=== PATIENT | female | born 1985 | race Caucasian/White ===

== ENCOUNTER 2018-03-20 13:07 | Emergency (ER) | payer OTHER, SELFPAY ==
[2018-03-20 13:12] VITALS: BP 123/74; PULSE 96; RESP 24; TEMP 36.3; O2SAT 100; BMI 43.0
--- NOTE | 2018-03-20 13:41 | DI.RAD.S_ITS ---
PROCEDURE: XR CHEST 2V INDICATIONS: productive cough TECHNIQUE: 2 views of the chest were acquired. COMPARISON: None. FINDINGS: Surgical changes and devices: Central line from right sided approach, Port-A-Cath, extends to the atrial caval junction.. Lungs and pleura: No pleural effusions or pneumothorax. Lungs are clear. Mediastinum: Mediastinal contours are normal. Heart size is normal. Bones and chest wall: No suspicious bony abnormalities. Soft tissues appear unremarkable. IMPRESSION: No pneumonia found. Port-A-Cath tip at the atrial caval junction. No active disease found. Dictated by: Lavelle Griggs M.D. on 03/20/2018 at 14:17 Approved by: Lavelle Griggs M.D. on 03/20/2018 at 14:19
[2018-03-20 14:16] LABS: Bacteria Urine Moderate (10-30); RBC Urine 0-1/HPF (0-5/HPF); Squamous Epithelial Cell Urine 0-1 /HPF; WBC Urine 0-1/HPF (0-5/HPF)
[2018-03-20 14:18] LABS: Culture Indicated Urine Cult Not Indicated
[2018-03-20] MEDS: KETOROLAC 60 MG/2 ML VIAL IM (14:33)
[2018-03-20] MEDS: predniSONE 20 MG TABLET 40 MG PO (14:35)
[2018-03-20 14:39] VITALS: PULSE 84; RESP 18; O2SAT 95
[2018-03-20] MEDS: ALBUTEROL 2.5 MG/3 ML NEB (ADULT) INH (14:39)
[2018-03-20] MEDS: CYCLOBENZAPRINE 10 MG TABLET PO (15:33)
[2018-03-20 15:34] VITALS: BP 103/64; PULSE 82; RESP 18; TEMP 36.9; O2SAT 99
--- NOTE | 2018-03-20 18:36 | ED.SOB ---
HPI - SOB/Dyspnea <Cindy Arcos [employer]-BC - Last Filed: 03/20/18 18:46> General Chief Complaint: Shortness of Breath/Dyspnea Stated Complaint: STATES CAN'T BREATH Time Seen by Provider: 03/20/18 13:34 Source: patient and family Mode of arrival: ambulatory Limitations: no limitations History of Present Illness Patient presents with chief complaint of shortness of breath and wheezing. She states she has a history of asthma. She states she is out of her albuterol nebulizers. She is complaining of cough, slight fever. She states that her left rib hurts and her lungs were burning. She denies any vomiting or diarrhea or chest pain. Patient is any palpitations. She states that her ribs hurt only when being pressed or taking a deep breath. She denies any abdominal pain. She denies any urinary symptoms. She denies chance of . Related Data Home Medications Medication Instructions Recorded Confirmed hydroxychloroquine [Plaquenil] 200 mg PO BIDCC #0 02/28/17 03/20/18 omeprazole 20 mg PO BID #0 02/28/17 03/20/18 Benlysta 1 dose IM Q4W 03/20/18 03/20/18 Orenda 1 dose PO DAILY 03/20/18 03/20/18 Vitamin B-2 200 mg PO BID 03/20/18 03/20/18 epinephrine [EpiPen 2-Chris] 1 dose IM PRN PRN 03/20/18 03/20/18 melatonin 5 mg PO BEDTIME PRN 03/20/18 03/20/18 Previous Rx's Medication Instructions Recorded albuterol sulfate 2.5 mg INHALATION Q4-6H PRN #75 ml 03/20/18 prednisone 40 mg PO DAILY #8 tab 03/20/18 Allergies Allergy/AdvReac Type Severity Reaction Status Date / Time amoxicillin [AMOXICILLIN] Allergy Unknown Verified 03/20/18 14:32 betamethasone [BETAMETHASONE] Allergy Unknown Verified 03/20/18 14:32 clarithromycin [From BIAXIN] Allergy Unknown Verified 03/20/18 14:32 coconut [COCONUT] Allergy Unknown Verified 03/20/18 14:32 Iodinated Contrast- Oral and Allergy Unknown Verified 03/20/18 14:32 IV Dye [IODINATED CONTRAST- ORAL AND IV DYE] peanut [PEANUT] Allergy Unknown Verified 03/20/18 14:32 Penicillins [PENICILLINS] Allergy Unknown Verified 03/20/18 14:32 pineapple [PINEAPPLE] Allergy Unknown Verified 03/20/18 14:32 shellfish derived Allergy Unknown Verified 03/20/18 14:32 [SHELLFISH DERIVED] Review of Systems <Cindy ArcosMAJORP-BC - Last Filed: 03/20/18 18:46> Review of Systems GENERAL: Denies chills, fatigue, malaise, fever, sweats. HEENT: Denies sinus pain, ear pain, sore throat, difficulty swallowing, dizziness. RESPIRATORY: See HPI CARDIOVASCULAR: Denies chest pain, palpitations, orthopnea, edema, GASTROINTESTINAL: Denies nausea, vomiting, abdominal pain, diarrhea, constipation, melena. : Denies dysuria, frequency, incontinence, hematuria, urinary retention. MUSCULOSKELETAL: denies weakness, joint pain, or bony pain SKIN: Denies rash, skin lesions, or other NEUROLOGIC: Denies weakness, headache, numbness, change in speech, confusion, seizures, incoordination. PSYCHIATRIC: No concerning psychosocial issues. 12 point review of systems is negative except for those stated above Exam <Cindyalberto Seo[facility] - Last Filed: 03/20/18 18:46> Narrative Exam Narrative: GENERAL: obese patient laying back on stretcher HEAD: Atraumatic. Normocephalic. No temporal or scalp tenderness. EYES: Pupils equal round and reactive. Extraocular motions intact. No scleral icterus. No injection or drainage. ENT: Nose without bleeding, purulent drainage or septal hematoma. Throat without erythema, tonsillar hypertrophy or exudate. Uvula midline. Airway patent. NECK: Trachea midline. No JVD or lymphadenopathy. Supple, nontender, no meningeal signs. CARDIOVASCULAR: Regular rate and rhythm without murmurs, gallops, or rubs. RESPIRATORY: expiratory wheezes to auscultation bilaterally. No rales or rhonchi. no accessory muscle use noted. 2-3 word dyspnea noted. Dry cough noted on exam. Pain on lateral wall chest compression. No pain on anterior posterior chest wall compression. Pain on palpation right chest wall. GASTROINTESTINAL: Abdomen soft, non-tender, nondistended. No hepato-splenomegaly, or palpable masses. No guarding. EXTREMITIES: No clubbing, cyanosis, or edema. No joint tenderness, effusion, or edema noted. BACK: Nontender without deformity or crepitance. No flank tenderness. NEURO: AOx3. SKIN: No rash or erythema. Initial Vital Signs Initial Vital Signs: Vital Signs Temperature 97.3 F L 03/20/18 13:12 Pulse Rate 96 H 03/20/18 13:12 Respiratory Rate 24 03/20/18 13:12 Blood Pressure 123/74 03/20/18 13:12 Pulse Oximetry 100 03/20/18 13:12 <Mehdi Esquivel DO - Last Filed: 03/20/18 19:50> Initial Vital Signs Initial Vital Signs: Vital Signs Temperature 97.3 F L 03/20/18 13:12 Pulse Rate 96 H 03/20/18 13:12 Respiratory Rate 24 03/20/18 13:12 Blood Pressure 123/74 03/20/18 13:12 Pulse Oximetry 100 03/20/18 13:12 Course <NINA Oliver - Last Filed: 03/20/18 18:46> Orders Ordered: ED Orders 03/20/18 13:41 XR chest 2V Stat RT Consult Eval and Treat Now 03/20/18 14:00 Urine Microscopic Stat Discontinued Medications Albuterol (Ventolin) 2.5 mg INH NOW ONE Stop: 03/20/18 14:34 Last Admin: 03/20/18 14:39 Dose: 2.5 mg Cyclobenzaprine HCl (Flexeril) 10 mg PO NOW ONE Stop: 03/20/18 15:04 Last Admin: 03/20/18 15:33 Dose: 10 mg Ketorolac Tromethamine (Toradol) 60 mg IM NOW ONE Stop: 03/20/18 13:43 Last Admin: 03/20/18 14:33 Dose: 60 mg Prednisone (Deltasone) 40 mg PO NOW ONE Stop: 03/20/18 13:48 Last Admin: 03/20/18 14:35 Dose: 40 mg Vital Signs - 8 hr 03/20/18 13:12 03/20/18 14:39 03/20/18 15:34 Temperature 97.3 F L 98.5 F Pulse Rate 96 H 84 82 Respiratory Rate 24 18 18 Blood Pressure 123/74 103/64 Pulse Oximetry 100 95 99 <Mehdi Esquivel DO - Last Filed: 03/20/18 19:50> Orders Ordered: ED Orders 03/20/18 13:41 XR chest 2V Stat RT Consult Eval and Treat Now 03/20/18 14:00 Urine Microscopic Stat Discontinued Medications Albuterol (Ventolin) 2.5 mg INH NOW ONE Stop: 03/20/18 14:34 Last Admin: 03/20/18 14:39 Dose: 2.5 mg Cyclobenzaprine HCl (Flexeril) 10 mg PO NOW ONE Stop: 03/20/18 15:04 Last Admin: 03/20/18 15:33 Dose: 10 mg Ketorolac Tromethamine (Toradol) 60 mg IM NOW ONE Stop: 03/20/18 13:43 Last Admin: 03/20/18 14:33 Dose: 60 mg Prednisone (Deltasone) 40 mg PO NOW ONE Stop: 03/20/18 13:48 Last Admin: 03/20/18 14:35 Dose: 40 mg Vital Signs - 8 hr 03/20/18 13:12 03/20/18 14:39 03/20/18 15:34 Temperature 97.3 F L 98.5 F Pulse Rate 96 H 84 82 Respiratory Rate 24 18 18 Blood Pressure 123/74 103/64 Pulse Oximetry 100 95 99 MDM - SOB/Dyspnea <NINA Oliver - Last Filed: 03/20/18 18:46> Lab Data Lab Results 03/20/18 Range/Units 14:00 Urine RBC 0-1/hpf (0-5/HPF) Urine WBC 0-1/hpf (0-5/HPF) Ur Squamous Epith Cells 0-1 /hpf Urine Bacteria Moderate (10-30) H (None) Ur Culture Indicated? Cult not indicated Micro UA Comment call if culture need Point of Care Testing Test Results Negative Urine Dip Bedside Urine Glucose Negative Bedside Urine Bilirubin - Negative Bedside Urine Ketone - Negative Urine Specific [place] 1.01 Bedside Urine Occult Blood + Bedside Urine pH 7.0 Bedside Urine Protein - Negative Bedside Urine Urobilinogen - Negative Bedside Urine Nitrite - Negative Bedside Urine Leukocytes - Negative Esterase Imaging Data Chest x-ray: Radiologist's impression: [address] [address] XRay Report Signed Patient: Ania Dejesus RMR#: [id number] : 1985Acct:[id number] Age/Sex: 32 / FDate of Service: 03/20/18 Loc: ED Accession Number: [id number] Procedure: XR chest 2V Ordering Provider: Cindy Arcos PROCEDURE: XR CHEST 2V INDICATIONS: productive cough TECHNIQUE: 2 views of the chest were acquired. COMPARISON: None. FINDINGS: Surgical changes and devices: Central line from right sided approach, Port-A-Cath, extends to the atrial caval junction.. Lungs and pleura: No pleural effusions or pneumothorax. Lungs are clear. Mediastinum: Mediastinal contours are normal. Heart size is normal. Bones and chest wall: No suspicious bony abnormalities. Soft tissues appear unremarkable. IMPRESSION: No pneumonia found. Port-A-Cath tip at the atrial caval junction. No active disease found. Dictated by: Lavelle Griggs M.D. on 03/20/2018 at 14:17 Approved by: Lavelle Griggs M.D. on 03/20/2018 at 14:19 [facility] Narrative Medical decision making narrative: Patient presents with chief complaint of shortness of breath. She had is an asthma patient who has not her medications. She remained hemodynamically stable in the emergency department. Her x-ray showed no acute etiology. Her breathing was much improved after nebulizer treatment as well as p.o. steroids. Thus I placed her in a p.o. steroid burst, refilled her albuterol nebulizers, and discussed follow up with primary care provider. She does have chest wall pain to musculoskeletal palpation on exam. Thus she states she has plenty of naproxen and muscle relaxers at home. She had no questions or concerns upon discharge. <Mehdi Esquivel, DO - Last Filed: 03/20/18 19:50> Lab Data Lab Results 03/20/18 Range/Units 14:00 Urine RBC 0-1/hpf (0-5/HPF) Urine WBC 0-1/hpf (0-5/HPF) Ur Squamous Epith Cells 0-1 /hpf Urine Bacteria Moderate (10-30) H (None) Ur Culture Indicated? Cult not indicated Micro UA Comment call if culture need Point of Care Testing Test Results Negative Urine Dip Bedside Urine Glucose Negative Bedside Urine Bilirubin - Negative Bedside Urine Ketone - Negative Urine Specific [place] 1.01 Bedside Urine Occult Blood + Bedside Urine pH 7.0 Bedside Urine Protein - Negative Bedside Urine Urobilinogen - Negative Bedside Urine Nitrite - Negative Bedside Urine Leukocytes - Negative Esterase Discharge Plan Departure Patient Disposition: Home Clinical Impression: Asthma exacerbation, Chest wall pain Discharge Date/Time: 03/20/18 15:41 Interventions: ED Discharge Assessment Last Done: 03/20/18 15:34 Instructions: DI for Asthma -- Adult, DI for Costochondritis Activity Restrictions/Additional Instructions: Your chest x-ray showed no pneumonia today. I am starting you on prednisone to take for several days given the severity of your wheezing. I am also giving you some albuterol nebulizers to take as needed. Please follow-up with her primary care for new or worsening symptoms. I also suggested using NSAIDs and/or heat or ice given her rib pain. Please do not take any NSAIDs such as naproxen or ibuprofen for 8 hr after your Toradol injection. Please follow-up her primary care provider. Please monitor for chest pain shortness of breath or other acute concerns and feel free to come back to the emergency department if needed. Prescriptions: New albuterol sulfate 2.5 mg /3 mL (0.083 %) solution for nebulization 2.5 mg INHALATION Q4-6H PRN (Reason: wheezing ) Qty: 75 RF: 0 prednisone 20 mg tablet 40 mg PO DAILY Qty: 8 RF: 0 No Action omeprazole 20 MG capsule,delayed release(DR/EC) 20 mg PO BID Qty: 0 RF: 0 hydroxychloroquine [Plaquenil] 200 MG tablet 200 mg PO BIDCC Qty: 0 RF: 0 epinephrine [EpiPen 2-Chris] 0.3 mg/0.3 mL auto-injector 1 dose IM PRN PRN (Reason: Allergic Reaction) RF: 0 melatonin 5 mg Tablet 5 mg PO BEDTIME PRN (Reason: Sleep) RF: 0 Benlysta 1 dose IM Q4W RF: 0 Orenda 1 dose PO DAILY RF: 0 Vitamin B-2 200 mg 200 mg PO BID RF: 0 Referrals: Denise Patel [Primary Care Provider] - <Mehdi Esquivel DO - Last Filed: 03/20/18 19:50> Cosign ED Attending Cory Attestation: I was immediately available in the department for consultation. Documentation has been reviewed. I agree with assessment and plan.
--- NOTE | 2018-03-20 18:46 | ED_ITS ---
HPI - SOB/Dyspnea <Cindy Arcos W[employer] ASSISTANT-BC - Last Filed: 03/20/18 18:46> General Chief Complaint: Shortness of Breath/Dyspnea Stated Complaint: STATES CAN'T BREATH Time Seen by Provider: 03/20/18 13:34 Source: patient and family Mode of arrival: ambulatory Limitations: no limitations History of Present Illness Patient presents with chief complaint of shortness of breath and wheezing. She states she has a history of asthma. She states she is out of her albuterol nebulizers. She is complaining of cough, slight fever. She states that her left rib hurts and her lungs were burning. She denies any vomiting or diarrhea or chest pain. Patient is any palpitations. She states that her ribs hurt only when being pressed or taking a deep breath. She denies any abdominal pain. She denies any urinary symptoms. She denies chance of . Related Data Home Medications Medication Instructions Recorded Confirmed hydroxychloroquine [Plaquenil] 200 mg PO BIDCC #0 02/28/17 03/20/18 omeprazole 20 mg PO BID #0 02/28/17 03/20/18 Benlysta 1 dose IM Q4W 03/20/18 03/20/18 Orenda 1 dose PO DAILY 03/20/18 03/20/18 Vitamin B-2 200 mg PO BID 03/20/18 03/20/18 epinephrine [EpiPen 2-Chris] 1 dose IM PRN PRN 03/20/18 03/20/18 melatonin 5 mg PO BEDTIME PRN 03/20/18 03/20/18 Previous Rx's Medication Instructions Recorded albuterol sulfate 2.5 mg INHALATION Q4-6H PRN #75 ml 03/20/18 prednisone 40 mg PO DAILY #8 tab 03/20/18 Allergies Allergy/AdvReac Type Severity Reaction Status Date / Time amoxicillin [AMOXICILLIN] Allergy Unknown Verified 03/20/18 14:32 betamethasone [BETAMETHASONE] Allergy Unknown Verified 03/20/18 14:32 clarithromycin [From BIAXIN] Allergy Unknown Verified 03/20/18 14:32 coconut [COCONUT] Allergy Unknown Verified 03/20/18 14:32 Iodinated Contrast- Oral and Allergy Unknown Verified 03/20/18 14:32 IV Dye [IODINATED CONTRAST- ORAL AND IV DYE] peanut [PEANUT] Allergy Unknown Verified 03/20/18 14:32 Penicillins [PENICILLINS] Allergy Unknown Verified 03/20/18 14:32 pineapple [PINEAPPLE] Allergy Unknown Verified 03/20/18 14:32 shellfish derived Allergy Unknown Verified 03/20/18 14:32 [SHELLFISH DERIVED] Review of Systems <Cindy ArcosMAJORP-BC - Last Filed: 03/20/18 18:46> Review of Systems GENERAL: Denies chills, fatigue, malaise, fever, sweats. HEENT: Denies sinus pain, ear pain, sore throat, difficulty swallowing, dizziness. RESPIRATORY: See HPI CARDIOVASCULAR: Denies chest pain, palpitations, orthopnea, edema, GASTROINTESTINAL: Denies nausea, vomiting, abdominal pain, diarrhea, constipation, melena. : Denies dysuria, frequency, incontinence, hematuria, urinary retention. MUSCULOSKELETAL: denies weakness, joint pain, or bony pain SKIN: Denies rash, skin lesions, or other NEUROLOGIC: Denies weakness, headache, numbness, change in speech, confusion, seizures, incoordination. PSYCHIATRIC: No concerning psychosocial issues. 12 point review of systems is negative except for those stated above Exam <Cindyalberto Seoalyson [facility] - Last Filed: 03/20/18 18:46> Narrative Exam Narrative: GENERAL: obese patient laying back on stretcher HEAD: Atraumatic. Normocephalic. No temporal or scalp tenderness. EYES: Pupils equal round and reactive. Extraocular motions intact. No scleral icterus. No injection or drainage. ENT: Nose without bleeding, purulent drainage or septal hematoma. Throat without erythema, tonsillar hypertrophy or exudate. Uvula midline. Airway patent. NECK: Trachea midline. No JVD or lymphadenopathy. Supple, nontender, no meningeal signs. CARDIOVASCULAR: Regular rate and rhythm without murmurs, gallops, or rubs. RESPIRATORY: expiratory wheezes to auscultation bilaterally. No rales or rhonchi. no accessory muscle use noted. 2-3 word dyspnea noted. Dry cough noted on exam. Pain on lateral wall chest compression. No pain on anterior posterior chest wall compression. Pain on palpation right chest wall. GASTROINTESTINAL: Abdomen soft, non-tender, nondistended. No hepato-splenomegaly , or palpable masses. No guarding. EXTREMITIES: No clubbing, cyanosis, or edema. No joint tenderness, effusion, or edema noted. BACK: Nontender without deformity or crepitance. No flank tenderness. NEURO: AOx3. SKIN: No rash or erythema. Initial Vital Signs Initial Vital Signs: Vital Signs Temperature 97.3 F L 03/20/18 13:12 Pulse Rate 96 H 03/20/18 13:12 Respiratory Rate 24 03/20/18 13:12 Blood Pressure 123/74 03/20/18 13:12 Pulse Oximetry 100 03/20/18 13:12 <Mehdi Esquivel DO - Last Filed: 03/20/18 19:50> Initial Vital Signs Initial Vital Signs: Vital Signs Temperature 97.3 F L 03/20/18 13:12 Pulse Rate 96 H 03/20/18 13:12 Respiratory Rate 24 03/20/18 13:12 Blood Pressure 123/74 03/20/18 13:12 Pulse Oximetry 100 03/20/18 13:12 Course <NINA lOiver - Last Filed: 03/20/18 18:46> Orders Ordered: ED Orders 03/20/18 13:41 XR chest 2V Stat RT Consult Eval and Treat Now 03/20/18 14:00 Urine Microscopic Stat Discontinued Medications Albuterol (Ventolin) 2.5 mg INH NOW ONE Stop: 03/20/18 14:34 Last Admin: 03/20/18 14:39 Dose: 2.5 mg Cyclobenzaprine HCl (Flexeril) 10 mg PO NOW ONE Stop: 03/20/18 15:04 Last Admin: 03/20/18 15:33 Dose: 10 mg Ketorolac Tromethamine (Toradol) 60 mg IM NOW ONE Stop: 03/20/18 13:43 Last Admin: 03/20/18 14:33 Dose: 60 mg Prednisone (Deltasone) 40 mg PO NOW ONE Stop: 03/20/18 13:48 Last Admin: 03/20/18 14:35 Dose: 40 mg Vital Signs - 8 hr 03/20/18 13:12 03/20/18 14:39 03/20/18 15:34 Temperature 97.3 F L 98.5 F Pulse Rate 96 H 84 82 Respiratory Rate 24 18 18 Blood Pressure 123/74 103/64 Pulse Oximetry 100 95 99 <Mehdi Esquivel DO - Last Filed: 03/20/18 19:50> Orders Ordered: ED Orders 03/20/18 13:41 XR chest 2V Stat RT Consult Eval and Treat Now 03/20/18 14:00 Urine Microscopic Stat Discontinued Medications Albuterol (Ventolin) 2.5 mg INH NOW ONE Stop: 03/20/18 14:34 Last Admin: 03/20/18 14:39 Dose: 2.5 mg Cyclobenzaprine HCl (Flexeril) 10 mg PO NOW ONE Stop: 03/20/18 15:04 Last Admin: 03/20/18 15:33 Dose: 10 mg Ketorolac Tromethamine (Toradol) 60 mg IM NOW ONE Stop: 03/20/18 13:43 Last Admin: 03/20/18 14:33 Dose: 60 mg Prednisone (Deltasone) 40 mg PO NOW ONE Stop: 03/20/18 13:48 Last Admin: 03/20/18 14:35 Dose: 40 mg Vital Signs - 8 hr 03/20/18 13:12 03/20/18 14:39 03/20/18 15:34 Temperature 97.3 F L 98.5 F Pulse Rate 96 H 84 82 Respiratory Rate 24 18 18 Blood Pressure 123/74 103/64 Pulse Oximetry 100 95 99 MDM - SOB/Dyspnea <NINA Oliver - Last Filed: 03/20/18 18:46> Lab Data Lab Results 03/20/18 Range/Units 14:00 Urine RBC 0-1/hpf (0-5/HPF) Urine WBC 0-1/hpf (0-5/HPF) Ur Squamous Epith Cells 0-1 /hpf Urine Bacteria Moderate (10-30) H (None) Ur Culture Indicated? Cult not indicated Micro UA Comment call if culture need Point of Care Testing Test Results Negative Urine Dip Bedside Urine Glucose Negative Bedside Urine Bilirubin - Negative Bedside Urine Ketone - Negative Urine Specific [place] 1.01 Bedside Urine Occult Blood + Bedside Urine pH 7.0 Bedside Urine Protein - Negative Bedside Urine Urobilinogen - Negative Bedside Urine Nitrite - Negative Bedside Urine Leukocytes - Negative Esterase Imaging Data Chest x-ray: Radiologist's impression: [address] [address] XRay Report Signed Patient: Ania Dejesus RMR#: [id number] : 1985Acct:[id number] Age/Sex: 32 / FDate of Service: 03/20/18 Loc: ED Accession Number: [id number] Procedure: XR chest 2V Ordering Provider: Cindy Arcos PROCEDURE: XR CHEST 2V INDICATIONS: productive cough TECHNIQUE: 2 views of the chest were acquired. COMPARISON: None. FINDINGS: Surgical changes and devices: Central line from right sided approach, Port-A- Cath, extends to the atrial caval junction.. Lungs and pleura: No pleural effusions or pneumothorax. Lungs are clear. Mediastinum: Mediastinal contours are normal. Heart size is normal. Bones and chest wall: No suspicious bony abnormalities. Soft tissues appear unremarkable. IMPRESSION: No pneumonia found. Port-A-Cath tip at the atrial caval junction. No active disease found. Dictated by: Lavelle Griggs M.D. on 03/20/2018 at 14:17 Approved by: Lavelle Griggs M.D. on 03/20/2018 at 14:19 [facility] Narrative Medical decision making narrative: Patient presents with chief complaint of shortness of breath. She had is an asthma patient who has not her medications. She remained hemodynamically stable in the emergency department. Her x-ray showed no acute etiology. Her breathing was much improved after nebulizer treatment as well as p.o. steroids. Thus I placed her in a p.o. steroid burst, refilled her albuterol nebulizers, and discussed follow up with primary care provider. She does have chest wall pain to musculoskeletal palpation on exam. Thus she states she has plenty of naproxen and muscle relaxers at home. She had no questions or concerns upon discharge. <Mehdi Esquivel, DO - Last Filed: 03/20/18 19:50> Lab Data Lab Results 03/20/18 Range/Units 14:00 Urine RBC 0-1/hpf (0-5/HPF) Urine WBC 0-1/hpf (0-5/HPF) Ur Squamous Epith Cells 0-1 /hpf Urine Bacteria Moderate (10-30) H (None) Ur Culture Indicated? Cult not indicated Micro UA Comment call if culture need Point of Care Testing Test Results Negative Urine Dip Bedside Urine Glucose Negative Bedside Urine Bilirubin - Negative Bedside Urine Ketone - Negative Urine Specific [place] 1.01 Bedside Urine Occult Blood + Bedside Urine pH 7.0 Bedside Urine Protein - Negative Bedside Urine Urobilinogen - Negative Bedside Urine Nitrite - Negative Bedside Urine Leukocytes - Negative Esterase Discharge Plan Departure Patient Disposition: Home Clinical Impression: Asthma exacerbation, Chest wall pain Discharge Date/Time: 03/20/18 15:41 Interventions: ED Discharge Assessment Last Done: 03/20/18 15:34 Instructions: DI for Asthma -- Adult, DI for Costochondritis Activity Restrictions/Additional Instructions: Your chest x-ray showed no pneumonia today. I am starting you on prednisone to take for several days given the severity of your wheezing. I am also giving you some albuterol nebulizers to take as needed. Please follow-up with her primary care for new or worsening symptoms. I also suggested using NSAIDs and/or heat or ice given her rib pain. Please do not take any NSAIDs such as naproxen or ibuprofen for 8 hr after your Toradol injection. Please follow-up her primary care provider. Please monitor for chest pain shortness of breath or other acute concerns and feel free to come back to the emergency department if needed. Prescriptions: New albuterol sulfate 2.5 mg /3 mL (0.083 %) solution for nebulization 2.5 mg INHALATION Q4-6H PRN (Reason: wheezing ) Qty: 75 RF: 0 prednisone 20 mg tablet 40 mg PO DAILY Qty: 8 RF: 0 No Action omeprazole 20 MG capsule,delayed release(DR/EC) 20 mg PO BID Qty: 0 RF: 0 hydroxychloroquine [Plaquenil] 200 MG tablet 200 mg PO BIDCC Qty: 0 RF: 0 epinephrine [EpiPen 2-Chris] 0.3 mg/0.3 mL auto-injector 1 dose IM PRN PRN (Reason: Allergic Reaction) RF: 0 melatonin 5 mg Tablet 5 mg PO BEDTIME PRN (Reason: Sleep) RF: 0 Benlysta 1 dose IM Q4W RF: 0 Orenda 1 dose PO DAILY RF: 0 Vitamin B-2 200 mg 200 mg PO BID RF: 0 Referrals: Denise Patel [Primary Care Provider] - <Mehdi Esquivel DO - Last Filed: 03/20/18 19:50> Cosign ED Attending Cory Attestation: I was immediately available in the department for consultation. Documentation has been reviewed. I agree with assessment and plan.
== END 2018-03-20 15:41 | disposition home or self-care (01) ==
PROVIDERS: Emergency Provider Nurse Practitioner Family; PCP Physician Assistant Medical
DX: J45.901 Unspecified asthma with (acute) exacerbation (principal); R07.89 Other chest pain
CPT/HCPCS: 71046; 81003; 81015; 81025; 94640; 96372; 99282; 99284; J1885; J7613

== ENCOUNTER 2018-04-08 06:03 | Day surgery (SDC) | payer OTHER, SELFPAY ==
[2018-04-02 09:04] VITALS: BMI 44.9
[2018-04-08] VITALS (9 sets, daily range): BP systolic 113–119; BP diastolic 67–78; PULSE 82–105; RESP 12–21; TEMP 36.6–37.4; O2SAT 95–100; BMI 44.9
[2018-04-08] MEDS: LACTATED RINGERS 1,000 ML 42 ML IV (06:55)
--- NOTE | 2018-04-08 07:31 | PM.PREOP ---
Pre-operative Note Interval Note Pre-op Check: Yes History & Physical Reviewed by Physician Changes: No
--- NOTE | 2018-04-08 07:38 | PM.OP.1 ---
Operative Date/Time/Diagnoses Date of procedure: 04/08/18 Time of procedure: 07:38 Pre-op diagnosis: Recurrent ingrown toenail spicules both great toes. Post-op diagnosis: same Procedure & Clinicians Procedure: Right and left great toe revision matrixectomies Same procedure as scheduled: Yes Indications: Recurrent spicules to the great toenails with pain on both feet Surgeon: Jaimie Mackay Click Yes if Unassisted: Yes Anesthesia Type: General and Local Operative Notes Closure Type: not applicable Specimen(s): none sent Estimated Blood Loss (mL): 1 Blood products transfused: none Tourniquet time (min): 19 Procedure in detail: Patient was brought to the operating room and placed on the operative table in supine position. Following induction of general anesthesia the above injectables were delivered to the patient. The feet were prepped and draped in the usual aseptic manner. After check of anesthesia Nyasia drain was placed about the left hallux. Nail spicules were removed and the central area of the nail was checked to determine if any further the nail was present here. There appeared to be a thin layer of thicker skin centrally that I could not rule out as portion of nail, so it was removed as well. The surrounding skin was protected with triple antibiotic ointment series 4 applications of phenol at 30 sec each were placed in each of these areas. Following each the area was curetted from the last was rinsed with alcohol. The tourniquet was deflated. A prompt hyperemic response was seen to the toe. The area was cleaned and dressed with triple antibiotic ointment Xeroform 4x4s and gently placed Coban. The same procedure was performed to the right great toe, however there was not any central nail to remove, just medial and lateral nail spicules which were removed. Complications: none Condition: stable Disposition: PACU Plan for aftercare: Following a period of postoperative monitoring the patient be discharged home on written and oral postoperative instructions including keeping the dressings dry and intact however tomorrow will be her 1st postoperative dressing change. She will also start doing her soaks tomorrow and is given triple antibiotic ointment as well as Xeroform and we have reviewed instructions preoperatively in our visit and she is also given a handout to remind her once again how to care for these. She is going to stop by our office to pharmacy picking technician a prescription for postoperative shoes as she found last night that she did not have them when she thought she did. We will see her for her postoperative visit in about 7-10 days.
[2018-04-08] MEDS: ONDANSETRON 4 MG/2 ML INJ IV (07:40)
[2018-04-08] MEDS: MIDAZOLAM 2 MG/2 ML VIAL IV (07:45)
[2018-04-08] MEDS: SCOPOLAMINE 1 PATCH TOP (07:45)
[2018-04-08] MEDS: CLINDAMYCIN 600 MG/50 ML PIGGYBACK 50 MG IV (07:50)
--- NOTE | 2018-04-08 08:16 | SUR.OPER ---
Supine on padded OR bed, head on pillow, arms secured on padded arm boards at <90 degrees abduction, legs uncrossed, safety belt at thigh, tape over blanket over lower legs.
--- NOTE | 2018-04-08 08:30 | SUR.OPER ---
antonio tourniquet up bilaterally at 0811 and down at 0830.
[2018-04-08] MEDS: LORazepam 2 MG/ML SYRINGE 0.5 MG IV (08:57)
== END 2018-04-08 09:47 | disposition home or self-care (01) ==
PROVIDERS: PCP Physician Assistant Medical; Visit Provider Podiatrist
PROC: 0HTRXZZ Resection of Toe Nail, External Approach (ICD-10-PCS; CPT 11750; principal; 2018-04-08 07:45)
DX: L60.0 Ingrowing nail (principal); E66.9 Obesity, unspecified; M32.9 Systemic lupus erythematosus, unspecified; F41.9 Anxiety disorder, unspecified; F43.10 Post-traumatic stress disorder, unspecified; Z68.41 Body mass index [BMI] 40.0-44.9, adult
CPT/HCPCS: 11750 ×2; J1100; J2060; J2250; J2405; J2704; J2765; J3010

== ENCOUNTER 2018-06-05 12:23 | Emergency (ER) | payer OTHER, SELFPAY ==
[2018-06-05 12:30] VITALS: BP 134/62; PULSE 100; RESP 18; TEMP 37.3; O2SAT 100; BMI 39.4
[2018-06-05 12:41] LABS: RBC Urine None Seen (0-5/HPF)
--- NOTE | 2018-06-05 12:43 | ED_ITS ---
HPI - Fever <Giovanni TC Alexandra - Last Filed: 06/05/18 21:19> General Chief Complaint: Fever Stated Complaint: FEVER,HAD KIDNEY INFECTION Time Seen by Provider: 06/05/18 12:24 Source: patient Mode of arrival: ambulatory Limitations: no limitations History of Present Illness HPI Narrative: 32-year-old female with history a asthma is a nonsmoker here for complaint fever over the past couple of days with right flank pain and increased urinary frequency. She reports that 10 days ago she was treated for urinary tract infection and was placed on ciprofloxacin. She reports that her symptoms got better until 2 days ago when they seem to return with fever. She denies any nausea or vomiting. No abdominal pain. She denies any other symptoms. She is tolerating p.o. intake. She denies any stressors or relievers of her discomfort MD complaint: fever Related Data Home Medications Medication Instructions Recorded Confirmed hydroxychloroquine [Plaquenil] 200 mg PO BIDCC #0 02/28/17 06/07/18 omeprazole 20 mg PO BID #0 02/28/17 06/07/18 Vitamin B-2 200 mg PO BID 03/20/18 06/07/18 belimumab [Benlysta] 960 mg SUBCUT Q4W 03/20/18 06/07/18 epinephrine [EpiPen 2-Chris] 1 dose IM PRN PRN 03/20/18 06/07/18 melatonin 5 mg PO BEDTIME PRN 03/20/18 06/07/18 Previous Rx's Medication Instructions Recorded albuterol sulfate 2.5 mg INHALATION Q4-6H PRN #75 ml 03/20/18 ondansetron 4 mg PO BID-TID PRN #10 tab 06/05/18 Allergies Allergy/AdvReac Type Severity Reaction Status Date / Time amoxicillin [AMOXICILLIN] Allergy Unknown Verified 06/07/18 13:10 betamethasone [BETAMETHASONE] Allergy Unknown Anaphylaxis Verified 06/07/18 13: 10 clarithromycin [From BIAXIN] Allergy Unknown Verified 06/07/18 13:10 coconut [COCONUT] Allergy Unknown Verified 06/07/18 13:10 Iodinated Contrast- Oral and Allergy Unknown Anaphylaxis Verified 06/07/18 13:10 IV Dye [IODINATED CONTRAST- ORAL AND IV DYE] peanut [PEANUT] Allergy Unknown Verified 06/07/18 13:10 Penicillins [PENICILLINS] Allergy Unknown Verified 06/07/18 13:10 pineapple [PINEAPPLE] Allergy Unknown Verified 06/07/18 13:10 shellfish derived Allergy Unknown Verified 06/07/18 13:10 [SHELLFISH DERIVED] diphenhydramine AdvReac Verified 06/07/18 13:10 [From Benadryl] Review of Systems <TC Cornelius - Last Filed: 06/05/18 21:19> Constitutional Denies chills, Reports fever(s), Denies lethargy and Denies weakness Eyes Denies change in vision, Denies eye discharge, Denies irritation and Denies loss of vision ENT Ears, Nose, Mouth, and Throat: Denies change in voice, Denies neck pain and Denies sore throat Cardiovascular Denies chest pain, Denies irregular heart rhythm, Denies lightheadedness, Denies palpitations, Denies dyspnea, Denies dyspnea on exertion and Denies orthopnea Respiratory Denies cough, Denies dyspnea, Denies dyspnea on exertion and Denies wheezing Gastrointestinal Gastrointestinal: Denies abdominal pain, Denies change in bowel habits, Denies diarrhea, Denies nausea and Denies vomiting Genitourinary Reports urinary urgency Musculoskeletal Denies neck pain Integumentary/Breasts Denies pruritus, Denies erythema, Denies rash and Denies wounds Neurologic Denies confusion, Denies loss of vision and Denies weakness Psychiatric Denies anxiety, Denies confusion, Denies depression, Denies homicidal ideation and Denies suicidal ideation Endocrine Denies palpitations Hematologic/Lymphatic Denies easy bruising Allergic/Immunologic Denies wheezing Exam <TC Cornelius - Last Filed: 06/05/18 21:19> Initial Vital Signs Initial Vital Signs: Vital Signs Temperature 99.2 F 06/05/18 12:30 Pulse Rate 100 H 06/05/18 12:30 Respiratory Rate 18 06/05/18 12:30 Blood Pressure 134/62 06/05/18 12:30 Pulse Oximetry 100 06/05/18 12:30 Const General: cooperative and well developed Nutritional Appearance: well nourished Orientation: alert, awake, oriented x3 and not confused HENMT Mouth: oral mucosae normal and moist mucous membranes Eyes Conjunctivae: conjunctivae normal Sclera: sclerae normal Pupils: PERRL EOM: EOM intact bilaterally Resp Effort & Inspection: normal respiratory effort, able to speak in complete sentences, no respiratory distress and no use of accessory muscles Auscultation: clear to auscultation bilaterally, no rales, no rhonchi and no wheezes Cardio Rate: regular rate Rhythm: regular rhythm Heart Sounds: no click, no gallops, no murmurs and no rubs Pulses: normal peripheral pulses GI Inspection: non-distended Palpation: soft, no hepatosplenomegaly, No guarding, No pulsatile mass and No tender Auscultation: normal bowel sounds General: CVA tenderness Skin General: no rashes or lesions noted, No jaundice and No petechiae Neuro General: alert, oriented x3, gait normal and no focal motor deficits Speech: speech normal <Cindy Villalba DO - Last Filed: 06/08/18 07:25> Initial Vital Signs Initial Vital Signs: Vital Signs Temperature 99.2 F 06/05/18 12:30 Pulse Rate 100 H 06/05/18 12:30 Respiratory Rate 18 06/05/18 12:30 Blood Pressure 134/62 06/05/18 12:30 Pulse Oximetry 100 06/05/18 12:30 Course <TC Cornelius - Last Filed: 06/05/18 21:19> Orders Ordered: Discontinued Medications Ceftriaxone Sodium/Dextrose (Rocephin) 1 gm in 50 mls @ 100 mls/hr IV NOW ONE Stop: 06/05/18 13:27 Last Infusion: 06/05/18 14:32 Dose: 0 mls/hr Admin: 06/05/18 13:44 Dose: 100 mls/hr Sodium Chloride (Normal Saline 0.9%) 1,000 mls @ 1,000 mls/hr IV BOLUS ONE Stop: 06/05/18 13:57 Last Infusion: 06/05/18 15:27 Dose: 0 mls/hr Admin: 06/05/18 13:44 Dose: 1,000 mls/hr Vital Signs - 8 hr 06/05/18 14:44 06/05/18 14:56 Temperature 98.6 F Pulse Rate 76 Respiratory Rate 18 Blood Pressure [Left Arm] 109/59 L Pulse Oximetry 100 <Cindy Villalba DO - Last Filed: 06/08/18 07:25> Orders Ordered: Discontinued Medications Ceftriaxone Sodium/Dextrose (Rocephin) 1 gm in 50 mls @ 100 mls/hr IV NOW ONE Stop: 06/05/18 13:27 Last Infusion: 06/05/18 14:32 Dose: 0 mls/hr Admin: 06/05/18 13:44 Dose: 100 mls/hr Sodium Chloride (Normal Saline 0.9%) 1,000 mls @ 1,000 mls/hr IV BOLUS ONE Stop: 06/05/18 13:57 Last Infusion: 06/05/18 15:27 Dose: 0 mls/hr Admin: 06/05/18 13:44 Dose: 1,000 mls/hr Vital Signs - 8 hr 06/05/18 14:44 06/05/18 14:56 Temperature 98.6 F Pulse Rate 76 Respiratory Rate 18 Blood Pressure [Left Arm] 109/59 L Pulse Oximetry 100 MDM - Fever <TC Cornelius - Last Filed: 06/05/18 21:19> Lab Data Result diagrams: 06/05/18 13:30 06/05/18 13:30 Lab Results 06/05/18 06/05/18 06/05/18 Range/Units 12:38 13:30 13:30 WBC 6.3 (4.5-11.0) X10^3/uL RBC 4.10 (4.0-5.2) X10^6/uL Hgb 12.1 (12.0-16.0) g/dL Hct 34.6 L (36-46) % MCV 84.5 (80-100) fL MCH 29.6 (26-34) PG MCHC 35.0 (30-36) % RDW 13.6 (11.6-14.8) % Plt Count 200 (150-400) X10^3/uL Neut % (Auto) 70.3 (50-75) % Lymph % (Auto) 20.7 L (25-40) % [place] % (Auto) 7.5 (3-14) % Eos % (Auto) 0.9 L (2-4) % Baso % (Auto) 0.6 (0-2) % Neut # (Auto) 4500 (8821-2121) /uL Sodium (137-145) mmol/L Potassium (3.4-5.1) mmol/L Chloride (98-107) mmol/L Carbon Dioxide (22-32) mmol/L BUN (7-17) mg/dL Creatinine (0.52-1.04) mg/dL Estimated GFR (>60) mL/min BUN/Creatinine Ratio (6-22) Glucose (70-100) mg/dL Lactate (0.7-2.1) mmol/L Calcium (8.4-10.2) mg/dL Total Bilirubin (0.2-1.3) mg/dL AST (14-36) IU/L ALT (9-52) IU/L Alkaline Phosphatase (38-126) U/L Total Protein (6.3-8.2) g/dL Albumin (3.5-5.0) g/dL Globulin (1.7-4.1) g/dL Albumin/Globulin Ratio (1.0-2.8) Procalcitonin < 0.05 (<0.5) ng/mL Urine RBC None seen (0-5/HPF) Urine WBC 5-10/hpf H (0-5/HPF) Ur Squamous Epith Cells 5-10 /hpf H Amorphous Sediment 1+ Urine Bacteria Many (>30) H (None) Urine Mucus 1+ H (Negative) Ur Culture Indicated? Specimen cultured Micro UA Comment Not Reportable 06/05/18 06/05/18 Range/Units 13:30 13:30 WBC (4.5-11.0) X10^3/uL RBC (4.0-5.2) X10^6/uL Hgb (12.0-16.0) g/dL Hct (36-46) % MCV (80-100) fL MCH (26-34) PG MCHC (30-36) % RDW (11.6-14.8) % Plt Count (150-400) X10^3/uL Neut % (Auto) (50-75) % Lymph % (Auto) (25-40) % [place] % (Auto) (3-14) % Eos % (Auto) (2-4) % Baso % (Auto) (0-2) % Neut # (Auto) (0262-8106) /uL Sodium 143 (137-145) mmol/L Potassium 3.6 (3.4-5.1) mmol/L Chloride 108 H (98-107) mmol/L Carbon Dioxide 22 (22-32) mmol/L BUN 11 (7-17) mg/dL Creatinine 0.60 (0.52-1.04) mg/dL Estimated GFR > 60.0 (>60) mL/min BUN/Creatinine Ratio 18.3 (6-22) Glucose 127 H (70-100) mg/dL Lactate 1.0 (0.7-2.1) mmol/L Calcium 9.1 (8.4-10.2) mg/dL Total Bilirubin 0.5 (0.2-1.3) mg/dL AST 21 (14-36) IU/L ALT 25 (9-52) IU/L Alkaline Phosphatase 46 (38-126) U/L Total Protein 6.4 (6.3-8.2) g/dL Albumin 4.1 (3.5-5.0) g/dL Globulin 2.3 (1.7-4.1) g/dL Albumin/Globulin Ratio 1.8 (1.0-2.8) Procalcitonin (<0.5) ng/mL Urine RBC (0-5/HPF) Urine WBC (0-5/HPF) Ur Squamous Epith Cells Amorphous Sediment Urine Bacteria (None) Urine Mucus (Negative) Ur Culture Indicated? Micro UA Comment Point of Care Testing Test Results Negative Urine Dip Bedside Urine Glucose Negative Bedside Urine Bilirubin - Negative Bedside Urine Ketone - Negative Urine Specific [place] 1.025 Bedside Urine Occult Blood - Negative Bedside Urine pH 6.0 Bedside Urine Protein - Negative Bedside Urine Urobilinogen - Negative Bedside Urine Nitrite - Negative Bedside Urine Leukocytes + 70 Esterase MDM Narrative Medical decision making narrative: CBC and Chem panel were obtained were unremarkable. Lactate procalcitonin were obtained were unremarkable. Urinalysis indicates urinary tract infection. She was given Rocephin 1 g in the emergency room and fluids. She is placed on Keflex for 10 days. Close follow-up with primary care provider next couple days for re-evaluation. For any worsening symptoms return to the emergency room. <Cindy Villalba, - Last Filed: 06/08/18 07:25> Lab Data Lab Results 06/05/18 06/05/18 06/05/18 Range/Units 12:38 13:30 13:30 WBC 6.3 (4.5-11.0) X10^3/uL RBC 4.10 (4.0-5.2) X10^6/uL Hgb 12.1 (12.0-16.0) g/dL Hct 34.6 L (36-46) % MCV 84.5 (80-100) fL MCH 29.6 (26-34) PG MCHC 35.0 (30-36) % RDW 13.6 (11.6-14.8) % Plt Count 200 (150-400) X10^3/uL Neut % (Auto) 70.3 (50-75) % Lymph % (Auto) 20.7 L (25-40) % [place] % (Auto) 7.5 (3-14) % Eos % (Auto) 0.9 L (2-4) % Baso % (Auto) 0.6 (0-2) % Neut # (Auto) 4500 (2915-9240) /uL Sodium (137-145) mmol/L Potassium (3.4-5.1) mmol/L Chloride (98-107) mmol/L Carbon Dioxide (22-32) mmol/L BUN (7-17) mg/dL Creatinine (0.52-1.04) mg/dL Estimated GFR (>60) mL/min BUN/Creatinine Ratio (6-22) Glucose (70-100) mg/dL Lactate (0.7-2.1) mmol/L Calcium (8.4-10.2) mg/dL Total Bilirubin (0.2-1.3) mg/dL AST (14-36) IU/L ALT (9-52) IU/L Alkaline Phosphatase (38-126) U/L Total Protein (6.3-8.2) g/dL Albumin (3.5-5.0) g/dL Globulin (1.7-4.1) g/dL Albumin/Globulin Ratio (1.0-2.8) Procalcitonin < 0.05 (<0.5) ng/mL Urine RBC None seen (0-5/HPF) Urine WBC 5-10/hpf H (0-5/HPF) Ur Squamous Epith Cells 5-10 /hpf H Amorphous Sediment 1+ Urine Bacteria Many (>30) H (None) Urine Mucus 1+ H (Negative) Ur Culture Indicated? Specimen cultured Micro UA Comment Not Reportable 06/05/18 06/05/18 Range/Units 13:30 13:30 WBC (4.5-11.0) X10^3/uL RBC (4.0-5.2) X10^6/uL Hgb (12.0-16.0) g/dL Hct (36-46) % MCV (80-100) fL MCH (26-34) PG MCHC (30-36) % RDW (11.6-14.8) % Plt Count (150-400) X10^3/uL Neut % (Auto) (50-75) % Lymph % (Auto) (25-40) % [place] % (Auto) (3-14) % Eos % (Auto) (2-4) % Baso % (Auto) (0-2) % Neut # (Auto) (6683-6102) /uL Sodium 143 (137-145) mmol/L Potassium 3.6 (3.4-5.1) mmol/L Chloride 108 H (98-107) mmol/L Carbon Dioxide 22 (22-32) mmol/L BUN 11 (7-17) mg/dL Creatinine 0.60 (0.52-1.04) mg/dL Estimated GFR > 60.0 (>60) mL/min BUN/Creatinine Ratio 18.3 (6-22) Glucose 127 H (70-100) mg/dL Lactate 1.0 (0.7-2.1) mmol/L Calcium 9.1 (8.4-10.2) mg/dL Total Bilirubin 0.5 (0.2-1.3) mg/dL AST 21 (14-36) IU/L ALT 25 (9-52) IU/L Alkaline Phosphatase 46 (38-126) U/L Total Protein 6.4 (6.3-8.2) g/dL Albumin 4.1 (3.5-5.0) g/dL Globulin 2.3 (1.7-4.1) g/dL Albumin/Globulin Ratio 1.8 (1.0-2.8) Procalcitonin (<0.5) ng/mL Urine RBC (0-5/HPF) Urine WBC (0-5/HPF) Ur Squamous Epith Cells Amorphous Sediment Urine Bacteria (None) Urine Mucus (Negative) Ur Culture Indicated? Micro UA Comment Point of Care Testing Test Results Negative Urine Dip Bedside Urine Glucose Negative Bedside Urine Bilirubin - Negative Bedside Urine Ketone - Negative Urine Specific [place] 1.025 Bedside Urine Occult Blood - Negative Bedside Urine pH 6.0 Bedside Urine Protein - Negative Bedside Urine Urobilinogen - Negative Bedside Urine Nitrite - Negative Bedside Urine Leukocytes + 70 Esterase Discharge Plan Departure Patient Disposition: Home Clinical Impression: Pyelonephritis Discharge Date/Time: 06/05/18 15:27 Interventions: ED Discharge Assessment Last Done: 06/05/18 15:26 Instructions: DI for Kidney Infection Activity Restrictions/Additional Instructions: Blood laboratory results today were unremarkable. Urinalysis indicates urinary tract infection. Urine given IV antibiotics in the emergency room. Your placed on a different antibiotic called Keflex use as directed. Follow up with her primary care provider in the next couple days for re-evaluation. Plenty of fluids and rest. [id number] Tylenol or Motrin as needed for discomfort and fever. For any worsening symptoms return to the emergency room. Prescriptions: New ondansetron 4 mg tablet,disintegrating 4 mg PO BID-TID PRN (Reason: nausea and vomiting) Qty: 10 RF: 0 No Action omeprazole 20 MG capsule,delayed release(DR/EC) 20 mg PO BID Qty: 0 RF: 0 hydroxychloroquine [Plaquenil] 200 MG tablet 200 mg PO BIDCC Qty: 0 RF: 0 epinephrine [EpiPen 2-Chris] 0.3 mg/0.3 mL auto-injector 1 dose IM PRN PRN (Reason: Allergic Reaction) RF: 0 melatonin 5 mg Tablet 5 mg PO BEDTIME PRN (Reason: Sleep) RF: 0 belimumab [Benlysta] 200 mg/mL Syringe 960 mg SUBCUT Q4W RF: 0 Vitamin B-2 200 mg 200 mg PO BID RF: 0 albuterol sulfate 2.5 mg /3 mL (0.083 %) solution for nebulization 2.5 mg INHALATION Q4-6H PRN (Reason: wheezing ) Qty: 75 RF: 0 Referrals: [facility] [Provider Group] Denise Patel [Primary Care Provider] - <Cindy Villalba DO - Last Filed: 06/08/18 07:25> Cosign ED Attending Cosignature Attestation: I was immediately available in the department for consultation. This documentation has been reviewed and I agree with assessment and plan. Supervised by Cindy Villalba DO
[2018-06-05 12:52] LABS: Amorphous Sediment Urine 1+; Bacteria Urine Many (>30); Culture Indicated Urine Specimen Cultured; Mucus Urine 1+ (Negative); Squamous Epithelial Cell Urine 5-10 /HPF; WBC Urine 5-10/HPF (0-5/HPF)
[2018-06-05] MEDS: SODIUM CHLORIDE 0.9% 1,000 ML 1000 ML IV (13:44)
[2018-06-05] MEDS: CEFTRIAXONE 1 GM/50 ML FROZ.PIGGY IV (13:44)
[2018-06-05 13:47] LABS: Add Manual Diff / Slide Review NO; Basophils Percent Auto 0.6 % (0-2); Eosinophils Percent Auto 0.9 % (2-4); Hematocrit 34.6 % (36-46); Hemoglobin 12.1 g/dL (12.0-16.0); Lymphocytes Percent Auto 20.7 % (25-40); Mean Corpuscular Hemoglobin 29.6 PG (26-34); Mean Corpuscular Volume 84.5 fL (80-100); Monocytes Percent Auto 7.5 % (3-14); Neutrophils Absolute Auto 4500 /uL (1500-7000); Neutrophils Percent Auto 70.3 % (50-75); Platelet Count 200 X10^3/uL (150-400); Red Cell Distribution Width 13.6 % (11.6-14.8); White Blood Cell Count 6.3 X10^3/uL (4.5-11.0)
[2018-06-05 14:02] LABS: Alanine Aminotransferase 25 IU/L (9-52); Albumin 4.1 g/dL (3.5-5.0); Albumin Globulin Ratio 1.8 (1.0-2.8); Alkaline Phosphatase 46 U/L (38-126); Aspartate Aminotransferase 21 IU/L (14-36); BUN Creatinine Ratio 18.3 (6-22); Bilirubin Total 0.5 mg/dL (0.2-1.3); Blood Urea Nitrogen 11 mg/dL (7-17); Calcium 9.1 mg/dL (8.4-10.2); Carbon Dioxide 22 mmol/L (22-32); Chloride 108 mmol/L (98-107); Estimated Glomerular Filt Rate > 60.0 mL/min (>60); Globulin 2.3 g/dL (1.7-4.1); Glucose 127 mg/dL (70-100); HEMOLYSIS < 15 (0-50); Potassium 3.6 mmol/L (3.4-5.1); Sodium 143 mmol/L (137-145); Total Protein 6.4 g/dL (6.3-8.2)
[2018-06-05 14:31] LABS: Procalcitonin < 0.05 ng/mL (<0.5)
[2018-06-05 14:44] VITALS: BP 109/59; PULSE 76; RESP 18; O2SAT 100
[2018-06-05 14:56] VITALS: TEMP 37
== END 2018-06-05 15:27 | disposition home or self-care (01) ==
PROVIDERS: Emergency Provider Nurse Practitioner Family; PCP Physician Assistant Medical
DX: N12 Tubulo-interstitial nephritis, not specified as acute or chronic (principal)
CPT/HCPCS: 36415; 36591; 80053; 81003; 81015; 81025; 83605; 84145; 85025; 87040; 87086; 96361; 96365; 99283; 99284

== ENCOUNTER 2018-06-07 12:50 | Observation (INO) | payer OTHER, SELFPAY ==
[2018-06-07 12:58] VITALS: BP 134/89; PULSE 114; RESP 18; TEMP 36.8; O2SAT 100; BMI 40.8
--- NOTE | 2018-06-07 13:55 | ED.FEMALEGU ---
HPI - Female Genitourinary <TC Cornelius - Last Filed: 06/07/18 22:08> General Chief complaint: Urogenital-Female Stated complaint: SEVERE BACK PAIN, ABDOMINAL PAIN, CHILLS Time Seen by Provider: 06/07/18 12:55 Source: patient Mode of arrival: ambulatory Limitations: no limitations History of Present Illness HPI Narrative: 32-year-old female with history of asthma is a nonsmoker here for complete continued left flank pain and bladder discomfort over the past several days. She was seen here in the emergency room 2 days ago by myself and was placed on Keflex to treat pyelonephritis. She reports that 10 days prior to that she was seen and organ was treated for pyelonephritis with ciprofloxacin. She reports that she completed the ciprofloxacin and which helped her symptoms however the symptoms returned a couple days prior to being seen here in the emergency room the 1st time. She denies any fevers over she does states she has chills. Positive p.o. intake no nausea vomiting. Urine culture was contaminated no sensitivity was obtained. She denies any other concerns or complaints at this time. MD Complaint: other Related Data Home Medications Medication Instructions Recorded Confirmed hydroxychloroquine [Plaquenil] 200 mg PO BIDCC #0 02/28/17 06/07/18 omeprazole 20 mg PO BID #0 02/28/17 06/07/18 Vitamin B-2 200 mg PO BID 03/20/18 06/07/18 belimumab [Benlysta] 960 mg SUBCUT Q4W 03/20/18 06/07/18 epinephrine 1 dose IM PRN PRN 03/20/18 06/07/18 melatonin 5 mg PO BEDTIME PRN 03/20/18 06/07/18 Previous Rx's Medication Instructions Recorded albuterol sulfate 2.5 mg INHALATION Q4-6H PRN #75 ml 03/20/18 ondansetron 4 mg PO BID-TID PRN #10 tab 06/05/18 doxycycline hyclate 100 mg PO BID 7 Days #14 tab 06/08/18 fluconazole [Diflucan] 200 mg PO DAILY #5 tab 06/08/18 levofloxacin [Levaquin] 500 mg PO DAILY 7 Days #7 tab 06/08/18 ondansetron HCl [Zofran] 4 mg PO Q8-12H PRN #30 tab 06/08/18 Allergies Allergy/AdvReac Type Severity Reaction Status Date / Time amoxicillin [AMOXICILLIN] Allergy Unknown Verified 06/07/18 13:10 betamethasone [BETAMETHASONE] Allergy Unknown Anaphylaxis Verified 06/07/18 13:10 clarithromycin [From BIAXIN] Allergy Unknown Verified 06/07/18 13:10 coconut [COCONUT] Allergy Unknown Verified 06/07/18 13:10 Iodinated Contrast- Oral and Allergy Unknown Anaphylaxis Verified 06/07/18 13:10 IV Dye [IODINATED CONTRAST- ORAL AND IV DYE] peanut [PEANUT] Allergy Unknown Verified 06/07/18 13:10 Penicillins [PENICILLINS] Allergy Unknown Verified 06/07/18 13:10 pineapple [PINEAPPLE] Allergy Unknown Verified 06/07/18 13:10 shellfish derived Allergy Unknown Verified 06/07/18 13:10 [SHELLFISH DERIVED] diphenhydramine AdvReac Verified 06/07/18 13:10 [From Benadryl] Review of Systems <TC Cornelius - Last Filed: 06/07/18 22:08> Constitutional Reports chills, Denies fever(s), Denies lethargy and Denies weakness Eyes Denies change in vision, Denies eye discharge, Denies irritation and Denies loss of vision ENT Ears, Nose, Mouth, and Throat: Denies change in voice, Denies neck pain and Denies sore throat Cardiovascular Denies chest pain, Denies irregular heart rhythm, Denies lightheadedness, Denies palpitations, Denies dyspnea, Denies dyspnea on exertion and Denies orthopnea Respiratory Denies cough, Denies dyspnea, Denies dyspnea on exertion and Denies wheezing Gastrointestinal Gastrointestinal: Denies abdominal pain, Denies change in bowel habits, Denies diarrhea, Denies nausea and Denies vomiting Genitourinary Reports flank pain Comments: Bladder discomfort Musculoskeletal Denies neck pain Integumentary/Breasts Denies pruritus, Denies erythema, Denies rash and Denies wounds Neurologic Denies confusion, Denies loss of vision and Denies weakness Psychiatric Denies anxiety, Denies confusion, Denies depression, Denies homicidal ideation and Denies suicidal ideation Endocrine Denies palpitations Hematologic/Lymphatic Denies easy bruising Allergic/Immunologic Denies wheezing Exam <TC Cornelius - Last Filed: 06/07/18 22:08> Initial Vital Signs Initial Vital Signs: Vital Signs Temperature 98.2 F 06/07/18 12:58 Pulse Rate 114 H 06/07/18 12:58 Respiratory Rate 18 06/07/18 12:58 Blood Pressure 134/89 06/07/18 12:58 Pulse Oximetry 100 06/07/18 12:58 Const General: cooperative and well developed Nutritional Appearance: well nourished Orientation: alert, awake, oriented x3 and not confused [facility] Mouth: oral mucosae normal and mucous membranes abnormal Resp Effort & Inspection: normal respiratory effort, able to speak in complete sentences, no respiratory distress and no use of accessory muscles Auscultation: clear to auscultation bilaterally, no rales, no rhonchi and no wheezes Cardio Rate: regular rate Rhythm: regular rhythm Heart Sounds: no click, no gallops, no murmurs and no rubs Pulses: normal peripheral pulses GI Inspection: non-distended Palpation: soft, no hepatosplenomegaly, No guarding, No pulsatile mass and tender Auscultation: normal bowel sounds Other: Tenderness suprapubic region General: CVA tenderness (Left CVA tenderness) Skin General: no rashes or lesions noted, No jaundice and No petechiae Neuro General: alert, oriented x3, gait normal and no focal motor deficits Speech: speech normal <Bernardo Watkins DO - Last Filed: 06/10/18 08:35> Initial Vital Signs Initial Vital Signs: Vital Signs Temperature 98.2 F 06/07/18 12:58 Pulse Rate 114 H 06/07/18 12:58 Respiratory Rate 18 06/07/18 12:58 Blood Pressure 134/89 06/07/18 12:58 Pulse Oximetry 100 06/07/18 12:58 Course <TC Cornelius - Last Filed: 06/07/18 22:08> Orders Ordered: Discontinued Medications Acetaminophen (Tylenol) 650 mg PO Q6HR PRN PRN Reason: As Needed for Fever/Mild Pain Acetaminophen/Butalbital/Caffeine (Fioricet) 1 each PO Q4HR PRN PRN Reason: Headache Last Admin: 06/08/18 10:00 Dose: 1 each Acetaminophen/Codeine Phosphate (Tylenol #3) 1 tab PO Q4HR PRN PRN Reason: Pain, Moderate (4-6) Bisacodyl (Dulcolax) 10 mg TN DAILY PRN PRN Reason: Constipation Enoxaparin Sodium (Lovenox) 40 mg SUBCUT DAILY [facility] Sodium Chloride (Normal Saline 0.9%) 1,000 mls @ 150 mls/hr IV CONT SAADIA Last Infusion: 06/07/18 16:37 Dose: 150 mls/hr Admin: 06/07/18 15:56 Dose: 150 mls/hr Cefepime HCl 1 gm/ Sodium (Chloride) 100 mls @ 200 mls/hr IV NOW ONE Stop: 06/07/18 16:34 Last Admin: 06/07/18 17:11 Dose: 200 mls/hr Fluconazole (Diflucan) 200 mg in 100 mls @ 100 mls/hr IV Q24H SAADIA Last Infusion: 06/08/18 09:25 Dose: 0 mls/hr Admin: 06/07/18 17:52 Dose: 100 mls/hr Sodium Chloride (Normal Saline 0.9%) 1,000 mls @ 150 mls/hr IV CONT [facility] Last Admin: 06/08/18 09:18 Dose: 150 mls/hr Infusion: 06/08/18 09:18 Dose: 150 mls/hr Admin: 06/08/18 02:56 Dose: 150 mls/hr Infusion: 06/08/18 02:00 Dose: 150 mls/hr Admin: 06/07/18 19:19 Dose: 150 mls/hr Ketorolac Tromethamine (Toradol) 15 mg IV Q8H PRN PRN Reason: Headache Stop: 06/13/18 08:36 Last Admin: 06/08/18 09:11 Dose: 15 mg Morphine Sulfate (Morphine) 2 mg IV Q4HR PRN PRN Reason: Pain, Moderate (4-6) Last Admin: 06/07/18 17:52 Dose: 2 mg Ondansetron HCl (Zofran) 4 mg IV Q8HR PRN PRN Reason: Nausea And Vomiting Last Admin: 06/07/18 17:33 Dose: 4 mg Ondansetron HCl (Zofran) 4 mg IV Q4HR PRN PRN Reason: Nausea And Vomiting Last Admin: 06/08/18 07:34 Dose: 4 mg Admin: 06/07/18 21:54 Dose: 4 mg Oxycodone HCl (Percolone) 5 mg PO Q6HR PRN PRN Reason: Pain, Moderate (4-6) Promethazine HCl (Phenadoz) 12.5 mg TN Q6HR PRN PRN Reason: Nausea And Vomiting Sodium Biphosphate/Sodium Phosphate (Fleet Enema) 1 each TN PRN PRN PRN Reason: Constipation Sumatriptan Succinate (Imitrex) 6 mg SUBCUT Q8H PRN PRN Reason: Headache Vital Signs - 8 hr 06/07/18 17:18 06/07/18 20:08 Temperature 99.2 F 98.5 F Pulse Rate 85 81 Respiratory Rate 18 15 Blood Pressure 124/71 123/55 L Pulse Oximetry 98 99 <Bernardo Watkins DO - Last Filed: 06/10/18 08:35> Orders Ordered: Discontinued Medications Acetaminophen (Tylenol) 650 mg PO Q6HR PRN PRN Reason: As Needed for Fever/Mild Pain Acetaminophen/Butalbital/Caffeine (Fioricet) 1 each PO Q4HR PRN PRN Reason: Headache Last Admin: 06/08/18 10:00 Dose: 1 each Acetaminophen/Codeine Phosphate (Tylenol #3) 1 tab PO Q4HR PRN PRN Reason: Pain, Moderate (4-6) Bisacodyl (Dulcolax) 10 mg TN DAILY PRN PRN Reason: Constipation Enoxaparin Sodium (Lovenox) 40 mg SUBCUT DAILY [facility] Sodium Chloride (Normal Saline 0.9%) 1,000 mls @ 150 mls/hr IV CONT SAADIA Last Infusion: 06/07/18 16:37 Dose: 150 mls/hr Admin: 06/07/18 15:56 Dose: 150 mls/hr Cefepime HCl 1 gm/ Sodium (Chloride) 100 mls @ 200 mls/hr IV NOW ONE Stop: 06/07/18 16:34 Last Admin: 06/07/18 17:11 Dose: 200 mls/hr Fluconazole (Diflucan) 200 mg in 100 mls @ 100 mls/hr IV Q24H [facility]ADIA Last Infusion: 06/08/18 09:25 Dose: 0 mls/hr Admin: 06/07/18 17:52 Dose: 100 mls/hr Sodium Chloride (Normal Saline 0.9%) 1,000 mls @ 150 mls/hr IV CONT SAADIA Last Admin: 06/08/18 09:18 Dose: 150 mls/hr Infusion: 06/08/18 09:18 Dose: 150 mls/hr Admin: 06/08/18 02:56 Dose: 150 mls/hr Infusion: 06/08/18 02:00 Dose: 150 mls/hr Admin: 06/07/18 19:19 Dose: 150 mls/hr Ketorolac Tromethamine (Toradol) 15 mg IV Q8H PRN PRN Reason: Headache Stop: 06/13/18 08:36 Last Admin: 06/08/18 09:11 Dose: 15 mg Morphine Sulfate (Morphine) 2 mg IV Q4HR PRN PRN Reason: Pain, Moderate (4-6) Last Admin: 06/07/18 17:52 Dose: 2 mg Ondansetron HCl (Zofran) 4 mg IV Q8HR PRN PRN Reason: Nausea And Vomiting Last Admin: 06/07/18 17:33 Dose: 4 mg Ondansetron HCl (Zofran) 4 mg IV Q4HR PRN PRN Reason: Nausea And Vomiting Last Admin: 06/08/18 07:34 Dose: 4 mg Admin: 06/07/18 21:54 Dose: 4 mg Oxycodone HCl (Percolone) 5 mg PO Q6HR PRN PRN Reason: Pain, Moderate (4-6) Promethazine HCl (Phenadoz) 12.5 mg TN Q6HR PRN PRN Reason: Nausea And Vomiting Sodium Biphosphate/Sodium Phosphate (Fleet Enema) 1 each TN PRN PRN PRN Reason: Constipation Sumatriptan Succinate (Imitrex) 6 mg SUBCUT Q8H PRN PRN Reason: Headache Vital Signs - 8 hr 06/07/18 17:18 06/07/18 20:08 Temperature 99.2 F 98.5 F Pulse Rate 85 81 Respiratory Rate 18 15 Blood Pressure 124/71 123/55 L Pulse Oximetry 98 99 MDM - Female Genitourinary <TC Cornelius - Last Filed: 06/07/18 22:08> Lab Data Result diagrams: 06/08/18 05:50 06/08/18 05:50 Lab Results 06/07/18 06/07/18 06/07/18 Range/Units 13:24 14:25 14:25 WBC (4.5-11.0) X10^3/uL RBC (4.0-5.2) X10^6/uL Hgb (12.0-16.0) g/dL Hct (36-46) % MCV (80-100) fL MCH (26-34) PG MCHC (30-36) % RDW (11.6-14.8) % Plt Count (150-400) X10^3/uL Neut % (Auto) (50-75) % Lymph % (Auto) (25-40) % [place] % (Auto) (3-14) % Eos % (Auto) (2-4) % Baso % (Auto) (0-2) % Neut # (Auto) (3422-4689) /uL Sodium (137-145) mmol/L Potassium (3.4-5.1) mmol/L Chloride (98-107) mmol/L Carbon Dioxide (22-32) mmol/L BUN (7-17) mg/dL Creatinine (0.52-1.04) mg/dL Estimated GFR (>60) mL/min BUN/Creatinine Ratio (6-22) Glucose (70-100) mg/dL Lactate 0.6 L (0.7-2.1) mmol/L Calcium (8.4-10.2) mg/dL Total Bilirubin (0.2-1.3) mg/dL AST (14-36) IU/L ALT (9-52) IU/L Alkaline Phosphatase (38-126) U/L Total Protein (6.3-8.2) g/dL Albumin (3.5-5.0) g/dL Globulin (1.7-4.1) g/dL Albumin/Globulin Ratio (1.0-2.8) Lipase (23-300) U/L Procalcitonin < 0.05 (<0.5) ng/mL Urine RBC 0-1/hpf (0-5/HPF) Urine WBC 5-10/hpf H (0-5/HPF) Ur Squamous Epith Cells 5-10 /hpf H Amorphous Sediment 1+ Urine Bacteria Moderate (10-30) H (None) Urine Yeast 1-5/hpf H (None) Ur Culture Indicated? Cult not indicated Micro UA Comment Not Reportable 06/07/18 06/07/18 06/08/18 Range/Units 14:25 14:25 05:50 WBC 8.0 6.7 (4.5-11.0) X10^3/uL RBC 4.21 3.66 L (4.0-5.2) X10^6/uL Hgb 12.1 10.8 L (12.0-16.0) g/dL Hct 35.8 L 31.2 L (36-46) % MCV 85.0 85.4 (80-100) fL MCH 28.8 29.5 (26-34) PG MCHC 33.8 34.5 (30-36) % RDW 13.4 13.4 (11.6-14.8) % Plt Count 192 170 (150-400) X10^3/uL Neut % (Auto) 77.5 H 64.1 (50-75) % Lymph % (Auto) 15.5 L 25.8 (25-40) % [place] % (Auto) 6.0 8.2 (3-14) % Eos % (Auto) 0.5 L 1.3 L (2-4) % Baso % (Auto) 0.5 0.6 (0-2) % Neut # (Auto) 6200 4300 (8040-2864) /uL Sodium 138 (137-145) mmol/L Potassium 3.9 (3.4-5.1) mmol/L Chloride 107 (98-107) mmol/L Carbon Dioxide 21 L (22-32) mmol/L BUN 10 (7-17) mg/dL Creatinine 0.70 (0.52-1.04) mg/dL Estimated GFR > 60.0 (>60) mL/min BUN/Creatinine Ratio 14.3 (6-22) Glucose 92 (70-100) mg/dL Lactate (0.7-2.1) mmol/L Calcium 9.0 (8.4-10.2) mg/dL Total Bilirubin 0.5 (0.2-1.3) mg/dL AST 20 (14-36) IU/L ALT 27 (9-52) IU/L Alkaline Phosphatase 49 (38-126) U/L Total Protein 6.7 (6.3-8.2) g/dL Albumin 4.2 (3.5-5.0) g/dL Globulin 2.5 (1.7-4.1) g/dL Albumin/Globulin Ratio 1.7 (1.0-2.8) Lipase 72 (23-300) U/L Procalcitonin (<0.5) ng/mL Urine RBC (0-5/HPF) Urine WBC (0-5/HPF) Ur Squamous Epith Cells Amorphous Sediment Urine Bacteria (None) Urine Yeast (None) Ur Culture Indicated? Micro UA Comment 06/08/18 Range/Units 05:50 WBC (4.5-11.0) X10^3/uL RBC (4.0-5.2) X10^6/uL Hgb (12.0-16.0) g/dL Hct (36-46) % MCV (80-100) fL MCH (26-34) PG MCHC (30-36) % RDW (11.6-14.8) % Plt Count (150-400) X10^3/uL Neut % (Auto) (50-75) % Lymph % (Auto) (25-40) % [place] % (Auto) (3-14) % Eos % (Auto) (2-4) % Baso % (Auto) (0-2) % Neut # (Auto) (6862-6466) /uL Sodium 136 L (137-145) mmol/L Potassium 4.0 (3.4-5.1) mmol/L Chloride 109 H (98-107) mmol/L Carbon Dioxide 22 (22-32) mmol/L BUN 10 (7-17) mg/dL Creatinine 0.60 (0.52-1.04) mg/dL Estimated GFR > 60.0 (>60) mL/min BUN/Creatinine Ratio 16.7 (6-22) Glucose 86 (70-100) mg/dL Lactate (0.7-2.1) mmol/L Calcium 8.3 L (8.4-10.2) mg/dL Total Bilirubin 0.5 (0.2-1.3) mg/dL AST 16 (14-36) IU/L ALT 23 (9-52) IU/L Alkaline Phosphatase 38 (38-126) U/L Total Protein 5.7 L (6.3-8.2) g/dL Albumin 3.3 L (3.5-5.0) g/dL Globulin 2.4 (1.7-4.1) g/dL Albumin/Globulin Ratio 1.4 (1.0-2.8) Lipase (23-300) U/L Procalcitonin (<0.5) ng/mL Urine RBC (0-5/HPF) Urine WBC (0-5/HPF) Ur Squamous Epith Cells Amorphous Sediment Urine Bacteria (None) Urine Yeast (None) Ur Culture Indicated? Micro UA Comment Point of Care Testing Test Results Negative Urine Dip Bedside Urine Glucose Negative Bedside Urine Bilirubin - Negative Bedside Urine Ketone - Negative Urine Specific [place] 1.015 Bedside Urine Occult Blood - Negative Bedside Urine pH 6.0 Bedside Urine Protein - Negative Bedside Urine Urobilinogen - Negative Bedside Urine Nitrite - Negative Bedside Urine Leukocytes +++ 500 Esterase MDM Narrative Medical decision making narrative: CBC was obtained was unremarkable. Chemistry panel along with procalcitonin and lactate were obtained were unremarkable. Urinalysis indicates positive leuko esterase and WBCs, KUB CT was obtained to rule out complications and was negative for any acute findings. Due to failure of a p.o. antibiotics she is admitted for IV antibiotics. Discussed case with hospitalist Dr. Maza who accepted patient. She is started on cefepime. <Bernardo Watkins, DO - Last Filed: 06/10/18 08:35> Lab Data Lab Results 06/07/18 06/07/18 06/07/18 Range/Units 13:24 14:25 14:25 WBC (4.5-11.0) X10^3/uL RBC (4.0-5.2) X10^6/uL Hgb (12.0-16.0) g/dL Hct (36-46) % MCV (80-100) fL MCH (26-34) PG MCHC (30-36) % RDW (11.6-14.8) % Plt Count (150-400) X10^3/uL Neut % (Auto) (50-75) % Lymph % (Auto) (25-40) % [place] % (Auto) (3-14) % Eos % (Auto) (2-4) % Baso % (Auto) (0-2) % Neut # (Auto) (4991-6963) /uL Sodium (137-145) mmol/L Potassium (3.4-5.1) mmol/L Chloride (98-107) mmol/L Carbon Dioxide (22-32) mmol/L BUN (7-17) mg/dL Creatinine (0.52-1.04) mg/dL Estimated GFR (>60) mL/min BUN/Creatinine Ratio (6-22) Glucose (70-100) mg/dL Lactate 0.6 L (0.7-2.1) mmol/L Calcium (8.4-10.2) mg/dL Total Bilirubin (0.2-1.3) mg/dL AST (14-36) IU/L ALT (9-52) IU/L Alkaline Phosphatase (38-126) U/L Total Protein (6.3-8.2) g/dL Albumin (3.5-5.0) g/dL Globulin (1.7-4.1) g/dL Albumin/Globulin Ratio (1.0-2.8) Lipase (23-300) U/L Procalcitonin < 0.05 (<0.5) ng/mL Urine RBC 0-1/hpf (0-5/HPF) Urine WBC 5-10/hpf H (0-5/HPF) Ur Squamous Epith Cells 5-10 /hpf H Amorphous Sediment 1+ Urine Bacteria Moderate (10-30) H (None) Urine Yeast 1-5/hpf H (None) Ur Culture Indicated? Cult not indicated Micro UA Comment Not Reportable 06/07/18 06/07/18 06/08/18 Range/Units 14:25 14:25 05:50 WBC 8.0 6.7 (4.5-11.0) X10^3/uL RBC 4.21 3.66 L (4.0-5.2) X10^6/uL Hgb 12.1 10.8 L (12.0-16.0) g/dL Hct 35.8 L 31.2 L (36-46) % MCV 85.0 85.4 (80-100) fL MCH 28.8 29.5 (26-34) PG MCHC 33.8 34.5 (30-36) % RDW 13.4 13.4 (11.6-14.8) % Plt Count 192 170 (150-400) X10^3/uL Neut % (Auto) 77.5 H 64.1 (50-75) % Lymph % (Auto) 15.5 L 25.8 (25-40) % [place] % (Auto) 6.0 8.2 (3-14) % Eos % (Auto) 0.5 L 1.3 L (2-4) % Baso % (Auto) 0.5 0.6 (0-2) % Neut # (Auto) 6200 4300 (3367-6656) /uL Sodium 138 (137-145) mmol/L Potassium 3.9 (3.4-5.1) mmol/L Chloride 107 (98-107) mmol/L Carbon Dioxide 21 L (22-32) mmol/L BUN 10 (7-17) mg/dL Creatinine 0.70 (0.52-1.04) mg/dL Estimated GFR > 60.0 (>60) mL/min BUN/Creatinine Ratio 14.3 (6-22) Glucose 92 (70-100) mg/dL Lactate (0.7-2.1) mmol/L Calcium 9.0 (8.4-10.2) mg/dL Total Bilirubin 0.5 (0.2-1.3) mg/dL AST 20 (14-36) IU/L ALT 27 (9-52) IU/L Alkaline Phosphatase 49 (38-126) U/L Total Protein 6.7 (6.3-8.2) g/dL Albumin 4.2 (3.5-5.0) g/dL Globulin 2.5 (1.7-4.1) g/dL Albumin/Globulin Ratio 1.7 (1.0-2.8) Lipase 72 (23-300) U/L Procalcitonin (<0.5) ng/mL Urine RBC (0-5/HPF) Urine WBC (0-5/HPF) Ur Squamous Epith Cells Amorphous Sediment Urine Bacteria (None) Urine Yeast (None) Ur Culture Indicated? Micro UA Comment 06/08/18 Range/Units 05:50 WBC (4.5-11.0) X10^3/uL RBC (4.0-5.2) X10^6/uL Hgb (12.0-16.0) g/dL Hct (36-46) % MCV (80-100) fL MCH (26-34) PG MCHC (30-36) % RDW (11.6-14.8) % Plt Count (150-400) X10^3/uL Neut % (Auto) (50-75) % Lymph % (Auto) (25-40) % [place] % (Auto) (3-14) % Eos % (Auto) (2-4) % Baso % (Auto) (0-2) % Neut # (Auto) (4513-0808) /uL Sodium 136 L (137-145) mmol/L Potassium 4.0 (3.4-5.1) mmol/L Chloride 109 H (98-107) mmol/L Carbon Dioxide 22 (22-32) mmol/L BUN 10 (7-17) mg/dL Creatinine 0.60 (0.52-1.04) mg/dL Estimated GFR > 60.0 (>60) mL/min BUN/Creatinine Ratio 16.7 (6-22) Glucose 86 (70-100) mg/dL Lactate (0.7-2.1) mmol/L Calcium 8.3 L (8.4-10.2) mg/dL Total Bilirubin 0.5 (0.2-1.3) mg/dL AST 16 (14-36) IU/L ALT 23 (9-52) IU/L Alkaline Phosphatase 38 (38-126) U/L Total Protein 5.7 L (6.3-8.2) g/dL Albumin 3.3 L (3.5-5.0) g/dL Globulin 2.4 (1.7-4.1) g/dL Albumin/Globulin Ratio 1.4 (1.0-2.8) Lipase (23-300) U/L Procalcitonin (<0.5) ng/mL Urine RBC (0-5/HPF) Urine WBC (0-5/HPF) Ur Squamous Epith Cells Amorphous Sediment Urine Bacteria (None) Urine Yeast (None) Ur Culture Indicated? Micro UA Comment Point of Care Testing Test Results Negative Urine Dip Bedside Urine Glucose Negative Bedside Urine Bilirubin - Negative Bedside Urine Ketone - Negative Urine Specific [place] 1.015 Bedside Urine Occult Blood - Negative Bedside Urine pH 6.0 Bedside Urine Protein - Negative Bedside Urine Urobilinogen - Negative Bedside Urine Nitrite - Negative Bedside Urine Leukocytes +++ 500 Esterase Discharge Plan Departure Patient Disposition: Admitted As Inpatient Clinical Impression: Pyelonephritis Discharge Date/Time: 06/07/18 16:40 Interventions: ED Discharge Assessment Last Done: 06/07/18 16:38 Admit Date/Time: 06/07/18 16:33 Admit Provider: Sanjay Rand <Bernardo Watkins DO - Last Filed: 06/10/18 08:35> Cosign ED Attending Cory Attestation: I was available for consultation during this patient's emergency department encounter
[2018-06-07 14:02] LABS: Amorphous Sediment Urine 1+; Bacteria Urine Moderate (10-30); Culture Indicated Urine Cult Not Indicated; RBC Urine 0-1/HPF (0-5/HPF); Squamous Epithelial Cell Urine 5-10 /HPF; WBC Urine 5-10/HPF (0-5/HPF)
--- NOTE | 2018-06-07 14:04 | DI.CT.S_ITS ---
PROCEDURE: CT KIDNEY URETER BLADDER (KUB) INDICATIONS: Left flank pain TECHNIQUE: Noncontrast 5 mm thick sections acquired from the diaphragms to the symphysis. 5 mm thick coronal and sagittal reformats were then performed. For radiation dose reduction, the following was used: automated exposure control, adjustment of mA and/or kV according to patient size. COMPARISON: None. FINDINGS: Image quality: Excellent. Lung bases: Lung bases are clear. Heart size is normal. Urinary system: Both kidneys are normal in size. No kidney stones. No hydronephrosis or perinephric fat stranding. Both ureters appear non-dilated throughout their expected courses. Bladder wall thickness is normal; no calcified bladder stones. Other solid organs: Liver is normal in size. Gallbladder is surgically absent. Pancreas is normal in contours. Spleen is normal in size. No adrenal nodules. Peritoneum and bowel: Unenhanced bowel loops demonstrate normal wall thickness and caliber. No free fluid or air. A normal appendix is best seen on axial image 60 of series 2. Nodes and vessels: No retroperitoneal or mesenteric adenopathy by size criteria. Aorta and inferior vena cava are normal in caliber. Abdominal wall: No ventral hernias. Pelvis: No free pelvic fluid. No inguinal hernias or adenopathy. Multiple small right adnexal follicles/cysts are identified. Bones: No suspicious bony lesions. No vertebral body compression fractures. IMPRESSION: No nephrolithiasis or hydronephrosis identified. No CT evidence of an acute infectious or inflammatory process within the imaged abdomen and pelvis. Dictated by: Rico Aaron M.D. on 06/07/2018 at 15:50 Approved by: Rico Aaron M.D. on 06/07/2018 at 15:56
--- NOTE | 2018-06-07 14:38 | PC.NURSE ---
Patient ongoign flank pain, chills after second course of abx treatment for kidney infection.
[2018-06-07 14:40] LABS: Add Manual Diff / Slide Review NO; Basophils Percent Auto 0.5 % (0-2); Eosinophils Percent Auto 0.5 % (2-4); Hematocrit 35.8 % (36-46); Hemoglobin 12.1 g/dL (12.0-16.0); Lymphocytes Percent Auto 15.5 % (25-40); Mean Corpuscular HGB Conc 33.8 % (30-36); Mean Corpuscular Hemoglobin 28.8 PG (26-34); Neutrophils Absolute Auto 6200 /uL (1500-7000); Neutrophils Percent Auto 77.5 % (50-75); Platelet Count 192 X10^3/uL (150-400); Red Blood Cell Count 4.21 X10^6/uL (4.0-5.2); Red Cell Distribution Width 13.4 % (11.6-14.8)
[2018-06-07 14:47] LABS: Lactate (Lactic Acid) 0.6 mmol/L (0.7-2.1)
[2018-06-07 14:50] LABS: Alanine Aminotransferase 27 IU/L (9-52); Albumin 4.2 g/dL (3.5-5.0); Albumin Globulin Ratio 1.7 (1.0-2.8); Alkaline Phosphatase 49 U/L (38-126); Aspartate Aminotransferase 20 IU/L (14-36); BUN Creatinine Ratio 14.3 (6-22); Bilirubin Total 0.5 mg/dL (0.2-1.3); Blood Urea Nitrogen 10 mg/dL (7-17); Carbon Dioxide 21 mmol/L (22-32); Chloride 107 mmol/L (98-107); Estimated Glomerular Filt Rate > 60.0 mL/min (>60); Globulin 2.5 g/dL (1.7-4.1); Glucose 92 mg/dL (70-100); HEMOLYSIS < 15 (0-50); Lipase 72 U/L (23-300); Potassium 3.9 mmol/L (3.4-5.1); Sodium 138 mmol/L (137-145); Total Protein 6.7 g/dL (6.3-8.2)
[2018-06-07 15:11] LABS: Procalcitonin < 0.05 ng/mL (<0.5)
[2018-06-07] MEDS: SODIUM CHLORIDE 0.9% 1,000 ML 150 ML IV ×2 (15:56→19:19)
--- NOTE | 2018-06-07 16:47 | ED_ITS ---
HPI - Female Genitourinary <TC Cornelius - Last Filed: 06/07/18 22:08> General Chief complaint: Urogenital-Female Stated complaint: SEVERE BACK PAIN, ABDOMINAL PAIN, CHILLS Time Seen by Provider: 06/07/18 12:55 Source: patient Mode of arrival: ambulatory Limitations: no limitations History of Present Illness HPI Narrative: 32-year-old female with history of asthma is a nonsmoker here for complete continued left flank pain and bladder discomfort over the past several days. She was seen here in the emergency room 2 days ago by myself and was placed on Keflex to treat pyelonephritis. She reports that 10 days prior to that she was seen and organ was treated for pyelonephritis with ciprofloxacin. She reports that she completed the ciprofloxacin and which helped her symptoms however the symptoms returned a couple days prior to being seen here in the emergency room the 1st time. She denies any fevers over she does states she has chills. Positive p.o. intake no nausea vomiting. Urine culture was contaminated no sensitivity was obtained. She denies any other concerns or complaints at this time. MD Complaint: other Related Data Home Medications Medication Instructions Recorded Confirmed hydroxychloroquine [Plaquenil] 200 mg PO BIDCC #0 02/28/17 06/07/18 omeprazole 20 mg PO BID #0 02/28/17 06/07/18 Vitamin B-2 200 mg PO BID 03/20/18 06/07/18 belimumab [Benlysta] 960 mg SUBCUT Q4W 03/20/18 06/07/18 epinephrine 1 dose IM PRN PRN 03/20/18 06/07/18 melatonin 5 mg PO BEDTIME PRN 03/20/18 06/07/18 Previous Rx's Medication Instructions Recorded albuterol sulfate 2.5 mg INHALATION Q4-6H PRN #75 ml 03/20/18 ondansetron 4 mg PO BID-TID PRN #10 tab 06/05/18 doxycycline hyclate 100 mg PO BID 7 Days #14 tab 06/08/18 fluconazole [Diflucan] 200 mg PO DAILY #5 tab 06/08/18 levofloxacin [Levaquin] 500 mg PO DAILY 7 Days #7 tab 06/08/18 ondansetron HCl [Zofran] 4 mg PO Q8-12H PRN #30 tab 06/08/18 Allergies Allergy/AdvReac Type Severity Reaction Status Date / Time amoxicillin [AMOXICILLIN] Allergy Unknown Verified 06/07/18 13:10 betamethasone [BETAMETHASONE] Allergy Unknown Anaphylaxis Verified 06/07/18 13: 10 clarithromycin [From BIAXIN] Allergy Unknown Verified 06/07/18 13:10 coconut [COCONUT] Allergy Unknown Verified 06/07/18 13:10 Iodinated Contrast- Oral and Allergy Unknown Anaphylaxis Verified 06/07/18 13:10 IV Dye [IODINATED CONTRAST- ORAL AND IV DYE] peanut [PEANUT] Allergy Unknown Verified 06/07/18 13:10 Penicillins [PENICILLINS] Allergy Unknown Verified 06/07/18 13:10 pineapple [PINEAPPLE] Allergy Unknown Verified 06/07/18 13:10 shellfish derived Allergy Unknown Verified 06/07/18 13:10 [SHELLFISH DERIVED] diphenhydramine AdvReac Verified 06/07/18 13:10 [From Benadryl] Review of Systems <TC Cornelius - Last Filed: 06/07/18 22:08> Constitutional Reports chills, Denies fever(s), Denies lethargy and Denies weakness Eyes Denies change in vision, Denies eye discharge, Denies irritation and Denies loss of vision ENT Ears, Nose, Mouth, and Throat: Denies change in voice, Denies neck pain and Denies sore throat Cardiovascular Denies chest pain, Denies irregular heart rhythm, Denies lightheadedness, Denies palpitations, Denies dyspnea, Denies dyspnea on exertion and Denies orthopnea Respiratory Denies cough, Denies dyspnea, Denies dyspnea on exertion and Denies wheezing Gastrointestinal Gastrointestinal: Denies abdominal pain, Denies change in bowel habits, Denies diarrhea, Denies nausea and Denies vomiting Genitourinary Reports flank pain Comments: Bladder discomfort Musculoskeletal Denies neck pain Integumentary/Breasts Denies pruritus, Denies erythema, Denies rash and Denies wounds Neurologic Denies confusion, Denies loss of vision and Denies weakness Psychiatric Denies anxiety, Denies confusion, Denies depression, Denies homicidal ideation and Denies suicidal ideation Endocrine Denies palpitations Hematologic/Lymphatic Denies easy bruising Allergic/Immunologic Denies wheezing Exam <TC Cornelius - Last Filed: 06/07/18 22:08> Initial Vital Signs Initial Vital Signs: Vital Signs Temperature 98.2 F 06/07/18 12:58 Pulse Rate 114 H 06/07/18 12:58 Respiratory Rate 18 06/07/18 12:58 Blood Pressure 134/89 06/07/18 12:58 Pulse Oximetry 100 06/07/18 12:58 Const General: cooperative and well developed Nutritional Appearance: well nourished Orientation: alert, awake, oriented x3 and not confused [facility] Mouth: oral mucosae normal and mucous membranes abnormal Resp Effort & Inspection: normal respiratory effort, able to speak in complete sentences, no respiratory distress and no use of accessory muscles Auscultation: clear to auscultation bilaterally, no rales, no rhonchi and no wheezes Cardio Rate: regular rate Rhythm: regular rhythm Heart Sounds: no click, no gallops, no murmurs and no rubs Pulses: normal peripheral pulses GI Inspection: non-distended Palpation: soft, no hepatosplenomegaly, No guarding, No pulsatile mass and tender Auscultation: normal bowel sounds Other: Tenderness suprapubic region General: CVA tenderness (Left CVA tenderness) Skin General: no rashes or lesions noted, No jaundice and No petechiae Neuro General: alert, oriented x3, gait normal and no focal motor deficits Speech: speech normal <Bernardo Watkins DO - Last Filed: 06/10/18 08:35> Initial Vital Signs Initial Vital Signs: Vital Signs Temperature 98.2 F 06/07/18 12:58 Pulse Rate 114 H 06/07/18 12:58 Respiratory Rate 18 06/07/18 12:58 Blood Pressure 134/89 06/07/18 12:58 Pulse Oximetry 100 06/07/18 12:58 Course <TC Cornelius - Last Filed: 06/07/18 22:08> Orders Ordered: Discontinued Medications Acetaminophen (Tylenol) 650 mg PO Q6HR PRN PRN Reason: As Needed for Fever/Mild Pain Acetaminophen/Butalbital/Caffeine (Fioricet) 1 each PO Q4HR PRN PRN Reason: Headache Last Admin: 06/08/18 10:00 Dose: 1 each Acetaminophen/Codeine Phosphate (Tylenol #3) 1 tab PO Q4HR PRN PRN Reason: Pain, Moderate (4-6) Bisacodyl (Dulcolax) 10 mg OK DAILY PRN PRN Reason: Constipation Enoxaparin Sodium (Lovenox) 40 mg SUBCUT DAILY [facility] Sodium Chloride (Normal Saline 0.9%) 1,000 mls @ 150 mls/hr IV CONT SAADIA Last Infusion: 06/07/18 16:37 Dose: 150 mls/hr Admin: 06/07/18 15:56 Dose: 150 mls/hr Cefepime HCl 1 gm/ Sodium (Chloride) 100 mls @ 200 mls/hr IV NOW ONE Stop: 06/07/18 16:34 Last Admin: 06/07/18 17:11 Dose: 200 mls/hr Fluconazole (Diflucan) 200 mg in 100 mls @ 100 mls/hr IV Q24H SAADIA Last Infusion: 06/08/18 09:25 Dose: 0 mls/hr Admin: 06/07/18 17:52 Dose: 100 mls/hr Sodium Chloride (Normal Saline 0.9%) 1,000 mls @ 150 mls/hr IV CONT [facility] Last Admin: 06/08/18 09:18 Dose: 150 mls/hr Infusion: 06/08/18 09:18 Dose: 150 mls/hr Admin: 06/08/18 02:56 Dose: 150 mls/hr Infusion: 06/08/18 02:00 Dose: 150 mls/hr Admin: 06/07/18 19:19 Dose: 150 mls/hr Ketorolac Tromethamine (Toradol) 15 mg IV Q8H PRN PRN Reason: Headache Stop: 06/13/18 08:36 Last Admin: 06/08/18 09:11 Dose: 15 mg Morphine Sulfate (Morphine) 2 mg IV Q4HR PRN PRN Reason: Pain, Moderate (4-6) Last Admin: 06/07/18 17:52 Dose: 2 mg Ondansetron HCl (Zofran) 4 mg IV Q8HR PRN PRN Reason: Nausea And Vomiting Last Admin: 06/07/18 17:33 Dose: 4 mg Ondansetron HCl (Zofran) 4 mg IV Q4HR PRN PRN Reason: Nausea And Vomiting Last Admin: 06/08/18 07:34 Dose: 4 mg Admin: 06/07/18 21:54 Dose: 4 mg Oxycodone HCl (Percolone) 5 mg PO Q6HR PRN PRN Reason: Pain, Moderate (4-6) Promethazine HCl (Phenadoz) 12.5 mg OK Q6HR PRN PRN Reason: Nausea And Vomiting Sodium Biphosphate/Sodium Phosphate (Fleet Enema) 1 each OK PRN PRN PRN Reason: Constipation Sumatriptan Succinate (Imitrex) 6 mg SUBCUT Q8H PRN PRN Reason: Headache Vital Signs - 8 hr 06/07/18 17:18 06/07/18 20:08 Temperature 99.2 F 98.5 F Pulse Rate 85 81 Respiratory Rate 18 15 Blood Pressure 124/71 123/55 L Pulse Oximetry 98 99 <Bernardo Watkins DO - Last Filed: 06/10/18 08:35> Orders Ordered: Discontinued Medications Acetaminophen (Tylenol) 650 mg PO Q6HR PRN PRN Reason: As Needed for Fever/Mild Pain Acetaminophen/Butalbital/Caffeine (Fioricet) 1 each PO Q4HR PRN PRN Reason: Headache Last Admin: 06/08/18 10:00 Dose: 1 each Acetaminophen/Codeine Phosphate (Tylenol #3) 1 tab PO Q4HR PRN PRN Reason: Pain, Moderate (4-6) Bisacodyl (Dulcolax) 10 mg OK DAILY PRN PRN Reason: Constipation Enoxaparin Sodium (Lovenox) 40 mg SUBCUT DAILY [facility] Sodium Chloride (Normal Saline 0.9%) 1,000 mls @ 150 mls/hr IV CONT SAADIA Last Infusion: 06/07/18 16:37 Dose: 150 mls/hr Admin: 06/07/18 15:56 Dose: 150 mls/hr Cefepime HCl 1 gm/ Sodium (Chloride) 100 mls @ 200 mls/hr IV NOW ONE Stop: 06/07/18 16:34 Last Admin: 06/07/18 17:11 Dose: 200 mls/hr Fluconazole (Diflucan) 200 mg in 100 mls @ 100 mls/hr IV Q24H [facility]ADIA Last Infusion: 06/08/18 09:25 Dose: 0 mls/hr Admin: 06/07/18 17:52 Dose: 100 mls/hr Sodium Chloride (Normal Saline 0.9%) 1,000 mls @ 150 mls/hr IV CONT SAADIA Last Admin: 06/08/18 09:18 Dose: 150 mls/hr Infusion: 06/08/18 09:18 Dose: 150 mls/hr Admin: 06/08/18 02:56 Dose: 150 mls/hr Infusion: 06/08/18 02:00 Dose: 150 mls/hr Admin: 06/07/18 19:19 Dose: 150 mls/hr Ketorolac Tromethamine (Toradol) 15 mg IV Q8H PRN PRN Reason: Headache Stop: 06/13/18 08:36 Last Admin: 06/08/18 09:11 Dose: 15 mg Morphine Sulfate (Morphine) 2 mg IV Q4HR PRN PRN Reason: Pain, Moderate (4-6) Last Admin: 06/07/18 17:52 Dose: 2 mg Ondansetron HCl (Zofran) 4 mg IV Q8HR PRN PRN Reason: Nausea And Vomiting Last Admin: 06/07/18 17:33 Dose: 4 mg Ondansetron HCl (Zofran) 4 mg IV Q4HR PRN PRN Reason: Nausea And Vomiting Last Admin: 06/08/18 07:34 Dose: 4 mg Admin: 06/07/18 21:54 Dose: 4 mg Oxycodone HCl (Percolone) 5 mg PO Q6HR PRN PRN Reason: Pain, Moderate (4-6) Promethazine HCl (Phenadoz) 12.5 mg OK Q6HR PRN PRN Reason: Nausea And Vomiting Sodium Biphosphate/Sodium Phosphate (Fleet Enema) 1 each OK PRN PRN PRN Reason: Constipation Sumatriptan Succinate (Imitrex) 6 mg SUBCUT Q8H PRN PRN Reason: Headache Vital Signs - 8 hr 06/07/18 17:18 06/07/18 20:08 Temperature 99.2 F 98.5 F Pulse Rate 85 81 Respiratory Rate 18 15 Blood Pressure 124/71 123/55 L Pulse Oximetry 98 99 MDM - Female Genitourinary <TC Cornelius - Last Filed: 06/07/18 22:08> Lab Data Result diagrams: 06/08/18 05:50 06/08/18 05:50 Lab Results 06/07/18 06/07/18 06/07/18 Range/Units 13:24 14:25 14:25 WBC (4.5-11.0) X10^3/uL RBC (4.0-5.2) X10^6/uL Hgb (12.0-16.0) g/dL Hct (36-46) % MCV (80-100) fL MCH (26-34) PG MCHC (30-36) % RDW (11.6-14.8) % Plt Count (150-400) X10^3/uL Neut % (Auto) (50-75) % Lymph % (Auto) (25-40) % [place] % (Auto) (3-14) % Eos % (Auto) (2-4) % Baso % (Auto) (0-2) % Neut # (Auto) (8853-7056) /uL Sodium (137-145) mmol/L Potassium (3.4-5.1) mmol/L Chloride (98-107) mmol/L Carbon Dioxide (22-32) mmol/L BUN (7-17) mg/dL Creatinine (0.52-1.04) mg/dL Estimated GFR (>60) mL/min BUN/Creatinine Ratio (6-22) Glucose (70-100) mg/dL Lactate 0.6 L (0.7-2.1) mmol/L Calcium (8.4-10.2) mg/dL Total Bilirubin (0.2-1.3) mg/dL AST (14-36) IU/L ALT (9-52) IU/L Alkaline Phosphatase (38-126) U/L Total Protein (6.3-8.2) g/dL Albumin (3.5-5.0) g/dL Globulin (1.7-4.1) g/dL Albumin/Globulin Ratio (1.0-2.8) Lipase (23-300) U/L Procalcitonin < 0.05 (<0.5) ng/mL Urine RBC 0-1/hpf (0-5/HPF) Urine WBC 5-10/hpf H (0-5/HPF) Ur Squamous Epith Cells 5-10 /hpf H Amorphous Sediment 1+ Urine Bacteria Moderate (10-30) H (None) Urine Yeast 1-5/hpf H (None) Ur Culture Indicated? Cult not indicated Micro UA Comment Not Reportable 06/07/18 06/07/18 06/08/18 Range/Units 14:25 14:25 05:50 WBC 8.0 6.7 (4.5-11.0) X10^3/uL RBC 4.21 3.66 L (4.0-5.2) X10^6/uL Hgb 12.1 10.8 L (12.0-16.0) g/dL Hct 35.8 L 31.2 L (36-46) % MCV 85.0 85.4 (80-100) fL MCH 28.8 29.5 (26-34) PG MCHC 33.8 34.5 (30-36) % RDW 13.4 13.4 (11.6-14.8) % Plt Count 192 170 (150-400) X10^3/uL Neut % (Auto) 77.5 H 64.1 (50-75) % Lymph % (Auto) 15.5 L 25.8 (25-40) % [place] % (Auto) 6.0 8.2 (3-14) % Eos % (Auto) 0.5 L 1.3 L (2-4) % Baso % (Auto) 0.5 0.6 (0-2) % Neut # (Auto) 6200 4300 (2824-2158) /uL Sodium 138 (137-145) mmol/L Potassium 3.9 (3.4-5.1) mmol/L Chloride 107 (98-107) mmol/L Carbon Dioxide 21 L (22-32) mmol/L BUN 10 (7-17) mg/dL Creatinine 0.70 (0.52-1.04) mg/dL Estimated GFR > 60.0 (>60) mL/min BUN/Creatinine Ratio 14.3 (6-22) Glucose 92 (70-100) mg/dL Lactate (0.7-2.1) mmol/L Calcium 9.0 (8.4-10.2) mg/dL Total Bilirubin 0.5 (0.2-1.3) mg/dL AST 20 (14-36) IU/L ALT 27 (9-52) IU/L Alkaline Phosphatase 49 (38-126) U/L Total Protein 6.7 (6.3-8.2) g/dL Albumin 4.2 (3.5-5.0) g/dL Globulin 2.5 (1.7-4.1) g/dL Albumin/Globulin Ratio 1.7 (1.0-2.8) Lipase 72 (23-300) U/L Procalcitonin (<0.5) ng/mL Urine RBC (0-5/HPF) Urine WBC (0-5/HPF) Ur Squamous Epith Cells Amorphous Sediment Urine Bacteria (None) Urine Yeast (None) Ur Culture Indicated? Micro UA Comment 06/08/18 Range/Units 05:50 WBC (4.5-11.0) X10^3/uL RBC (4.0-5.2) X10^6/uL Hgb (12.0-16.0) g/dL Hct (36-46) % MCV (80-100) fL MCH (26-34) PG MCHC (30-36) % RDW (11.6-14.8) % Plt Count (150-400) X10^3/uL Neut % (Auto) (50-75) % Lymph % (Auto) (25-40) % [place] % (Auto) (3-14) % Eos % (Auto) (2-4) % Baso % (Auto) (0-2) % Neut # (Auto) (8302-0753) /uL Sodium 136 L (137-145) mmol/L Potassium 4.0 (3.4-5.1) mmol/L Chloride 109 H (98-107) mmol/L Carbon Dioxide 22 (22-32) mmol/L BUN 10 (7-17) mg/dL Creatinine 0.60 (0.52-1.04) mg/dL Estimated GFR > 60.0 (>60) mL/min BUN/Creatinine Ratio 16.7 (6-22) Glucose 86 (70-100) mg/dL Lactate (0.7-2.1) mmol/L Calcium 8.3 L (8.4-10.2) mg/dL Total Bilirubin 0.5 (0.2-1.3) mg/dL AST 16 (14-36) IU/L ALT 23 (9-52) IU/L Alkaline Phosphatase 38 (38-126) U/L Total Protein 5.7 L (6.3-8.2) g/dL Albumin 3.3 L (3.5-5.0) g/dL Globulin 2.4 (1.7-4.1) g/dL Albumin/Globulin Ratio 1.4 (1.0-2.8) Lipase (23-300) U/L Procalcitonin (<0.5) ng/mL Urine RBC (0-5/HPF) Urine WBC (0-5/HPF) Ur Squamous Epith Cells Amorphous Sediment Urine Bacteria (None) Urine Yeast (None) Ur Culture Indicated? Micro UA Comment Point of Care Testing Test Results Negative Urine Dip Bedside Urine Glucose Negative Bedside Urine Bilirubin - Negative Bedside Urine Ketone - Negative Urine Specific [place] 1.015 Bedside Urine Occult Blood - Negative Bedside Urine pH 6.0 Bedside Urine Protein - Negative Bedside Urine Urobilinogen - Negative Bedside Urine Nitrite - Negative Bedside Urine Leukocytes +++ 500 Esterase MDM Narrative Medical decision making narrative: CBC was obtained was unremarkable. Chemistry panel along with procalcitonin and lactate were obtained were unremarkable. Urinalysis indicates positive leuko esterase and WBCs, KUB CT was obtained to rule out complications and was negative for any acute findings. Due to failure of a p.o. antibiotics she is admitted for IV antibiotics. Discussed case with hospitalist Dr. Maza who accepted patient. She is started on cefepime. <Bernardo Watkins, DO - Last Filed: 06/10/18 08:35> Lab Data Lab Results 06/07/18 06/07/18 06/07/18 Range/Units 13:24 14:25 14:25 WBC (4.5-11.0) X10^3/uL RBC (4.0-5.2) X10^6/uL Hgb (12.0-16.0) g/dL Hct (36-46) % MCV (80-100) fL MCH (26-34) PG MCHC (30-36) % RDW (11.6-14.8) % Plt Count (150-400) X10^3/uL Neut % (Auto) (50-75) % Lymph % (Auto) (25-40) % [place] % (Auto) (3-14) % Eos % (Auto) (2-4) % Baso % (Auto) (0-2) % Neut # (Auto) (1860-7768) /uL Sodium (137-145) mmol/L Potassium (3.4-5.1) mmol/L Chloride (98-107) mmol/L Carbon Dioxide (22-32) mmol/L BUN (7-17) mg/dL Creatinine (0.52-1.04) mg/dL Estimated GFR (>60) mL/min BUN/Creatinine Ratio (6-22) Glucose (70-100) mg/dL Lactate 0.6 L (0.7-2.1) mmol/L Calcium (8.4-10.2) mg/dL Total Bilirubin (0.2-1.3) mg/dL AST (14-36) IU/L ALT (9-52) IU/L Alkaline Phosphatase (38-126) U/L Total Protein (6.3-8.2) g/dL Albumin (3.5-5.0) g/dL Globulin (1.7-4.1) g/dL Albumin/Globulin Ratio (1.0-2.8) Lipase (23-300) U/L Procalcitonin < 0.05 (<0.5) ng/mL Urine RBC 0-1/hpf (0-5/HPF) Urine WBC 5-10/hpf H (0-5/HPF) Ur Squamous Epith Cells 5-10 /hpf H Amorphous Sediment 1+ Urine Bacteria Moderate (10-30) H (None) Urine Yeast 1-5/hpf H (None) Ur Culture Indicated? Cult not indicated Micro UA Comment Not Reportable 06/07/18 06/07/18 06/08/18 Range/Units 14:25 14:25 05:50 WBC 8.0 6.7 (4.5-11.0) X10^3/uL RBC 4.21 3.66 L (4.0-5.2) X10^6/uL Hgb 12.1 10.8 L (12.0-16.0) g/dL Hct 35.8 L 31.2 L (36-46) % MCV 85.0 85.4 (80-100) fL MCH 28.8 29.5 (26-34) PG MCHC 33.8 34.5 (30-36) % RDW 13.4 13.4 (11.6-14.8) % Plt Count 192 170 (150-400) X10^3/uL Neut % (Auto) 77.5 H 64.1 (50-75) % Lymph % (Auto) 15.5 L 25.8 (25-40) % [place] % (Auto) 6.0 8.2 (3-14) % Eos % (Auto) 0.5 L 1.3 L (2-4) % Baso % (Auto) 0.5 0.6 (0-2) % Neut # (Auto) 6200 4300 (4036-4847) /uL Sodium 138 (137-145) mmol/L Potassium 3.9 (3.4-5.1) mmol/L Chloride 107 (98-107) mmol/L Carbon Dioxide 21 L (22-32) mmol/L BUN 10 (7-17) mg/dL Creatinine 0.70 (0.52-1.04) mg/dL Estimated GFR > 60.0 (>60) mL/min BUN/Creatinine Ratio 14.3 (6-22) Glucose 92 (70-100) mg/dL Lactate (0.7-2.1) mmol/L Calcium 9.0 (8.4-10.2) mg/dL Total Bilirubin 0.5 (0.2-1.3) mg/dL AST 20 (14-36) IU/L ALT 27 (9-52) IU/L Alkaline Phosphatase 49 (38-126) U/L Total Protein 6.7 (6.3-8.2) g/dL Albumin 4.2 (3.5-5.0) g/dL Globulin 2.5 (1.7-4.1) g/dL Albumin/Globulin Ratio 1.7 (1.0-2.8) Lipase 72 (23-300) U/L Procalcitonin (<0.5) ng/mL Urine RBC (0-5/HPF) Urine WBC (0-5/HPF) Ur Squamous Epith Cells Amorphous Sediment Urine Bacteria (None) Urine Yeast (None) Ur Culture Indicated? Micro UA Comment 06/08/18 Range/Units 05:50 WBC (4.5-11.0) X10^3/uL RBC (4.0-5.2) X10^6/uL Hgb (12.0-16.0) g/dL Hct (36-46) % MCV (80-100) fL MCH (26-34) PG MCHC (30-36) % RDW (11.6-14.8) % Plt Count (150-400) X10^3/uL Neut % (Auto) (50-75) % Lymph % (Auto) (25-40) % [place] % (Auto) (3-14) % Eos % (Auto) (2-4) % Baso % (Auto) (0-2) % Neut # (Auto) (1502-9373) /uL Sodium 136 L (137-145) mmol/L Potassium 4.0 (3.4-5.1) mmol/L Chloride 109 H (98-107) mmol/L Carbon Dioxide 22 (22-32) mmol/L BUN 10 (7-17) mg/dL Creatinine 0.60 (0.52-1.04) mg/dL Estimated GFR > 60.0 (>60) mL/min BUN/Creatinine Ratio 16.7 (6-22) Glucose 86 (70-100) mg/dL Lactate (0.7-2.1) mmol/L Calcium 8.3 L (8.4-10.2) mg/dL Total Bilirubin 0.5 (0.2-1.3) mg/dL AST 16 (14-36) IU/L ALT 23 (9-52) IU/L Alkaline Phosphatase 38 (38-126) U/L Total Protein 5.7 L (6.3-8.2) g/dL Albumin 3.3 L (3.5-5.0) g/dL Globulin 2.4 (1.7-4.1) g/dL Albumin/Globulin Ratio 1.4 (1.0-2.8) Lipase (23-300) U/L Procalcitonin (<0.5) ng/mL Urine RBC (0-5/HPF) Urine WBC (0-5/HPF) Ur Squamous Epith Cells Amorphous Sediment Urine Bacteria (None) Urine Yeast (None) Ur Culture Indicated? Micro UA Comment Point of Care Testing Test Results Negative Urine Dip Bedside Urine Glucose Negative Bedside Urine Bilirubin - Negative Bedside Urine Ketone - Negative Urine Specific [place] 1.015 Bedside Urine Occult Blood - Negative Bedside Urine pH 6.0 Bedside Urine Protein - Negative Bedside Urine Urobilinogen - Negative Bedside Urine Nitrite - Negative Bedside Urine Leukocytes +++ 500 Esterase Discharge Plan Departure Patient Disposition: Admitted As Inpatient Clinical Impression: Pyelonephritis Discharge Date/Time: 06/07/18 16:40 Interventions: ED Discharge Assessment Last Done: 06/07/18 16:38 Admit Date/Time: 06/07/18 16:33 Admit Provider: Sanjay Rand <Bernardo Watkins DO - Last Filed: 06/10/18 08:35> Cosign ED Attending Cory Attestation: I was available for consultation during this patient's emergency department encounter
[2018-06-07 17:02] VITALS: BMI 40.8
[2018-06-07] MEDS: CEFEPIME 1 GM in SODIUM CHLORIDE 0.9% 100 ML 200 ML IV (17:11)
--- NOTE | 2018-06-07 17:14 | PC.NURSE ---
Alex[facility] shift note: Patient admitted to AC from ED, awake, alert and oriented. Updated regarding plan of care, room, and environment. C/O flank pain, L>R and nausea. Dr. Maza at
[2018-06-07 17:18] VITALS: BP 124/71; PULSE 85; RESP 18; TEMP 37.3; O2SAT 98
[2018-06-07] MEDS: ONDANSETRON 4 MG/2 ML INJ IV ×2 (17:33→21:54)
--- NOTE | 2018-06-07 17:35 | P.HP_ITS ---
History of Present Illness Date Patient Seen: 06/07/18 Time Patient Seen: 17:18 Chief complaint: SEVERE BACK PAIN, ABDOMINAL PAIN, CHILLS Narrative: THIS IS A 32-YEAR-OLD FEMALE WITH PAST MEDICAL HISTORY SIGNIFICANT FOR LUPUS ON IMMUNOSUPPRESSANT AGENT. PATIENT ALSO REPORTED SEIZURE DISORDER MIGRAINE. THE PATIENT IS . SHE IS . SHE REPORTED PRIOR UTI AT AROUND AGE 17. NO PRIOR YEAST INFECTION REPORTED. SHE IS SEXUALLY ACTIVE. DOES NOT USE CONDOMS. SHE REPORTEDLY CAME TO THE HOSPITAL ER AND WAS TREATED PREVIOUSLY WITH CIPRO FOR 10 DAY COURSE AND AFTER WAS AGAIN TREATED WITH KEFLEX FOR A COUPLE OF DAYS. THE SYMPTOMS WHO BROUGHT HER TO THE ER HOWEVER DID NOT RESOLVE AND TO REASON WHY SHE CAME TO THE HOSPITAL TODAY CC REPORTED SEVERE FLANK PAIN. WITH SOME RADIATION ON THE ANTERIOR ABDOMINAL AREA WELL; SHE REPORTED SOME CHILLS AND FEVER ASSOCIATED WITH HER SYMPTOMS SOME NAUSEA BUT NO VOMITING. NO DIARRHEA. NO BLOOD IN SPUTUM ALL URINE. SHE REPORTED 1 EPISODE OF BLOODY MATERIAL IN HER STOOL NO CHEST PAIN OR SHORTNESS OF BREATH. NO RECENT WEIGHT LOSS OR WEIGHT GAIN. NO OTHER COMPLAINTS AT THIS TIME Patient History Medical History Asthma (Acute) Chest pain (Acute) Lupus (Acute) Migraines (Acute) Myocardial infarction (Acute) Nausea and vomiting (Acute) Palpitations (Acute) Port-A-Cath in place (Acute) Seizure disorder (Acute) Surgical History Hx of cholecystectomy (Acute) Hx of knee surgery (Acute) S/P matrixectomy of toe of left foot (Acute) S/P matrixectomy of toe of right foot (Acute) Family & Social History Family History: Reviewed 06/07/18 by Sanjay Rand DO Social History: household members spouse Safety & Behavioral: Feels Safe in Current Yes Environment Been Physically Hurt or No Threatened By a Person Tobacco & Substance use: Smoking Status Never smoker Substance Use Type does not use Meds Home Medications Medication Instructions Recorded Confirmed Type hydroxychloroquine [Plaquenil] 200 mg PO BIDCC #0 02/28/17 06/05/18 History omeprazole 20 mg PO BID #0 02/28/17 06/05/18 History Vitamin B-2 200 mg PO BID 03/20/18 06/05/18 History albuterol sulfate 2.5 mg INHALATION Q4-6H PRN #75 ml 03/20/18 06/05/18 Rx belimumab [Benlysta] 960 mg SUBCUT Q4W 03/20/18 06/05/18 History epinephrine [EpiPen 2-Chris] 1 dose IM PRN PRN 03/20/18 06/05/18 History melatonin 5 mg PO BEDTIME PRN 03/20/18 06/05/18 History cephalexin 500 mg PO BID #20 cap 06/05/18 Rx ondansetron 4 mg PO BID-TID PRN #10 tab 06/05/18 Rx Allergies Allergy/AdvReac Type Severity Reaction Status Date / Time amoxicillin [AMOXICILLIN] Allergy Unknown Verified 06/07/18 13:10 betamethasone [BETAMETHASONE] Allergy Unknown Anaphylaxis Verified 06/07/18 13: 10 clarithromycin [From BIAXIN] Allergy Unknown Verified 06/07/18 13:10 coconut [COCONUT] Allergy Unknown Verified 06/07/18 13:10 Iodinated Contrast- Oral and Allergy Unknown Anaphylaxis Verified 06/07/18 13:10 IV Dye [IODINATED CONTRAST- ORAL AND IV DYE] peanut [PEANUT] Allergy Unknown Verified 06/07/18 13:10 Penicillins [PENICILLINS] Allergy Unknown Verified 06/07/18 13:10 pineapple [PINEAPPLE] Allergy Unknown Verified 06/07/18 13:10 shellfish derived Allergy Unknown Verified 06/07/18 13:10 [SHELLFISH DERIVED] diphenhydramine AdvReac Verified 06/07/18 13:10 [From Benadryl] Review of Systems Review of Systems All systems reviewed & are unremarkable except as noted in HPI and below Exam Vital Signs (past 8 hours): - 06/07/18 12:58 Temperature 98.2 F Pulse Rate 114 H Respiratory Rate 18 Blood Pressure 134/89 Pulse Oximetry 100 Oxygen Delivery Method Room Air Narrative Exam Narrative: NO ACUTE DISTRESS. PATIENT IS ALERT ORIENTED X3. VITAL SIGNS STABLE HEAD ATRAUMATIC NORMOCEPHALIC NECK : SUPPLE WITHOUT ADENOPATHY NO CAROTID BRUITS EYE: EOMI, PERRLA, NORMAL CONJUNCTIVA; NO JAUNDICE CHEST: REGULAR RATE. NO RUBS. PMI IS NON DISPLACED. NO MURMURS; NORMAL S1- S2 PULMONARY: DECREASED BS OVER THE BASES. MILD BIBASILAR CRACKLES NOTED; NO INCREASED DULLNESS TO PERCUSSION ABDOMEN: SOFT. NONTENDER. NONDISTENDED. BOWEL SOUNDS ARE PRESENT IN ALL 4 QUADRANTS. NO MASS. EXTREMITIES: NO EDEMA.. NO CYANOSIS CLUBBING NOTED. NEURO: CRANIAL NERVES 2-12 GROSSLY INTACT. NO FOCAL NEUROLOGICAL DEFICIT NOTED. MSK: NORMAL RANGE OF MOTION FOR AGE. NO JOINT EFFUSION. SKIN: NORMAL FOR ETHNICITY; NO ECCHYMOSIS. NO LESION. GOOD TURGOR.; NO RASHES : NORMAL EXTERNAL GENITALIA. PSYCH : APPROPRIATE MOOD AND AFFECT. ALERT AWAKE ORIENTED X3 Objective Labs Result Diagrams: 06/07/18 14:25 06/07/18 14:25 Labs: Laboratory Results - last 24 hr 06/07/18 06/07/18 06/07/18 13:24 14:25 14:25 WBC RBC Hgb Hct MCV MCH MCHC RDW Plt Count Neut % (Auto) Lymph % (Auto) [place] % (Auto) Eos % (Auto) Baso % (Auto) Neut # (Auto) Sodium Potassium Chloride Carbon Dioxide BUN Creatinine Estimated GFR BUN/Creatinine Ratio Glucose Lactate 0.6 L Calcium Total Bilirubin AST ALT Alkaline Phosphatase Total Protein Albumin Globulin Albumin/Globulin Ratio Lipase Procalcitonin < 0.05 Urine RBC 0-1/hpf Urine WBC 5-10/hpf H Ur Squamous Epith Cells 5-10 /hpf H Amorphous Sediment 1+ Urine Bacteria Moderate (10-30) H Urine Yeast 1-5/hpf H Ur Culture Indicated? Cult not indicated Micro UA Comment Not Reportable 06/07/18 06/07/18 14:25 14:25 WBC 8.0 RBC 4.21 Hgb 12.1 Hct 35.8 L MCV 85.0 MCH 28.8 MCHC 33.8 RDW 13.4 Plt Count 192 Neut % (Auto) 77.5 H Lymph % (Auto) 15.5 L [place] % (Auto) 6.0 Eos % (Auto) 0.5 L Baso % (Auto) 0.5 Neut # (Auto) 6200 Sodium 138 Potassium 3.9 Chloride 107 Carbon Dioxide 21 L BUN 10 Creatinine 0.70 Estimated GFR > 60.0 BUN/Creatinine Ratio 14.3 Glucose 92 Lactate Calcium 9.0 Total Bilirubin 0.5 AST 20 ALT 27 Alkaline Phosphatase 49 Total Protein 6.7 Albumin 4.2 Globulin 2.5 Albumin/Globulin Ratio 1.7 Lipase 72 Procalcitonin Urine RBC Urine WBC Ur Squamous Epith Cells Amorphous Sediment Urine Bacteria Urine Yeast Ur Culture Indicated? Micro UA Comment Assessment & Plan Plan: Assessment/Plan Narrative: IMPRESSION AND PLAN UTI/PYELONEPHRITIS. PATIENT FAILED OUTPATIENT TREATMENT WITH ORAL ANTIBIOTICS. THERE WAS HE HAS NOTED ON HER URINE WELL. THIS COULD BE A COMBINED BACTERIA AND FUNGAL INFECTION. ALSO PATIENT WBC WAS NORMAL HOWEVER THERE WAS A LEFT SHIFT WITH INCREASED NEUTROPHIL COUNT. THIS COULD BE DUE TO IMMUNOSUPPRESSIVE STATE PATIENT IS BEING TREATED WITH BENLYSTA FOR HER LUPUS ; PATIENT WILL BE STARTED ON CEFEPIME FOR NOW. URINE CULTURE WILL BE SENT TO RULE OUT ESBL OR OTHER RESISTANT PATHOGENS. DIFLUCAN WILL BE ORDERED WELL. WILL CONSIDER SENDING VAGINAL SWAB FOR STDs. IV FLUID. ADJUST MANAGEMENT INDICATED MORBID OBESITY. OUTPATIENT MANAGEMENT. LIFESTYLE CHANGES LUPUS PER HISTORY. CONTINUE HOME MEDICATION WITH BENLYSTA AND PLAQUENIL. ADDITIONAL MANAGEMENT OUTPATIENT OUTPATIENT SEIZURE DISORDER PER HISTORY. PATIENT DOES NOT HAVE ANY SEIZURE MEDICATIONS SHE WAS TAKING AT HOME. WILL MONITOR CLOSELY FOR NOW EXERCISE INDUCED ASTHMA. THIS IS PER HISTORY. WILL CONTINUE HER HOME ALBUTEROL NEBULIZER NEEDED. CONSIDER DUONEB TREATMENT WELL INDICATED DURATION OF THE STAY SHOULD BE BETWEEN 24-48 HOURS TIME SPENT 45 MINS
[2018-06-07] MEDS: FLUCONAZOLE 200 MG/100 ML PIGGYBACK 100 MG IV (17:52)
[2018-06-07] MEDS: MORPHINE 2 MG/ML INJ IV (17:52)
[2018-06-07 20:08] VITALS: BP 123/55; PULSE 81; RESP 15; TEMP 36.9; O2SAT 99
[2018-06-07 23:30] VITALS: BP 119/62; PULSE 90; RESP 16; TEMP 37.1; O2SAT 99
[2018-06-08] VITALS: O2SAT 99
[2018-06-08] MEDS: SODIUM CHLORIDE 0.9% 1,000 ML 150 ML IV ×2 (02:56→09:18)
[2018-06-08 06:06] LABS: Add Manual Diff / Slide Review NO; Basophils Percent Auto 0.6 % (0-2); Eosinophils Percent Auto 1.3 % (2-4); Hematocrit 31.2 % (36-46); Hemoglobin 10.8 g/dL (12.0-16.0); Lymphocytes Percent Auto 25.8 % (25-40); Mean Corpuscular HGB Conc 34.5 % (30-36); Mean Corpuscular Hemoglobin 29.5 PG (26-34); Mean Corpuscular Volume 85.4 fL (80-100); Monocytes Percent Auto 8.2 % (3-14); Neutrophils Absolute Auto 4300 /uL (1500-7000); Neutrophils Percent Auto 64.1 % (50-75); Platelet Count 170 X10^3/uL (150-400); Red Blood Cell Count 3.66 X10^6/uL (4.0-5.2); Red Cell Distribution Width 13.4 % (11.6-14.8); White Blood Cell Count 6.7 X10^3/uL (4.5-11.0)
[2018-06-08 06:17] LABS: Alanine Aminotransferase 23 IU/L (9-52); Albumin 3.3 g/dL (3.5-5.0); Albumin Globulin Ratio 1.4 (1.0-2.8); Alkaline Phosphatase 38 U/L (38-126); Aspartate Aminotransferase 16 IU/L (14-36); BUN Creatinine Ratio 16.7 (6-22); Bilirubin Total 0.5 mg/dL (0.2-1.3); Blood Urea Nitrogen 10 mg/dL (7-17); Calcium 8.3 mg/dL (8.4-10.2); Carbon Dioxide 22 mmol/L (22-32); Chloride 109 mmol/L (98-107); Estimated Glomerular Filt Rate > 60.0 mL/min (>60); Globulin 2.4 g/dL (1.7-4.1); Glucose 86 mg/dL (70-100); HEMOLYSIS < 15 (0-50); Sodium 136 mmol/L (137-145); Total Protein 5.7 g/dL (6.3-8.2)
[2018-06-08 06:30] VITALS: BP 111/59; PULSE 81; RESP 16; TEMP 36.9; O2SAT 98
[2018-06-08 07:00] VITALS: O2SAT 99
--- NOTE | 2018-06-08 07:02 | PC.NURSE ---
Denied pain this shift. Does appear to be light sensitive, likes door closed. Blood drawn from port and sent to lab. Patient tolerated well.
[2018-06-08] MEDS: ONDANSETRON 4 MG/2 ML INJ IV (07:34)
--- NOTE | 2018-06-08 08:45 | PM.DS.1 ---
History of Present Illness Chief complaint: SEVERE BACK PAIN, ABDOMINAL PAIN, CHILLS Narrative: THIS IS A 32-YEAR-OLD FEMALE WITH PAST MEDICAL HISTORY SIGNIFICANT FOR LUPUS ON IMMUNOSUPPRESSANT AGENT. PATIENT ALSO REPORTED SEIZURE DISORDER MIGRAINE. THE PATIENT IS . SHE IS . SHE REPORTED PRIOR UTI AT AROUND AGE 17. NO PRIOR YEAST INFECTION REPORTED. SHE IS SEXUALLY ACTIVE. DOES NOT USE CONDOMS. SHE REPORTEDLY CAME TO THE HOSPITAL ER AND WAS TREATED PREVIOUSLY WITH CIPRO FOR 10 DAY COURSE AND AFTER WAS AGAIN TREATED WITH KEFLEX FOR A COUPLE OF DAYS. THE SYMPTOMS WHO BROUGHT HER TO THE ER HOWEVER DID NOT RESOLVE AND TO REASON WHY SHE CAME TO THE HOSPITAL TODAY CC REPORTED SEVERE FLANK PAIN. WITH SOME RADIATION ON THE ANTERIOR ABDOMINAL AREA WELL; SHE REPORTED SOME CHILLS AND FEVER ASSOCIATED WITH HER SYMPTOMS SOME NAUSEA BUT NO VOMITING. NO DIARRHEA. NO BLOOD IN SPUTUM ALL URINE. SHE REPORTED 1 EPISODE OF BLOODY MATERIAL IN HER STOOL NO CHEST PAIN OR SHORTNESS OF BREATH. NO RECENT WEIGHT LOSS OR WEIGHT GAIN. NO OTHER COMPLAINTS AT THIS TIME Discharge Providers Date of admission: 06/07/18 16:33 Primary care physician: Denise Patel Consults: 06/07/18 17:01 Consult to Discharge Planning Routine Comment: Discharge provider: Sanjay Rand DO Discharge Date: 06/08/18 Summary Discharge Diagnosis: POSS STERILE UTI VS YEAST UTI /PYELONEPHRITIS ; DC ON ABX/ANTIFUNGAL MIGRAIN / CHAPMAN; OUTPATIENT MANAGEMENT ' MORBID OBESITY; OUTPATIENT MANAGEMENT LUPUS PER HX; OUTPATIENT MANAGEMENT SEIZURE PER HX EXERCISE INDUCED ASTHMA PER HX HYPONATREMIA; MILD; MONITOR FOR NOW Hospital Course: - PATIENT PRESENTED TO THE ED WITH FLANK PAIN - HER CT OF THE ABD WAS NEG FOR RENAL STONES AND GALLSTONES - SHE HOWEVER HAD PYURIA NOTED IN THE URINE - SHE WAS TREATED PREVIOUSLY WITH ABX FOR THE SAME SX - HER WBC REMAINS WNL; HER URINE SHOWED NO GROWTH AFTER 24 HRS - YEAST HOWEVER WAS NOTED IN THE URINE SAMPLE - SHE WILL BE DC ON BROAD EXPECTRUM ABX WELL ANTIFUNGAL MEDS - ADDITIONAL MANAGEMENT PER OUTPATIENT PROVIDERS Status at Discharge Cognitive/behavioral status at discharge: STABLE TO HOME Functional status at discharge: independent ambulation Overall status at discharge: patient is back to baseline Time Spent with Patient Greater than 30 minutes Exam Vital Signs (past 8 hours): - 06/08/18 06:30 Temperature 98.4 F Pulse Rate 81 Respiratory Rate 16 Blood Pressure 111/59 L Pulse Oximetry 98 Oxygen Delivery Method Room Air Oxygen Flow Rate 0 Narrative Exam Narrative: NO ACUTE DISTRESS. PATIENT IS ALERT ORIENTED X3. VITAL SIGNS STABLE HEAD ATRAUMATIC NORMOCEPHALIC NECK : SUPPLE WITHOUT ADENOPATHY NO CAROTID BRUITS EYE: EOMI, PERRLA, NORMAL CONJUNCTIVA; NO JAUNDICE CHEST: REGULAR RATE. NO RUBS. PMI IS NON DISPLACED. NO MURMURS; NORMAL S1-S2 PULMONARY: DECREASED BS OVER THE BASES. MILD BIBASILAR CRACKLES NOTED; NO INCREASED DULLNESS TO PERCUSSION ABDOMEN: SOFT. NONTENDER. NONDISTENDED. BOWEL SOUNDS ARE PRESENT IN ALL 4 QUADRANTS. NO MASS. EXTREMITIES: NO EDEMA.. NO CYANOSIS CLUBBING NOTED. NEURO: CRANIAL NERVES 2-12 GROSSLY INTACT. NO FOCAL NEUROLOGICAL DEFICIT NOTED. MSK: NORMAL RANGE OF MOTION FOR AGE. NO JOINT EFFUSION. SKIN: NORMAL FOR ETHNICITY; NO ECCHYMOSIS. NO LESION. GOOD TURGOR.; NO RASHES : NORMAL EXTERNAL GENITALIA. PSYCH : APPROPRIATE MOOD AND AFFECT. ALERT AWAKE ORIENTED X3 Objective Labs Result Diagrams: 06/08/18 05:50 06/08/18 05:50 Labs: Laboratory Results - last 24 hr 06/07/18 06/07/18 06/07/18 13:24 14:25 14:25 WBC RBC Hgb Hct MCV MCH MCHC RDW Plt Count Neut % (Auto) Lymph % (Auto) [place] % (Auto) Eos % (Auto) Baso % (Auto) Neut # (Auto) Sodium Potassium Chloride Carbon Dioxide BUN Creatinine Estimated GFR BUN/Creatinine Ratio Glucose Lactate 0.6 L Calcium Total Bilirubin AST ALT Alkaline Phosphatase Total Protein Albumin Globulin Albumin/Globulin Ratio Lipase Procalcitonin < 0.05 Urine RBC 0-1/hpf Urine WBC 5-10/hpf H Ur Squamous Epith Cells 5-10 /hpf H Amorphous Sediment 1+ Urine Bacteria Moderate (10-30) H Urine Yeast 1-5/hpf H Ur Culture Indicated? Cult not indicated Micro UA Comment Not Reportable 06/07/18 06/07/18 06/08/18 14:25 14:25 05:50 WBC 8.0 6.7 RBC 4.21 3.66 L Hgb 12.1 10.8 L Hct 35.8 L 31.2 L MCV 85.0 85.4 MCH 28.8 29.5 MCHC 33.8 34.5 RDW 13.4 13.4 Plt Count 192 170 Neut % (Auto) 77.5 H 64.1 Lymph % (Auto) 15.5 L 25.8 [place] % (Auto) 6.0 8.2 Eos % (Auto) 0.5 L 1.3 L Baso % (Auto) 0.5 0.6 Neut # (Auto) 6200 4300 Sodium 138 Potassium 3.9 Chloride 107 Carbon Dioxide 21 L BUN 10 Creatinine 0.70 Estimated GFR > 60.0 BUN/Creatinine Ratio 14.3 Glucose 92 Lactate Calcium 9.0 Total Bilirubin 0.5 AST 20 ALT 27 Alkaline Phosphatase 49 Total Protein 6.7 Albumin 4.2 Globulin 2.5 Albumin/Globulin Ratio 1.7 Lipase 72 Procalcitonin Urine RBC Urine WBC Ur Squamous Epith Cells Amorphous Sediment Urine Bacteria Urine Yeast Ur Culture Indicated? Micro UA Comment 06/08/18 05:50 WBC RBC Hgb Hct MCV MCH MCHC RDW Plt Count Neut % (Auto) Lymph % (Auto) [place] % (Auto) Eos % (Auto) Baso % (Auto) Neut # (Auto) Sodium 136 L Potassium 4.0 Chloride 109 H Carbon Dioxide 22 BUN 10 Creatinine 0.60 Estimated GFR > 60.0 BUN/Creatinine Ratio 16.7 Glucose 86 Lactate Calcium 8.3 L Total Bilirubin 0.5 AST 16 ALT 23 Alkaline Phosphatase 38 Total Protein 5.7 L Albumin 3.3 L Globulin 2.4 Albumin/Globulin Ratio 1.4 Lipase Procalcitonin Urine RBC Urine WBC Ur Squamous Epith Cells Amorphous Sediment Urine Bacteria Urine Yeast Ur Culture Indicated? Micro UA Comment Discharge Plan Discharge Plan Patient Disposition: Home Discharge comment: DC HOME TODAY ACT WILL CARDIAC DIET F/U WITH PCP 3-10 DAYS Discharge Med Rec/Prescriptions Prescriptions: New fluconazole [Diflucan] 200 mg tablet 200 mg PO DAILY Qty: 5 RF: 0 levofloxacin [Levaquin] 500 mg tablet 500 mg PO DAILY 7 Days Qty: 7 RF: 0 doxycycline hyclate 100 mg tablet 100 mg PO BID 7 Days Qty: 14 RF: 0 Continue omeprazole 20 MG capsule,delayed release(DR/EC) 20 mg PO BID Qty: 0 RF: 0 hydroxychloroquine [Plaquenil] 200 MG tablet 200 mg PO BIDCC Qty: 0 RF: 0 epinephrine [EpiPen 2-Chris] 0.3 mg/0.3 mL auto-injector 1 dose IM PRN PRN (Reason: Allergic Reaction) RF: 0 melatonin 5 mg Tablet 5 mg PO BEDTIME PRN (Reason: Sleep) RF: 0 belimumab [Benlysta] 200 mg/mL Syringe 960 mg SUBCUT Q4W RF: 0 Vitamin B-2 200 mg 200 mg PO BID RF: 0 albuterol sulfate 2.5 mg /3 mL (0.083 %) solution for nebulization 2.5 mg INHALATION Q4-6H PRN (Reason: wheezing ) Qty: 75 RF: 0 ondansetron 4 mg tablet,disintegrating 4 mg PO BID-TID PRN (Reason: nausea and vomiting) Qty: 10 RF: 0 Follow up/Referrals: Denise Patel [Primary Care Provider] - Provider Discharge Instructions Diet: Low-fat and Low-cholesterol Skin/Wound/Dressing Care Report to your healthcare provider any signs of infection, such as:: chills, fever, night sweats, increased pain, unusual drainage and unusual redness Visit Report/Discharge Packet Visit Report Forms: Stroke Signs & Symptoms Discharge Data Primary Care Provider: Denise Patel Attending Provider: Sanjay Rand Admit Date/Time: 06/07/18 16:33
[2018-06-08 09:05] VITALS: BP 120/67; PULSE 86; RESP 16; TEMP 36.8; O2SAT 100
[2018-06-08] MEDS: KETOROLAC 15 MG/ML VIAL IV (09:11)
[2018-06-08] MEDS: BUTALB/APAP/CAFFEINE 50/325/40 TABLET 1 EACH PO (10:00)
[2018-06-08 12:13] VITALS: BP 122/73; PULSE 92; RESP 20; TEMP 36.9; O2SAT 100
--- NOTE | 2018-06-08 12:15 | PC.NURSE ---
Addendum entered by Xochitl Schwartz R.N. 06/08/18 14:14: Original Note: AM Shift Pt has c/o migraine pain this AM, did not want Opiates for pain relief Orders rec'd and Toradol given with good effect. Flank pain has improved and Pt has no current nausea. Indep to BR and denies dysuria. Plan to d/c today with f/u outpatient.
--- NOTE | 2018-06-08 13:40 | CM.DANOTE ---
DCP Chart Review/Discharge Home Patient is a 32 year old female who was admitted OBS STATUS on 06/07/18 for Back Pain, Chills, Abd Pain. Pt has [employer] for insurance and her PCP is Dr. Dneise Patel. EMR was reviewed. Per MD, pt has a hx of Lupus at baseline and is now medically clear for d/c home today with no identified barriers to discharge. Per RN, pt seems to be well pain managed and plans for home with today with no current concerns. Plan: Patient to d/c home today via POV when available and no SW needs at this time. MELINA Serrano
== END 2018-06-08 13:00 | disposition home or self-care (01) ==
LOC: ED 13:17 → AC 16:39
PROVIDERS: Admitting Provider Hospitalist; Emergency Provider Nurse Practitioner Family; PCP Physician Assistant Medical; Visit Provider Hospitalist
DX: E87.1 Hypo-osmolality and hyponatremia (principal); R10.9 Unspecified abdominal pain; E66.01 Morbid (severe) obesity due to excess calories; Z68.41 Body mass index [BMI] 40.0-44.9, adult; G40.909 Epilepsy, unspecified, not intractable, without status epilepticus; M32.9 Systemic lupus erythematosus, unspecified; J45.909 Unspecified asthma, uncomplicated; I25.2 Old myocardial infarction; M54.89 Other dorsalgia; R50.9 Fever, unspecified; R11.0 Nausea
CPT/HCPCS: 36415; 36591; 74176; 80053; 81003; 81015; 81025; 83605; 83690; 84145; 85025; 87040; 87086; 96360; 99283; 99285; G0378; J0692; J1450; J1885; J2270; J2405

== ENCOUNTER 2018-09-26 14:56 | Emergency (ER) | payer OTHER, SELFPAY ==
[2018-09-26 15:01] VITALS: BP 140/80; PULSE 97; RESP 17; TEMP 36.8; O2SAT 100; BMI 42.3
--- NOTE | 2018-09-26 15:03 | DI.RAD.S_ITS ---
PROCEDURE: XR WRIST RT MIN 3V INDICATIONS: fell onto right hand,right wrist pain TECHNIQUE: 4 views of the wrist were acquired. COMPARISON: None. FINDINGS: Bones: Subtle cortical irregularity at the distal radius seen only on one projection. Otherwise, no acute fractures or dislocations. No suspicious bony lesions. Scaphoid view: Scapholunate interval is preserved. Soft tissues: No suspicious soft tissue calcifications. IMPRESSION: Subtle cortical irregularity involving the distal radius that is only visualized on one projection. This may be secondary to projection; however, a subtle fracture is not completely excluded given history of fall. Consider immobilization and repeat imaging in 10-14 days to reassess. Dictated by: Selvin Hoang M.D. on 09/26/2018 at 15:47 Approved by: Selvin Hoang M.D. on 09/26/2018 at 15:49
--- NOTE | 2018-09-26 18:36 | ED_ITS ---
HPI - Extremity Injury (Upper) General Chief Complaint: Extremity Injury, Upper Stated Complaint: fall, thinks she broke her right wrist Time Seen by Provider: 09/26/18 18:36 Source: patient Mode of arrival: ambulatory Limitations: no limitations History of Present Illness HPI narrative: Patient is a 33-year-old female who states that she was sitting on her couch when her child jumped on her lap. She states that it knocked her over. In order to prevent herself from falling on her child she put her arm out. States she started to have pain afterwards on the thumb side of her wrist. With decreased movement. No other injuries reported from the event. Related Data Home Medications Medication Instructions Recorded Confirmed hydroxychloroquine [Plaquenil] 200 mg PO BIDCC #0 02/28/17 06/07/18 omeprazole 20 mg PO BID #0 02/28/17 06/07/18 Vitamin B-2 200 mg PO BID 03/20/18 06/07/18 belimumab [Benlysta] 960 mg SUBCUT Q4W 03/20/18 06/07/18 epinephrine 1 dose IM PRN PRN 03/20/18 06/07/18 melatonin 5 mg PO BEDTIME PRN 03/20/18 06/07/18 Previous Rx's Medication Instructions Recorded albuterol sulfate 2.5 mg INHALATION Q4-6H PRN #75 ml 03/20/18 ondansetron 4 mg PO BID-TID PRN #10 tab 06/05/18 fluconazole [Diflucan] 200 mg PO DAILY #5 tab 06/08/18 ondansetron HCl [Zofran] 4 mg PO Q8-12H PRN #30 tab 06/08/18 Allergies Allergy/AdvReac Type Severity Reaction Status Date / Time amoxicillin [AMOXICILLIN] Allergy Unknown Verified 09/26/18 15:00 betamethasone [BETAMETHASONE] Allergy Unknown Anaphylaxis Verified 09/26/18 15:00 clarithromycin [From BIAXIN] Allergy Unknown Verified 09/26/18 15:00 coconut [COCONUT] Allergy Unknown Verified 09/26/18 15:00 Iodinated Contrast- Oral and Allergy Unknown Anaphylaxis Verified 09/26/18 15:00 IV Dye [IODINATED CONTRAST- ORAL AND IV DYE] peanut [PEANUT] Allergy Unknown Verified 09/26/18 15:00 Penicillins [PENICILLINS] Allergy Unknown Verified 09/26/18 15:00 pineapple [PINEAPPLE] Allergy Unknown Verified 09/26/18 15:00 shellfish derived Allergy Unknown Verified 09/26/18 15:00 [SHELLFISH DERIVED] diphenhydramine AdvReac Verified 09/26/18 15:00 [From Benadryl] Review of Systems Constitutional Denies fatigue Musculoskeletal Comments: Right wrist pain Integumentary/Breasts Denies rash Neurologic Comments: Tingling out to her thumb on the right hand Endocrine Denies fatigue Hematologic/Lymphatic Denies easy bleeding and Denies easy bruising Allergic/Immunologic Denies urticaria ON LICENSE OF [facility] Medical History Asthma (Acute) Chest pain (Acute) Lupus (Acute) Migraines (Acute) Myocardial infarction (Acute) Nausea and vomiting (Acute) Palpitations (Acute) Port-A-Cath in place (Acute) Seizure disorder (Acute) Surgical History Hx of cholecystectomy (Acute) Hx of knee surgery (Acute) S/P matrixectomy of toe of left foot (Acute) S/P matrixectomy of toe of right foot (Acute) Social History household members: spouse Smoking Status: Never smoker alcohol intake: never Social History household members: spouse Smoking Status: Never smoker alcohol intake: never Exam Initial Vital Signs Initial Vital Signs: Vital Signs Temperature 98.3 F 09/26/18 15:01 Pulse Rate 97 H 09/26/18 15:01 Respiratory Rate 17 09/26/18 15:01 Blood Pressure 140/80 09/26/18 15:01 Pulse Oximetry 100 09/26/18 15:01 Const General: cooperative, healthy appearing, comfortable, well developed, well groomed and No acute distress Cardio Pulses: radial pulses present on the right Skin Lesions: no lesions Rashes: no rashes Neuro General: alert, awake and oriented x3 Sensory Exam: no sensory deficits noted Extrem Other: Tenderness to palpation on the distal radius both palmar and dorsal aspect. Also has tenderness to palpation in the anatomic snuffbox. The rest of her hand is unremarkable. Her elbow and forearm unremarkable. Psych Appearance: grossly normal and well kempt Procedures Orthopedic Splinting/Casting Injury #1: Side: right Upper Extremity Injury Location: wrist Upper Extremity Immobilizer: thumb spica Post splinting neuro exam: intact and no change Post splinting vascular exam: intact Placed by: Provider Course Orders Ordered: ED Orders 09/26/18 15:03 XR wrist RT min 3V Stat Discontinued Medications Ondansetron HCl (Zofran Odt) 4 mg SL NOW ONE Stop: 09/26/18 18:56 Last Admin: 09/26/18 19:00 Dose: 4 mg Vital Signs - 8 hr 09/26/18 19:59 Pulse Rate 85 Blood Pressure 133/93 H Pulse Oximetry 100 MDM - Extremity Injury (Upper) Imaging Data Wrist x-ray: Radiologist's impression: [address] [address] XRay Report Signed Patient: Ania Dejesus RMR#: [id number] : 1985Acct:[id number] Age/Sex: 33 / FDate of Service: 09/26/18 Loc: ED Accession Number: [id number] Procedure: XR wrist RT min 3V Ordering Provider: Cindy Villalba D.O. PROCEDURE: XR WRIST RT MIN 3V INDICATIONS: fell onto right hand,right wrist pain TECHNIQUE: 4 views of the wrist were acquired. COMPARISON: None. FINDINGS: Bones: Subtle cortical irregularity at the distal radius seen only on one projection. Otherwise, no acute fractures or dislocations. No suspicious bony lesions. Scaphoid view: Scapholunate interval is preserved. Soft tissues: No suspicious soft tissue calcifications. IMPRESSION: Subtle cortical irregularity involving the distal radius that is only visualized on one projection. This may be secondary to projection; however, a subtle fracture is not completely excluded given history of fall. Consider immobilization and repeat imaging in 10-14 days to reassess. Dictated by: Selvin Hoang M.D. on 09/26/2018 at 15:47 Approved by: Selvin Hoang M.D. on 09/26/2018 at 15:49 [facility] Narrative Medical decision making narrative: Patient does have a question of a distal radius fracture and she is tender over this area. She also has snuffbox tenderness. There is no mention of a navicular fracture in the note. I did discuss this with the radiologist who stated that there is no indication of fracture in this area. He states that he was able to visualize it on these films. Patient was placed in a thumb spica splint. She already has a orthopedic surgeon and is scheduled for an operation on the tendon/ligaments in this wrist. Informed her that she needed to talk with her orthopedic surgeon about this. She was given care instructions and return precautions. She expressed understanding and agreement plan. Discharge Plan Departure Patient Disposition: Home Clinical Impression: Distal radius fracture, right Qualifiers: Encounter type: initial encounter Fracture type: closed Fracture morphology: unspecified fracture morphology Qualified Code(s): S52.501A - Unspecified fracture of the lower end of right radius, initial encounter for closed fracture Discharge Date/Time: 09/26/18 20:00 Interventions: ED Discharge Assessment Last Done: 09/26/18 19:59 Instructions: How to Take Care of Your Cast, DI for Distal Radius Fracture Activity Restrictions/Additional Instructions: The splint needs to stay on and needs to stay clean and stay dry. On Friday contact your orthopedic provider to discuss follow-up. Return to the emergency department for any new or worsening symptoms Prescriptions: No Action omeprazole 20 MG capsule,delayed release(DR/EC) 20 mg PO BID Qty: 0 RF: 0 hydroxychloroquine [Plaquenil] 200 MG tablet 200 mg PO BIDCC Qty: 0 RF: 0 epinephrine 0.3 mg/0.3 mL auto-injector 1 dose IM PRN PRN (Reason: Allergic Reaction) RF: 0 melatonin 5 mg Tablet 5 mg PO BEDTIME PRN (Reason: Sleep) RF: 0 belimumab [Benlysta] 200 mg/mL Syringe 960 mg SUBCUT Q4W RF: 0 Vitamin B-2 200 mg 200 mg PO BID RF: 0 albuterol sulfate 2.5 mg /3 mL (0.083 %) solution for nebulization 2.5 mg INHALATION Q4-6H PRN (Reason: wheezing ) Qty: 75 RF: 0 ondansetron 4 mg tablet,disintegrating 4 mg PO BID-TID PRN (Reason: nausea and vomiting) Qty: 10 RF: 0 fluconazole [Diflucan] 200 mg tablet 200 mg PO DAILY Qty: 5 RF: 0 ondansetron HCl [Zofran] 4 mg tablet 4 mg PO Q8-12H PRN (Reason: nausea and vomiting) Qty: 30 RF: 0 Referrals: Denise Patel [Primary Care Provider] -
[2018-09-26] MEDS: ONDANSETRON 4 MG ODT SL (19:00)
[2018-09-26 19:59] VITALS: BP 133/93; PULSE 85; O2SAT 100
== END 2018-09-26 20:00 | disposition home or self-care (01) ==
PROVIDERS: Emergency Provider Emergency Medicine; PCP Physician Assistant Medical
DX: S52.501A Unspecified fracture of the lower end of right radius, initial encounter for closed fracture (principal); W19.XXXA Unspecified fall, initial encounter
CPT/HCPCS: 73110; 99282; 99283

== ENCOUNTER → 2019-05-12 10:48 | Outpatient (CLI) | payer OTHER, SELFPAY ==
--- NOTE | 2019-05-12 | DI.MRI.S_ITS ---
PROCEDURE: MR WRIST RT WO CON INDICATIONS: RT WRIST PAIN TECHNIQUE: Noncontrast coronal proton density fast spin echo and T2 fast spin echo with fat saturation; coronal 3-D gradient echo, axial T1 spin echo and T2 fast spin echo with fat saturation, sagittal T1 spin echo through the wrist. COMPARISON: [facility], MR, WRIST WITHOUT CONTRAST, 05/08/2017, 15:54. FINDINGS: Image quality: Excellent. Bones and cartilage: The carpal bones are normally aligned. No bone marrow contusions or fractures. No evidence for avascular necrosis. Previously described small degenerative intraosseous ganglion within radial aspect of lunate adjacent to the scapholunate ligament insertion is again seen. Overlying cartilage surfaces appear normal. Carpal ligaments: The lunotriquetral ligament appears intact. Thickened the scapholunate ligament is again seen, suggestive of ligament sprain unchanged from prior study. In the absence of intra-articular contrast, the extrinsic carpal ligaments are not well identified. On sagittal images, the pisohamate ligament appears intact. Triangular fibrocartilage complex: The triangular fibrocartilage appears intact. The adjacent meniscal homolog appears normal in the absence of intra-articular contrast. The extensor carpi ulnaris tendon is normal in location and morphology. Tendons and soft tissues: The carpal tunnel structures appear normal, including the median nerve. The ulnar nerve appears normal within Guyon's canal. All six extensor tendon compartments demonstrate normal morphology, without pathologic tendon sheath fluid. No soft tissue ganglion cysts. IMPRESSION: 1. No significant changes from previous study in 2017. 2. No acute internal derangement is noted. Suggestion of old scapholunate ligament injury. Rest of tendons and ligaments of right wrist are intact. 3. No marrow edema. No fracture or dislocation. No suspicious intraosseous lesion. Dictated by: Elkin Olson M.D. on 05/12/2019 at 12:59 Approved by: Elkin Olson M.D. on 05/12/2019 at 13:03
== END ==
PROVIDERS: PCP Registered Nurse Diabetes Educator; Visit Provider Orthopaedic Surgery
DX: M25.531 Pain in right wrist (principal)
CPT/HCPCS: 73221

== ENCOUNTER 2019-05-22 11:46 | Emergency (ER) | payer OTHER, SELFPAY ==
[2019-05-22 11:55] VITALS: BP 156/85; PULSE 111; RESP 22; TEMP 36.6; O2SAT 100; BMI 42.7
--- NOTE | 2019-05-22 12:01 | ED.ABDPAIN ---
HPI - Abdominal Pain General Chief Complaint: Abdominal Pain Stated Complaint: right lower abdomen pain severe Time Seen by Provider: 05/22/19 11:53 History of Present Illness HPI narrative: 33-year-old otherwise healthy woman awoke at 2:00 a.m. this morning with severe right lower quadrant pain that has progressively gotten worse. Seen by her primary care physician in [place] and sent to the emergency room for further evaluation. She denies fevers but does note some chills she is nauseated with the severity of the pain and seems to be coming in waves. She has noticed no blood in her urine, dysuria, vaginal discharge. periods are regular last was about 2 weeks ago her only sexual partner has had a vasectomy and she does not suspect that she is currently . She does have a history of ovarian cysts but this feels different than those. She has had no difficulties with kidney stones in the past. Related Data Home Medications Medication Instructions Recorded Confirmed hydroxychloroquine [Plaquenil] 200 mg PO BIDCC #0 02/28/17 06/07/18 omeprazole 20 mg PO BID #0 02/28/17 06/07/18 Vitamin B-2 200 mg PO BID 03/20/18 06/07/18 belimumab [Benlysta] 960 mg SUBCUT Q4W 03/20/18 06/07/18 epinephrine 1 dose IM PRN PRN 03/20/18 06/07/18 melatonin 5 mg PO BEDTIME PRN 03/20/18 06/07/18 Previous Rx's Medication Instructions Recorded albuterol sulfate 2.5 mg INHALATION Q4-6H PRN #75 ml 03/20/18 ondansetron 4 mg PO BID-TID PRN #10 tab 06/05/18 fluconazole [Diflucan] 200 mg PO DAILY #5 tab 06/08/18 ondansetron HCl [Zofran] 4 mg PO Q8-12H PRN #30 tab 06/08/18 Allergies Allergy/AdvReac Type Severity Reaction Status Date / Time amoxicillin [AMOXICILLIN] Allergy Unknown Verified 05/22/19 12:05 betamethasone [BETAMETHASONE] Allergy Unknown Anaphylaxis Verified 05/22/19 12:05 clarithromycin [From BIAXIN] Allergy Unknown Verified 05/22/19 12:05 coconut [COCONUT] Allergy Unknown Verified 05/22/19 12:05 Iodinated Contrast Media Allergy Unknown Anaphylaxis Verified 05/22/19 12:05 [IODINATED CONTRAST- ORAL AND IV DYE] peanut [PEANUT] Allergy Unknown Verified 05/22/19 12:05 Penicillins [PENICILLINS] Allergy Unknown Verified 05/22/19 12:05 pineapple [PINEAPPLE] Allergy Unknown Verified 05/22/19 12:05 shellfish derived Allergy Unknown Verified 05/22/19 12:05 [SHELLFISH DERIVED] diphenhydramine AdvReac Verified 05/22/19 12:05 [From Benadryl] Review of Systems Review of Systems ROS Unobtainable: All systems reviewed & are unremarkable except as noted in HPI and below Patient History Medical History Asthma (Acute) Chest pain (Acute) Lupus (Acute) Migraines (Acute) Myocardial infarction (Acute) Nausea and vomiting (Acute) Palpitations (Acute) Port-A-Cath in place (Acute) Seizure disorder (Acute) Surgical History Hx of cholecystectomy (Acute) Hx of knee surgery (Acute) S/P matrixectomy of toe of left foot (Acute) S/P matrixectomy of toe of right foot (Acute) Social History household members: spouse Smoking Status: Never smoker alcohol intake: never Smoking Status: Never smoker alcohol intake frequency: holidays/special occasions only Substance Use Type: does not use Exam Narrative Exam Narrative: General: Healthy appearing, in obvious distress. shuffling walk bending over to protect the right lower quadrant and reduce pain overall Able to give a complete and coherent history. Well-nourished well-developed HEENT: Moist mucous membranes, normal sclera with reactive pupils, Neck: No JVD, supple Respiratory: Lungs are clear to auscultation, no wheezing no rales no rhonchi. Full and symmetrical air movement Cardiac: Regular rate and rhythm no murmurs no bruits Abdomen: Soft , diminished bowel tones, no flank pain. significant tenderness in the right lower quadrant with some early guarding. Right flank has pain radiating up to that area from the right lower quadrant Skin: Warm and dry, no rashes Neurologic: Grossly neurologically intact with no obvious asymmetries or abnormalities Extremities: No trauma, well perfused Psych: Cooperative, appropriate insight and affect Initial Vital Signs Initial Vital Signs: Vital Signs Temperature 98 F 05/22/19 11:55 Pulse Rate 111 H 05/22/19 11:55 Respiratory Rate 22 05/22/19 11:55 Blood Pressure 156/85 H 05/22/19 11:55 Pulse Oximetry 100 05/22/19 11:55 Course Course Course Narrative: Lab work, ultrasound, CT scan also suggests no significant findings specifically no ovarian torsion, appendicitis, ectopic , ruptured viscus, colitis obvious abscess or masses. She does have a moderate amount of stool in the right colon we entertained the possibility that constipation is causing the problem. She does note that she has had diarrhea over the last couple of days and it may be that the stool is firm enough on the right side that she is now working around that with liquid stool. The pain that she is having does come in waves like 1 would expect with uterine, ureteral or bowel pain. reviewed all of these concerns and findings with her. We negotiated a single Percocet prior to discharge, Toradol and home with magnesium citrate. If she has still not had a bowel movement within a few hours and pain is increasing she needs to return to the emergency department. All questions were answered She is safe for home discharge at this time Orders Ordered: ED Orders 05/22/19 12:10 US pelvic complete Stat 05/22/19 12:30 Complete Blood Count AUTO DIFF Stat Comprehensive Metabolic Panel Stat Lipase Stat 05/22/19 13:38 CT abdomen pelvis wo con Stat Discontinued Medications Heparin Sodium (Porcine) (Heparin Flush (Port)) 500 unit IV PRN PRN PRN Reason: Flush Last Admin: 05/22/19 15:17 Dose: 500 unit Documented by: FAYE Hydromorphone HCl (Dilaudid) 0.5 mg IV NOW PRN PRN Reason: Pain, Moderate (4-6) Last Admin: 05/22/19 14:13 Dose: 0.5 mg Documented by: NABILAARRINGTO Admin: 05/22/19 13:05 Dose: 0.5 mg Documented by: NABILAARRINGTO Admin: 05/22/19 12:36 Dose: 0.5 mg Documented by: BTONER Sodium Chloride (Normal Saline 0.9%) 1,000 mls @ 150 mls/hr IV CONT SAADIA Last Infusion: 05/22/19 15:18 Dose: 0 mls/hr Documented by: NABILAARRINGTO Admin: 05/22/19 12:37 Dose: 150 mls/hr Documented by: LEONILAONER Magnesium Citrate (Magnesium Citrate) 300 ml PO NOW ONE Stop: 05/22/19 14:56 Last Admin: 05/22/19 15:07 Dose: Not Given Documented by: NABILAARRINGRAVI Magnesium Citrate (Magnesium Citrate) 300 ml PO NOW ONE Stop: 05/22/19 15:07 Last Admin: 05/22/19 15:18 Dose: 300 ml Documented by: FAYE Ondansetron HCl (Zofran) 4 mg IV NOW ONE Stop: 05/22/19 12:11 Last Admin: 05/22/19 12:36 Dose: 4 mg Documented by: AUNDREA Oxycodone/Acetaminophen (Percocet 5/325) 1 tab PO NOW ONE Stop: 05/22/19 14:56 Last Admin: 05/22/19 15:17 Dose: 1 tab Documented by: FAYE Vital Signs Vital signs: Vital Signs - 8 hr 05/22/19 11:55 05/22/19 13:34 05/22/19 14:35 Temperature 98 F Pulse Rate 111 H 83 85 Respiratory Rate 22 11 L 12 Blood Pressure 156/85 H Blood Pressure [Right Arm] 116/55 L 106/52 L Pulse Oximetry 100 99 100 05/22/19 15:19 Temperature Pulse Rate 83 Respiratory Rate 17 Blood Pressure Blood Pressure [Right Arm] 103/50 L Pulse Oximetry 99 MDM - Abdominal Pain Differential Diagnosis Differential diagnosis: Likely abdominal pain, acute appendicitis, calculus of kidney, constipation, diverticulitis and other (Ovarian torsion) Medical Records Attestation: I reviewed the patient's medical records. Lab Data Result diagrams: 05/22/19 12:30 05/22/19 12:30 Labs: Lab Results 05/22/19 05/22/19 Range/Units 12:30 12:30 WBC 7.4 (4.5-11.0) X10^3/uL RBC 4.23 (4.0-5.2) X10^6/uL Hgb 12.3 (12.0-16.0) g/dL Hct 35.4 L (36-46) % MCV 83.7 (80-100) fL MCH 29.1 (26-34) PG MCHC 34.8 (30-36) % RDW 13.9 (11.6-14.8) % Plt Count 194 (150-400) X10^3/uL Neut % (Auto) 66.6 (50-75) % Lymph % (Auto) 23.9 L (25-40) % [place] % (Auto) 7.4 (3-14) % Eos % (Auto) 1.2 L (2-4) % Baso % (Auto) 0.9 (0-2) % Neut # (Auto) 5000 (2244-7742) /uL Lymph # (Auto) 1800 (3090-6071) /uL [place] # (Auto) 600 (0-900) /uL Eos # (Auto) 100 (0-450) /uL Baso # (Auto) 100 (0-100) /uL Sodium 140 (137-145) mmol/L Potassium 3.5 (3.4-5.1) mmol/L Chloride 112 H (98-107) mmol/L Carbon Dioxide 18 L (22-32) mmol/L BUN 12 (7-17) mg/dL Creatinine 0.70 (0.52-1.04) mg/dL Estimated GFR > 60.0 (>60) mL/min BUN/Creatinine Ratio 17.1 (6-22) Glucose 94 (70-100) mg/dL Calcium 9.0 (8.4-10.2) mg/dL Total Bilirubin 0.6 (0.2-1.3) mg/dL AST 23 (14-36) IU/L ALT 15 (<35) IU/L Alkaline Phosphatase 56 (38-126) U/L Total Protein 6.6 (6.3-8.2) g/dL Albumin 4.2 (3.5-5.0) g/dL Globulin 2.4 (1.7-4.1) g/dL Albumin/Globulin Ratio 1.8 (1.0-2.8) Lipase 76 (23-300) U/L Point of care testing: Point of Care Testing Test Results Negative Urine Dip Bedside Urine Glucose Negative Bedside Urine Bilirubin - Negative Bedside Urine Ketone - Negative Urine Specific [place] 1.015 Bedside Urine Occult Blood - Negative Bedside Urine pH 6.0 Bedside Urine Protein - Negative Bedside Urine Urobilinogen - Negative Bedside Urine Nitrite - Negative Imaging Data CT scan - abdomen: Attestation: I personally reviewed and interpreted this imaging study as follows: My impression: There does appear to be a moderate amount of stool in the right colon this could be contributing to the overall pain. Radiologist's impression: IMPRESSION: 1. No acute intra-abdominal abnormality to correlate with patient's right lower quadrant pain. Specifically, no evidence of appendicitis, nephrolithiasis, or obstructive uropathy. 2. Minimal free fluid in the pelvis appears within physiologic limits. Dictated by: Jesus Winn M.D. on 05/22/2019 at 13:18 Discharge Plan Departure Patient Disposition: Home Clinical Impression: Abdominal pain, Constipation Discharge Date/Time: 05/22/19 15:29 Instructions: DI for Abdominal Pain-Adult Activity Restrictions/Additional Instructions: Thank you for coming in today. The degree and severity of your abdominal pain certainly warranted emergency room evaluation. At this point you have had a very thorough workup that does not show any evidence of life-threatening issues, no ovarian torsion, no appendicitis, no abscess, no twisted colon and no reason to need surgery, antibiotics or hospital admission. We did briefly talk about the increased amount of stool in the right side of your colon. It may be that that is causing much of ear pain and issue. I am suggesting that you try a bottle of magnesium citrate to clean her bowels and see if this resolves the pain. If things are not getting better, if you still have not had a bowel movement within number of hours after the magnesium citrate or if the pain continues to be this severe it is appropriate to return to the emergency room for further evaluation. Sometimes abdominal pain simply takes time to evolve to the point that we can make a firm diagnosis. I wish you the very best Prescriptions: No Action omeprazole 20 MG capsule,delayed release(DR/EC) 20 mg PO BID Qty: 0 RF: 0 hydroxychloroquine [Plaquenil] 200 MG tablet 200 mg PO BIDCC Qty: 0 RF: 0 epinephrine 0.3 mg/0.3 mL auto-injector 1 dose IM PRN PRN (Reason: Allergic Reaction) RF: 0 melatonin 5 mg Tablet 5 mg PO BEDTIME PRN (Reason: Sleep) RF: 0 belimumab [Benlysta] 200 mg/mL Syringe 960 mg SUBCUT Q4W RF: 0 Vitamin B-2 200 mg 200 mg PO BID RF: 0 albuterol sulfate 2.5 mg /3 mL (0.083 %) solution for nebulization 2.5 mg INHALATION Q4-6H PRN (Reason: wheezing ) Qty: 75 RF: 0 ondansetron 4 mg tablet,disintegrating 4 mg PO BID-TID PRN (Reason: nausea and vomiting) Qty: 10 RF: 0 fluconazole [Diflucan] 200 mg tablet 200 mg PO DAILY Qty: 5 RF: 0 ondansetron HCl [Zofran] 4 mg tablet 4 mg PO Q8-12H PRN (Reason: nausea and vomiting) Qty: 30 RF: 0 Referrals: Taqueria Crow CNP [Primary Care Provider] -
--- NOTE | 2019-05-22 12:10 | DI.US.S_ITS ---
PROCEDURE: US PELVIC COMPLETE INDICATIONS: ACUTE RLQ PAIN, CONCERN FOR APPENDICITIS, OVARIAN TORSION TECHNIQUE: Real-time scanning was performed of the pelvic organs, with image documentation. Additional endovaginal scanning was necessary due to incomplete visualization of the adnexal and endometrial structures by transabdominal scanning. COMPARISON: [facility], CT, CT KIDNEY URETER BLADDER (KUB), 06/07/2018, 15:01. [facility], CT, CT ABDOMEN PELVIS WO CON, 05/22/2019, 13:54. FINDINGS: Transabdominal scanning: Limited scanning through the kidneys shows no hydronephrosis. There is minimal free fluid in the pelvis which appears within physiologic limits. The appendix was not visualized sonographically in the right lower quadrant. Endovaginal scanning: Uterus: Uterus is normal in size at 8.3 x 3.4 x 4.7 cm. The endometrium measures 0.9 cm in combined thickness. There are a few small nabothian cysts. Ovaries: The right ovary measures 2.9 x 2.4 x 3.1 cm and the left ovary measures 3.9 x 2.2 x 2.1 cm. There are a few small follicles bilaterally. A mildly prominent left ovarian cyst measuring up to 2.1 cm is demonstrated with fine internal septations or debris suggestive of a hemorrhagic cyst. There is patent arterial flow demonstrated in the right and left ovaries. IMPRESSION: 1. No definite evidence of ovarian torsion at this time. 2. Slightly complex left ovarian cyst suggestive of a hemorrhagic cyst. Dictated by: Jesus Winn M.D. on 05/22/2019 at 13:23 Approved by: Jesus Winn M.D. on 05/22/2019 at 13:29
[2019-05-22] MEDS: HYDROMORPHONE 0.5 MG INJ IV ×3 (12:36→14:13)
[2019-05-22] MEDS: ONDANSETRON 4 MG/2 ML INJ IV (12:36)
[2019-05-22] MEDS: SODIUM CHLORIDE 0.9% 1,000 ML 150 ML IV (12:37)
[2019-05-22 12:50] LABS: Basophils Absolute Auto 100 /uL (0-100); Basophils Percent Auto 0.9 % (0-2); Eosinophils Absolute Auto 100 /uL (0-450); Eosinophils Percent Auto 1.2 % (2-4); Hematocrit 35.4 % (36-46); Hemoglobin 12.3 g/dL (12.0-16.0); Lymphocytes Absolute Auto 1800 /uL (1100-4500); Lymphocytes Percent Auto 23.9 % (25-40); Mean Corpuscular HGB Conc 34.8 % (30-36); Mean Corpuscular Hemoglobin 29.1 PG (26-34); Mean Corpuscular Volume 83.7 fL (80-100); Monocytes Absolute Auto 600 /uL (0-900); Monocytes Percent Auto 7.4 % (3-14); Neutrophils Absolute Auto 5000 /uL (1500-7000); Neutrophils Percent Auto 66.6 % (50-75); Platelet Count 194 X10^3/uL (150-400); Red Blood Cell Count 4.23 X10^6/uL (4.0-5.2); Red Cell Distribution Width 13.9 % (11.6-14.8); White Blood Cell Count 7.4 X10^3/uL (4.5-11.0)
[2019-05-22 13:14] LABS: Alanine Aminotransferase 15 IU/L (<35); Albumin 4.2 g/dL (3.5-5.0); Albumin Globulin Ratio 1.8 (1.0-2.8); Alkaline Phosphatase 56 U/L (38-126); Aspartate Aminotransferase 23 IU/L (14-36); BUN Creatinine Ratio 17.1 (6-22); Bilirubin Total 0.6 mg/dL (0.2-1.3); Blood Urea Nitrogen 12 mg/dL (7-17); Carbon Dioxide 18 mmol/L (22-32); Chloride 112 mmol/L (98-107); Estimated Glomerular Filt Rate > 60.0 mL/min (>60); Globulin 2.4 g/dL (1.7-4.1); Glucose 94 mg/dL (70-100); HEMOLYSIS < 15 (0-50); Lipase 76 U/L (23-300); Potassium 3.5 mmol/L (3.4-5.1); Sodium 140 mmol/L (137-145); Total Protein 6.6 g/dL (6.3-8.2)
[2019-05-22 13:26] LABS: Add Manual Diff / Slide Review NO
[2019-05-22 13:34] VITALS: BP 116/55; PULSE 83; RESP 11; O2SAT 99
--- NOTE | 2019-05-22 13:38 | DI.CT.S_ITS ---
PROCEDURE: CT ABDOMEN PELVIS WO CON INDICATIONS: severe RLQ pain, ? stone/appy (-US) TECHNIQUE: Noncontrast 5 mm thick sections acquired from the diaphragms to the symphysis. 5 mm coronal and sagittal reformats were then performed. For radiation dose reduction, the following was used: automated exposure control, adjustment of mA and/or kV according to patient size. COMPARISON: [facility], CT, CT KIDNEY URETER BLADDER (KUB), 06/07/2018, 15:01. [facility], US, US PELVIC COMPLETE, 05/22/2019, 12:51. FINDINGS: Image quality: Excellent. ABDOMEN: Lung bases: Lung bases are clear. Heart size is normal. Solid organs: Noncontrast evaluation of the liver demonstrates no focal hepatic lesions. Gallbladder is surgically absent. Pancreas is normal in contours without peripancreatic fat stranding or fluid collections. Spleen is normal in size. No adrenal nodules. Kidneys demonstrate no hydronephrosis. No renal stones. Peritoneum and bowel: Unenhanced bowel loops demonstrate normal wall thickness and caliber. The appendix is normal in appearance. There is minimal free fluid in the pelvis which appears within physiologic limits. No free air. Nodes and vessels: No retroperitoneal or mesenteric adenopathy by size criteria. Aorta and inferior vena cava are normal in caliber. Miscellaneous: No ventral hernias. PELVIS: Genitourinary: Bladder wall thickness is normal. The uterus and ovaries appear within normal size limits for age. There is a small amount of endometrial fluid. Miscellaneous: No inguinal hernias or adenopathy. Bones: No suspicious bony lesions. No vertebral body compression fractures. IMPRESSION: 1. No acute intra-abdominal abnormality to correlate with patient's right lower quadrant pain. Specifically, no evidence of appendicitis, nephrolithiasis, or obstructive uropathy. 2. Minimal free fluid in the pelvis appears within physiologic limits. Dictated by: Jesus Winn M.D. on 05/22/2019 at 13:18 Approved by: Jesus Winn M.D. on 05/22/2019 at 13:22
[2019-05-22 14:35] VITALS: BP 106/52; PULSE 85; RESP 12; O2SAT 100
[2019-05-22] MEDS: OXYCODONE/ACETAMINOPHEN 5/325 TABLET 1 TAB PO (15:17)
[2019-05-22] MEDS: MAGNESIUM CITRATE 300 ML SOLUTION PO (15:18)
[2019-05-22 15:19] VITALS: BP 103/50; PULSE 83; RESP 17; O2SAT 99
== END 2019-05-22 15:29 | disposition home or self-care (01) ==
PROVIDERS: Emergency Provider Emergency Medicine; PCP Registered Nurse Diabetes Educator
DX: R10.9 Unspecified abdominal pain (principal); K59.00 Constipation, unspecified
CPT/HCPCS: 36415; 74176; 76830; 76856; 80053; 81003; 81025; 83690; 85025; 96374; 96375; 96376; 99284; J1170; J1642; J2405

== ENCOUNTER 2019-05-22 22:10 | Emergency (ER) | payer OTHER, SELFPAY ==
[2019-05-22 23:12] VITALS: BP 116/80; PULSE 86; RESP 20; TEMP 37; O2SAT 100; BMI 43.0
[2019-05-23 00:02] LABS: Add Manual Diff / Slide Review NO; Basophils Absolute Auto 100 /uL (0-100); Basophils Percent Auto 0.6 % (0-2); Eosinophils Absolute Auto 100 /uL (0-450); Eosinophils Percent Auto 0.9 % (2-4); Hematocrit 36.5 % (36-46); Hemoglobin 12.6 g/dL (12.0-16.0); Lymphocytes Absolute Auto 1700 /uL (1100-4500); Mean Corpuscular HGB Conc 34.5 % (30-36); Mean Corpuscular Hemoglobin 29.2 PG (26-34); Mean Corpuscular Volume 84.6 fL (80-100); Monocytes Absolute Auto 500 /uL (0-900); Neutrophils Absolute Auto 6700 /uL (1500-7000); Neutrophils Percent Auto 74.5 % (50-75); Platelet Count 204 X10^3/uL (150-400); Red Blood Cell Count 4.31 X10^6/uL (4.0-5.2); Red Cell Distribution Width 13.7 % (11.6-14.8); White Blood Cell Count 8.9 X10^3/uL (4.5-11.0)
[2019-05-23 00:09] LABS: Alanine Aminotransferase 17 IU/L (<35); Albumin 4.5 g/dL (3.5-5.0); Albumin Globulin Ratio 1.7 (1.0-2.8); Alkaline Phosphatase 56 U/L (38-126); Aspartate Aminotransferase 25 IU/L (14-36); BUN Creatinine Ratio 15.7 (6-22); Bilirubin Total 0.6 mg/dL (0.2-1.3); Blood Urea Nitrogen 11 mg/dL (7-17); Carbon Dioxide 20 mmol/L (22-32); Chloride 108 mmol/L (98-107); Estimated Glomerular Filt Rate > 60.0 mL/min (>60); Globulin 2.7 g/dL (1.7-4.1); Glucose 87 mg/dL (70-100); HEMOLYSIS < 15 (0-50); Lipase 59 U/L (23-300); Potassium 3.6 mmol/L (3.4-5.1); Sodium 137 mmol/L (137-145); Total Protein 7.2 g/dL (6.3-8.2)
--- NOTE | 2019-05-23 00:19 | ED.ABDPAIN ---
HPI - Abdominal Pain General Chief Complaint: Abdominal Pain Stated Complaint: abdominal pain Time Seen by Provider: 05/23/19 00:18 Source: patient Mode of arrival: Ambulatory Limitations: no limitations History of Present Illness HPI narrative: This is a 33-year-old female who comes in with complaint of abdominal pain patient was seen here earlier today had in valuation including labs, CT and ultrasound noting findings were a possible hemorrhagic cyst on the left. Patient states that she went home she did have some vomiting. She has had some continuing pain on the right side sort of radiating upwards. She states it starts in the pelvic area. It began in the right lower quadrant and continues to stay there. Patient states she has been having bowel movements although they've been soft sort liquidy. She has not noticed any melena or bright red blood. She has been afebrile. She states she has had some frequency, no urgency. No hematuria. No flank pain. Patient states she has had ovarian cyst in the past and the pain was somewhat similar but this seems worse today. She does have a history of lupus and has a port in place for her treatments. Related Data Home Medications Medication Instructions Recorded Confirmed hydroxychloroquine [Plaquenil] 200 mg PO BIDCC #0 02/28/17 06/07/18 omeprazole 20 mg PO BID #0 02/28/17 06/07/18 Vitamin B-2 200 mg PO BID 03/20/18 06/07/18 belimumab [Benlysta] 960 mg SUBCUT Q4W 03/20/18 06/07/18 epinephrine 1 dose IM PRN PRN 03/20/18 06/07/18 melatonin 5 mg PO BEDTIME PRN 03/20/18 06/07/18 Previous Rx's Medication Instructions Recorded albuterol sulfate 2.5 mg INHALATION Q4-6H PRN #75 ml 03/20/18 ondansetron 4 mg PO BID-TID PRN #10 tab 06/05/18 fluconazole [Diflucan] 200 mg PO DAILY #5 tab 06/08/18 ondansetron HCl [Zofran] 4 mg PO Q8-12H PRN #30 tab 06/08/18 Allergies Allergy/AdvReac Type Severity Reaction Status Date / Time amoxicillin [AMOXICILLIN] Allergy Unknown Verified 05/22/19 23:12 betamethasone [BETAMETHASONE] Allergy Unknown Anaphylaxis Verified 05/22/19 23:12 clarithromycin [From BIAXIN] Allergy Unknown Verified 05/22/19 23:12 coconut [COCONUT] Allergy Unknown Verified 05/22/19 23:12 Iodinated Contrast Media Allergy Unknown Anaphylaxis Verified 05/22/19 23:12 [IODINATED CONTRAST- ORAL AND IV DYE] peanut [PEANUT] Allergy Unknown Verified 05/22/19 23:12 Penicillins [PENICILLINS] Allergy Unknown Verified 05/22/19 23:12 pineapple [PINEAPPLE] Allergy Unknown Verified 05/22/19 23:12 shellfish derived Allergy Unknown Verified 05/22/19 23:12 [SHELLFISH DERIVED] diphenhydramine AdvReac Verified 05/22/19 23:12 [From Benadryl] Review of Systems Review of Systems ROS Unobtainable: All systems reviewed & are unremarkable except as noted in HPI and below Patient History Social History household members: spouse Smoking Status: Never smoker alcohol intake: never Smoking Status: Never smoker alcohol intake frequency: holidays/special occasions only Substance Use Type: does not use Exam Narrative Exam Narrative: GENERAL: Alert and oriented x three, obese female in moderate distress. HEENT: Head normocephalic, atraumatic, EOMI, pupils reactive, face symmetric, moist mucous membranes NECK: Supple, full range of motion CARDIOVASCULAR: Regular rate and rhythm without murmurs, rubs or gallops. RESPIRATORY: Breath sounds equal bilaterally, no wheezes rales or rhonchi. ABDOMEN: Soft, positive for right lower quadrant tenderness. Normoactive bowel sounds all 4 quadrants. No guarding or rebound, rigidity, no mass : No CVA tenderness EXTREMITIES: Normal range of motion, no clubbing or edema. Neurovascularly intact NEUROLOGICAL: Cranial nerves II through XII grossly intact. Moving all extremities SKIN: Warm, dry, no petechiae, no rashes or lesions. Initial Vital Signs Initial Vital Signs: Vital Signs Temperature 98.6 F 05/22/19 23:12 Pulse Rate 86 05/22/19 23:12 Respiratory Rate 20 05/22/19 23:12 Blood Pressure 116/80 05/22/19 23:12 Pulse Oximetry 100 05/22/19 23:12 Course Orders Ordered: ED Orders 05/22/19 23:45 Complete Blood Count AUTO DIFF Stat Comprehensive Metabolic Panel Stat Lipase Stat 05/23/19 00:30 US pelvic limited Stat Discontinued Medications Hydrocodone Bitart/Acetaminophen (Vicodin 5/325 Prepack) 1 bottle MISC SEEINSTR ONE Stop: 05/23/19 03:10 Last Admin: 05/23/19 03:17 Dose: 1 bottle Documented by: JANNETTE Sodium Chloride (Normal Saline 0.9%) 1,000 mls @ 1,000 mls/hr IV BOLUS ONE Stop: 05/23/19 01:29 Last Admin: 05/23/19 03:21 Dose: Not Given Documented by: JANNETTE Ketorolac Tromethamine (Toradol) 30 mg IV NOW ONE Stop: 05/23/19 00:31 Last Admin: 05/23/19 03:21 Dose: Not Given Documented by: JANNETTE Ketorolac Tromethamine (Toradol) 60 mg IM NOW ONE Stop: 05/23/19 01:54 Last Admin: 05/23/19 01:57 Dose: 60 mg Documented by: JANNETTE Ondansetron HCl (Zofran Odt) 4 mg SL NOW ONE Stop: 05/23/19 00:31 Last Admin: 05/23/19 00:40 Dose: 4 mg Documented by: REYNALDO Ondansetron HCl (Zofran Odt Prepack) 1 bottle MISC SEEINSTR ONE Stop: 05/23/19 03:10 Last Admin: 05/23/19 03:17 Dose: 1 bottle Documented by: JANNETTE Vital Signs Vital signs: Vital Signs - 8 hr 05/22/19 23:12 05/23/19 03:17 Temperature 98.6 F 97.9 F Pulse Rate 86 71 Respiratory Rate 20 16 Blood Pressure 116/80 110/52 L Pulse Oximetry 100 97 MDM - Abdominal Pain Lab Data Attestation: I reviewed the patient's lab results. Result diagrams: 05/22/19 23:45 05/22/19 23:45 Labs: Lab Results 05/22/19 05/22/19 Range/Units 23:45 23:45 WBC 8.9 (4.5-11.0) X10^3/uL RBC 4.31 (4.0-5.2) X10^6/uL Hgb 12.6 (12.0-16.0) g/dL Hct 36.5 (36-46) % MCV 84.6 (80-100) fL MCH 29.2 (26-34) PG MCHC 34.5 (30-36) % RDW 13.7 (11.6-14.8) % Plt Count 204 (150-400) X10^3/uL Neut % (Auto) 74.5 (50-75) % Lymph % (Auto) 19.0 L (25-40) % [place] % (Auto) 5.0 (3-14) % Eos % (Auto) 0.9 L (2-4) % Baso % (Auto) 0.6 (0-2) % Neut # (Auto) 6700 (1463-1769) /uL Lymph # (Auto) 1700 (8426-4389) /uL [place] # (Auto) 500 (0-900) /uL Eos # (Auto) 100 (0-450) /uL Baso # (Auto) 100 (0-100) /uL Sodium 137 (137-145) mmol/L Potassium 3.6 (3.4-5.1) mmol/L Chloride 108 H (98-107) mmol/L Carbon Dioxide 20 L (22-32) mmol/L BUN 11 (7-17) mg/dL Creatinine 0.70 (0.52-1.04) mg/dL Estimated GFR > 60.0 (>60) mL/min BUN/Creatinine Ratio 15.7 (6-22) Glucose 87 (70-100) mg/dL Calcium 9.0 (8.4-10.2) mg/dL Total Bilirubin 0.6 (0.2-1.3) mg/dL AST 25 (14-36) IU/L ALT 17 (<35) IU/L Alkaline Phosphatase 56 (38-126) U/L Total Protein 7.2 (6.3-8.2) g/dL Albumin 4.5 (3.5-5.0) g/dL Globulin 2.7 (1.7-4.1) g/dL Albumin/Globulin Ratio 1.7 (1.0-2.8) Lipase 59 (23-300) U/L Imaging Data CT scan - abdomen: Radiologist's impression: Ania Dejesus F 1985 [address] [address] [address] Scan Report Signed Patient: Ania Dejesus RMR#: [id number] : 1985Acct:[id number] Age/Sex: 33 / FDate of Service: 05/22/19 Loc: ED Accession Number: [id number] Procedure: CT abdomen pelvis wo con Ordering Provider: Mulu Alvarado MD PROCEDURE: CT ABDOMEN PELVIS WO CON INDICATIONS: severe RLQ pain, ? stone/appy (-US) TECHNIQUE: Noncontrast 5 mm thick sections acquired from the diaphragms to the symphysis. 5 mm coronal and sagittal reformats were then performed. For radiation dose reduction, the following was used: automated exposure control, adjustment of mA and/or kV according to patient size. COMPARISON: [facility], CT, CT KIDNEY URETER BLADDER (KUB), 06/07/2018, 15:01. [facility], US, US PELVIC COMPLETE, 05/22/2019, 12:51. FINDINGS: Image quality: Excellent. ABDOMEN: Lung bases: Lung bases are clear. Heart size is normal. Solid organs: Noncontrast evaluation of the liver demonstrates no focal hepatic lesions. Gallbladder is surgically absent. Pancreas is normal in contours without peripancreatic fat stranding or fluid collections. Spleen is normal in size. No adrenal nodules. Kidneys demonstrate no hydronephrosis. No renal stones. Peritoneum and bowel: Unenhanced bowel loops demonstrate normal wall thickness and caliber. The appendix is normal in appearance. There is minimal free fluid in the pelvis which appears within physiologic limits. No free air. Nodes and vessels: No retroperitoneal or mesenteric adenopathy by size criteria. Aorta and inferior vena cava are normal in caliber. Miscellaneous: No ventral hernias. PELVIS: Genitourinary: Bladder wall thickness is normal. The uterus and ovaries appear within normal size limits for age. There is a small amount of endometrial fluid. Miscellaneous: No inguinal hernias or adenopathy. Bones: No suspicious bony lesions. No vertebral body compression fractures. IMPRESSION: 1. No acute intra-abdominal abnormality to correlate with patient's right lower quadrant pain. Specifically, no evidence of appendicitis, nephrolithiasis, or obstructive uropathy. 2. Minimal free fluid in the pelvis appears within physiologic limits. Dictated by: Jesus Winn M.D. on 05/22/2019 at 13:18 Approved by: Jesus Winn M.D. on 05/22/2019 at 13:22 pelvic US: Radiologist's impression: prelim-cyst appears slightly more changed consistent with hemorrhagic, slight increase in free fluid with debris. 2.5 by 2.1 x 2.4 complex cystic lesion left ovary increased in size. EBL left 0 very a has increased in size and heterogeneity may be hemorrhagic or infected functional cyst. Recommend follow-up in 6-8 weeks. MDM Narrative Medical decision making narrative: Discussed with patient she does have right lower quadrant tenderness, she has been afebrile. She has been increasingly nauseated. Patient states she has had ovarian cysts in the she does have 1 ultrasound although it's more on the left and is slightly complex suggesting hemorrhagic cyst. Patient's labs this evening white count, chloride is slightly elevated 108 with a CO2 of 20. Creatinine is normal with otherwise normal LFTs. At patient's earlier visit today was negative for as well as nitrates. No micro was performed. Patient denied discussed that I am hesitant to repeat CT imaging this evening as it's less than 12 hours and she is agreeable to hold off on CT imaging. Plan for some Toradol for pain, Zofran and repeat ultrasound. We did discuss that there was a cyst that may be hemorrhagic although this was more on the left potentially if patient had some blood in the peritoneal this could cause some her pain. Patient is comfortable with this plan for repeat evaluation. Patient ultrasound does show slightly increased size of cyst and is suspicious for hemorrhagic cyst. We discussed the patient's pain could be secondary to blood in the peritoneum which can be quite irritating. The cyst itself is on the left side is less likely to be the cause of her right-sided abdominal pain. Patient states she has had this in the past states been a long time but this is not entirely surprising to her she did have some improvement with Toradol for her pain. Plan for short course of Zofran and [place] with pre packs patient and I discussed return precautions. She is also aware that she needs repeat imaging in 6-8 weeks as this is does appear complex needs to be followed to make sure that has resolved and does not need further intervention. We did discuss that we did not reimage the appendix today and that she is aware of this. Discharge Plan Departure Patient Disposition: Home Clinical Impression: Ovarian cyst, Abdominal pain Discharge Date/Time: 05/23/19 03:17 Instructions: DI for Abdominal Pain-Adult Activity Restrictions/Additional Instructions: Follow-up with primary care in the next 2-3 days for recheck. Call for an appointment. Your imaging earlier today and this evening does show a cyst on the left with some fluid that is suspicious for a hemorrhagic cyst. Blood in the peritoneum or abdomen can be quite painful. I suspect this is what's causing your pain this evening. It is recommended that you have repeat imaging in 6-8 weeks for re-evaluation to rule out other causes than a hemorrhagic cyst. Take medication as prescribed. This medication can make you sleepy do not drive, perform hazardous activities or make any major decisions while taking it. I do recommend you take a stool each time you take the narcotic pain medication as it will make you constipated. Return for fevers greater 100.4 F, persistent vomiting, rapidly worsening pain, passing out, black or bloody stools, new flank or pelvic pain or other new or concerning symptoms. Prescriptions: No Action omeprazole 20 MG capsule,delayed release(DR/EC) 20 mg PO BID Qty: 0 RF: 0 hydroxychloroquine [Plaquenil] 200 MG tablet 200 mg PO BIDCC Qty: 0 RF: 0 epinephrine 0.3 mg/0.3 mL auto-injector 1 dose IM PRN PRN (Reason: Allergic Reaction) RF: 0 melatonin 5 mg Tablet 5 mg PO BEDTIME PRN (Reason: Sleep) RF: 0 belimumab [Benlysta] 200 mg/mL Syringe 960 mg SUBCUT Q4W RF: 0 Vitamin B-2 200 mg 200 mg PO BID RF: 0 albuterol sulfate 2.5 mg /3 mL (0.083 %) solution for nebulization 2.5 mg INHALATION Q4-6H PRN (Reason: wheezing ) Qty: 75 RF: 0 ondansetron 4 mg tablet,disintegrating 4 mg PO BID-TID PRN (Reason: nausea and vomiting) Qty: 10 RF: 0 fluconazole [Diflucan] 200 mg tablet 200 mg PO DAILY Qty: 5 RF: 0 ondansetron HCl [Zofran] 4 mg tablet 4 mg PO Q8-12H PRN (Reason: nausea and vomiting) Qty: 30 RF: 0 Referrals: Taqueria Crow CNP [Primary Care Provider] -
--- NOTE | 2019-05-23 00:30 | DI.US.S_ITS ---
PROCEDURE: US PELVIC LIMITED INDICATIONS: RIGHT LOWER QUADRANT PAIN, WORSENING TECHNIQUE: Real-time transabdominal scanning was performed of the pelvic organs, with image documentation. COMPARISON: , US, US PELVIC COMPLETE, 05/22/2019, 12:51. , CT, CT ABDOMEN PELVIS WO CON, 05/22/2019, 13:54. FINDINGS: A limited scan was performed. Uterus: Uterus appears within normal size limits. The endometrium measures approximately 0.9 cm. Multiple small nabothian cysts are again noted. Ovaries: The right ovary measures 2.2 x 2.1 x 3.4 cm and the left ovary measures 3.5 x 1.9 x 2.4 cm. There is a hypoechoic cystic structure within the left ovary measuring up to approximately 2.6 x 2.1 x 2.4 cm which appears increased in size from the prior study. There are increased internal echoes. No internal vascularity on color Doppler interrogation. Findings are again suggestive of a hemorrhagic cyst. There is patent arterial and venous flow demonstrated within the ovaries. Other: There is a minimal free fluid in the pelvic cul-de-sac with internal echoes which may represent blood products. No free fluid identified within Morison's pouch. IMPRESSION: 1. Complex left ovarian cyst likely representing a hemorrhagic cyst appears increased in size on the recent ultrasound. 2. No evidence of ovarian torsion. 3. Minimal free fluid in the pelvic cul-de-sac appears within physiologic limits. Internal echoes within the fluid is suggestive of blood product possibly from a ruptured hemorrhagic cyst. Dictated by: Jesus Winn M.D. on 05/23/2019 at 8:32 Approved by: Jesus Winn M.D. on 05/23/2019 at 8:38
[2019-05-23] MEDS: ONDANSETRON 4 MG ODT SL (00:40)
[2019-05-23] MEDS: KETOROLAC 60 MG/2 ML VIAL IM (01:57)
[2019-05-23 03:17] VITALS: BP 110/52; PULSE 71; RESP 16; TEMP 36.6; O2SAT 97
[2019-05-23] MEDS: HYDROCODONE/ACET 5/325 PREPACK 1 BOTTLE MISC (03:17)
[2019-05-23] MEDS: ONDANSETRON 4 MG ODT PREPACK 1 BOTTLE MISC (03:17)
== END 2019-05-23 03:17 | disposition home or self-care (01) ==
PROVIDERS: Emergency Provider Emergency Medicine; PCP Registered Nurse Diabetes Educator
DX: N83.202 Unspecified ovarian cyst, left side (principal); R10.9 Unspecified abdominal pain; R79.89 Other specified abnormal findings of blood chemistry; K59.00 Constipation, unspecified
CPT/HCPCS: 36415; 74176; 76830; 76856; 76857; 80053; 81003; 81025; 83690; 85025; 96372; 96374; 96375; 96376; 99284; J1170; J1642; J1885; J2405

== ENCOUNTER 2019-08-11 11:54 | Emergency (ER) | payer OTHER, SELFPAY ==
[2019-08-11 12:00] VITALS: BP 114/80; PULSE 90; RESP 18; TEMP 36.8; O2SAT 100; BMI 41.0
--- NOTE | 2019-08-11 12:03 | DI.RAD.S_ITS ---
PROCEDURE: XR WRIST RT MIN 3V INDICATIONS: fall pain. + surgery 6 weeks ago TECHNIQUE: 4 views of the wrist were acquired. COMPARISON: [facility], CR, XR WRIST 3+ VIEWS RIGHT, 11/11/2018, 10:59. FINDINGS: Bones: No fractures or dislocations. No suspicious bony lesions. Scaphoid view: No displaced scaphoid fractures. Soft tissues: No suspicious soft tissue calcifications. IMPRESSION: No acute osseous abnormality of the wrist. Dictated by: Farhat Mendoza M.D. on 08/11/2019 at 11:25 Approved by: Farhat Mendoza M.D. on 08/11/2019 at 11:26
[2019-08-11] MEDS: IBUPROFEN 400 MG TABLET 800 MG PO (12:10)
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
== END 2019-08-11 12:52 | disposition home or self-care (01) ==
PROVIDERS: Emergency Provider Nurse Practitioner; PCP Registered Nurse Diabetes Educator
DX: M25.531 Pain in right wrist (principal); W19.XXXA Unspecified fall, initial encounter
CPT/HCPCS: 73110; 99283

== ENCOUNTER 2024-03-09 09:00 | Outpatient (RCR) | payer OTHER, SELFPAY ==
[2023-11-06 10:26] VITALS: BMI 40.8
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
--- NOTE | 2024-02-02 09:05 | PT-OP ANOTE ---
Pt canceled appointment for tomorrow and her next one is scheduled with PT on 02/11/24. She will need a progress note at that time. If that appointment is canceled, may need to re-think plan or consider d/c.
--- NOTE | 2024-02-10 09:16 | PT-OP ANOTE ---
Pt is scheduled for PT with this PT next date. She has not been to PT since 01/14 and has not seen primary PT since 01/12. PT leaves message for pt to remind her about appointment and that she needs to attend it tomorrow d/t not going over 30 days since seeing primary PT. PT asks pt to call back if she needs to cancel tomorrow's appointment. PT leaves message that PT will d/c PT if pt cannot make tomorrow's appointment. Pt had mentioned financial burden at start of therapy course.
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
== END 2024-03-23 14:47 | disposition home or self-care (01) ==
LOC: PHYS 09:00
PROVIDERS: Family Provider Family Medicine; PCP Family Medicine; Referring Provider Family Medicine; Visit Provider Family Medicine
DX: G43.909 Migraine, unspecified, not intractable, without status migrainosus (principal)
CPT/HCPCS: 97110; 97112; 97140; 97161; 97535

== ENCOUNTER 2024-03-09 13:34 | Emergency (ER) | payer OTHER, SELFPAY ==
[2023-11-06 10:26] VITALS: BMI 40.8
[2024-03-09] VITALS (7 sets, daily range): BP systolic 128–134; BP diastolic 67–73; PULSE 83–90; RESP 20; TEMP 36.9; O2SAT 99–100; BMI 43.0
--- NOTE | 2024-03-09 14:16 | ED_ITS ---
HPI - Allergic Reaction General Chief complaint: Allergic Reaction Stated complaint: Allergy Flare up, SOB Time Seen by Provider: 03/09/24 14:16 Source: patient Mode of arrival: Ambulatory History of Present Illness HPI narrative: Patient is a 38-year-old female with history of seizures on Lamictal comes into the ED for diffuse urticarial rash has been ongoing and intermittent for the past 4 weeks, states that she did see urgent care for this when it 1st started was sent home with steroids and Benadryl, she states though that she stopped taking the steroids because she felt like she was having seizures on it. She states that due to persistent symptoms that come into the ED for further evaluation treatment. She denies any difficulty breathing swallowing, at evaluation speaking full sentences protecting airway no voice changes no stridor. States no new exposures no recent travel. States that she has not seen an cartridge gauger and ?15 years. She also states that Benadryl causes a paradoxical reaction, causes her to be agitated. Related Data Home Medications Medication Instructions Recorded Confirmed hydroxychloroquine 200 mg tablet 400 mg PO DAILY ##0 02/28/17 12/03/23 (Plaquenil) epinephrine 0.3 mg/0.3 mL 1 dose IM PRN PRN Allergic Reaction 03/20/18 12/03/23 injection, auto-injector melatonin 5 mg tablet 5 mg PO BEDTIME PRN Sleep 03/20/18 12/03/23 buspirone 10 mg tablet 10 mg PO BID 12/03/23 12/03/23 cyclobenzaprine 5 mg tablet 5 mg PO BID 12/03/23 12/03/23 Previous Rx's Medication Instructions Recorded albuterol sulfate 2.5 mg/3 mL 2.5 mg (3 mL) inhalation Q4-6H PRN 03/20/18 (0.083 %) solution for nebulization wheezing #75 mL Hibiclens swab See Rx Instructions topical 12/03/23 MONTHLY infusion port flush #25 units [facility] PI SLT Surgical Gloves See Rx Instructions .Route 12/03/23 .COMPLEX #1 packet mccain safety needles (disp.) 22 x #50 ea 12/03/23 3/4 lamotrigine 150 mg tablet 150 mg PO DAILY #90 tabs 12/03/23 (Lamictal) lamotrigine 200 mg tablet 200 mg PO .QHS #90 tabs 12/03/23 ondansetron 4 mg disintegrating 4 mg PO Q8H PRN nausea and 12/03/23 tablet vomiting #20 tabs sodium chloride 0.9 % (flush) 20 ml IV DAILY infusion port flush 12/03/23 #240 mL Allergies Allergy/AdvReac Type Severity Reaction Status Date / Time peanut [PEANUT] Allergy Severe Anaphylaxis Verified 12/03/23 15:35 amoxicillin [AMOXICILLIN] Allergy Unknown Verified 08/11/19 12:03 betamethasone [BETAMETHASONE] Allergy Unknown Anaphylaxis Verified 08/11/19 12:03 clarithromycin [From BIAXIN] Allergy Unknown Verified 08/11/19 12:03 coconut [COCONUT] Allergy Unknown Verified 08/11/19 12:03 Iodinated Contrast Media Allergy Unknown Anaphylaxis Verified 08/11/19 12:03 [IODINATED CONTRAST- ORAL AND IV DYE] Penicillins [PENICILLINS] Allergy Unknown Verified 08/11/19 12:03 pineapple [PINEAPPLE] Allergy Unknown Verified 08/11/19 12:03 shellfish derived Allergy Unknown Verified 08/11/19 12:03 [SHELLFISH DERIVED] diphenhydramine AdvReac Verified 08/11/19 12:03 [From Benadryl] Review of Systems Review of Systems Narrative: HEENT: Denies headache, eye drainage, eye irritation, head trauma, sore throat, voice change Cardiovascular: Denies any chest pain, palpitations, shortness of breath, tachycardia Respiratory: Denies any shortness of breath, cough, wheeze, stridor GI/: Denies any abdominal pain, nausea, vomiting, diarrhea, bright red blood per rectum, melanotic stools, urinary frequency, urinary retention, dysuria, hematuria MSK: Denies any joint pain, muscle pains, swelling Skin: Positive urticarial rash Neuro: Denies any headache, lightheadedness, dizziness, fainting, weakness Psych: Denies SI/HI Patient History Medical History (Updated 12/03/23 @ 17:36 by Patrick Sawyer MD) Nausea and vomiting Myocardial infarction Chest pain Lupus Palpitations Seizure disorder Migraines Asthma Port-A-Cath in place Surgical History S/P matrixectomy of toe of right foot S/P matrixectomy of toe of left foot Hx of knee surgery Hx of cholecystectomy Social History household members: spouse Smoking Status: Never smoker alcohol intake: never Smoking Status: Never smoker alcohol intake frequency: holidays/special occasions only Substance Use Type: does not use Exam Narrative Exam Narrative: General: Cooperative, comfortable, well-developed, not in acute distress HEENT: Normocephalic, atraumatic, PERRLA, normal sclera, eyelids normal, speaking full sentences protecting airway no voice changes no stridor no trismus Neck: Active full range of motion, atraumatic Chest: Normal to inspection, negative crepitus, no overlying erythema ecchymosis Respiratory: Normal respiratory effort, not in acute respiratory distress, clear to auscultation bilaterally negative cough, wheeze, tachypnea, rhonchi, rales Cardiology: Regular rate rhythm negative gallop, murmur, rubs GI/: Normal to inspection, soft, nonrigid, no tenderness to palpation, exam deferred MSK: Full range of active range of motion of all 4 extremities, atraumatic Skin: Diffuse urticarial rash to the upper and lower extremities, spares palms soles spared mucosal membrane Neuro: Alert awake oriented x3, moves all 4 extremities spontaneously, cranial nerves intact, able to answer all questions appropriately follows commands appropriately Psych: Cooperative, negative suicidal or homicidal ideations Initial Vital Signs Initial Vital Signs: Vital Signs Temperature 98.4 F 03/09/24 13:38 Pulse Rate 90 03/09/24 13:38 Respiratory Rate 20 03/09/24 13:38 Blood Pressure 134/73 03/09/24 13:38 Pulse Oximetry 100 03/09/24 13:38 Oxygen Delivery Method Room Air 03/09/24 13:38 Course Orders Ordered: ED Orders 03/09/24 15:15 BMP [Basic Metabolic Panel] Stat CBC Auto Diff [Complete Blood Count AUTO DIFF] Stat Famotidine (Famotidine 20 Mg/2 Ml Vial) 20 mg IV NOW SAADIA Last Admin: 03/09/24 14:43 Dose: 20 mg Documented By: KB Discontinued Medications Loratadine (Loratadine 10 Mg Tablet) 10 mg PO NOW ONE Stop: 03/09/24 14:28 Last Admin: 03/09/24 14:41 Dose: 10 mg Documented By: TARUN Vital Signs Vital signs: Vital Signs - 8 hr 03/09/24 13:38 03/09/24 14:04 03/09/24 14:04 Temperature 98.4 F Pulse Rate 90 88 Respiratory Rate 20 Blood Pressure 134/73 130/72 Pulse Oximetry 100 100 Oxygen Delivery Method Room Air 03/09/24 14:30 03/09/24 15:00 03/09/24 15:30 Temperature Pulse Rate 88 86 83 Respiratory Rate Blood Pressure Pulse Oximetry 99 100 100 Oxygen Delivery Method MDM - Allergic Reaction Differential Diagnosis Differential diagnosis: Likely anaphylaxis, allergic reaction, contact dermatitis and urticaria Lab Data 03/09/24 15:15 03/09/24 15:15 Labs: Lab Results 03/09/24 Range/Units 15:15 WBC 6.7 (4.5-11.0) X10^3/uL RBC 4.34 (4.0-5.2) X10^6/uL Hgb 13.1 (12.0-16.0) g/dL Hct 38.0 (36-46) % MCV 87.5 (80-100) fL MCH 30.3 (26-34) PG MCHC 34.6 (30-36) % RDW 13.2 (11.6-14.8) % Plt Count 200 (150-400) X10^3/uL Neut % (Auto) 75.0 (50-75) % Lymph % (Auto) 19.1 L (25-40) % [place] % (Auto) 4.7 (3-14) % Eos % (Auto) 0.9 L (2-4) % Baso % (Auto) 0.3 (0-2) % Neut # (Auto) 5000 (1150-7821) /uL Lymph # (Auto) 1300 (7000-9745) /uL [place] # (Auto) 300 (0-900) /uL Eos # (Auto) 100 (0-450) /uL Baso # (Auto) 0 (0-100) /uL Sodium 138 (137-145) mmol/L Potassium 3.9 (3.4-5.1) mmol/L Chloride 105 (98-107) mmol/L Carbon Dioxide 24 (22-32) mmol/L BUN 11 (7-17) mg/dL Creatinine 0.68 (0.52-1.04) mg/dL Estimated GFR > 60 (>60) mL/min BUN/Creatinine Ratio 16.2 (6-22) Glucose 112 H (70-100) mg/dL Calcium 8.8 (8.4-10.2) mg/dL MDM Narrative Medical decision making narrative: Patient is a 38-year-old female history of seizures presents for her Keri rash, states that this has been ongoing persistent for the past month, states that steroids and Benadryl do normally help however the steroids do cause her to have seizures therefore she has not been taking this. She also states that when she would however she takes Benadryl she has a paradoxical reaction with agitation. She has not having any difficulty breathing no voice changes no stridor no trismus. Lab work was unremarkable, symptoms did improve after administration of fluids, Pepcid, loratadine. Patient will be instructed to follow up with cartridge gauger and PCP in outpatient setting. She states that she still has EpiPen at home. Discharge Plan Departure Prescriptions: No Action buspirone 10 mg tablet 10 mg PO BID [facility] PI SLT Surgical Gloves See Rx Instructions .ROUTE .COMPLEX Qty: 1 0RF Rx Instructions: Use with infusion port flush; (DME) mccain safety needles (disp.) 22 x 3/4 needle See Rx Instructions .Route Qty: 50 0RF Rx Instructions: As directed sodium chloride 0.9 % (flush) Syringe 20 ml IV DAILY Qty: 240 3RF Rx Instructions: administer 20ml monthly for infusion port flush Hibiclens swab See Rx Instructions topical MONTHLY Qty: 25 3RF Rx Instructions: 1 swab topically monthly; cyclobenzaprine 5 mg tablet 5 mg PO BID lamotrigine [Lamictal] 150 mg tablet 150 mg PO DAILY Qty: 90 1RF lamotrigine 200 mg tablet 200 mg PO .QHS Qty: 90 1RF ondansetron 4 mg tablet,disintegrating 4 mg PO Q8H PRN (Reason: nausea and vomiting) Qty: 20 2RF hydroxychloroquine [Plaquenil] 200 MG tablet 400 mg PO DAILY Qty: 0 epinephrine 0.3 mg/0.3 mL auto-injector 1 dose IM PRN PRN (Reason: Allergic Reaction) melatonin 5 mg Tablet 5 mg PO BEDTIME PRN (Reason: Sleep) albuterol sulfate 2.5 mg /3 mL (0.083 %) solution for nebulization 2.5 mg INHALATION Q4-6H PRN (Reason: wheezing ) Qty: 75 0RF Referrals: Patrick Sawyer MD [Primary Care Provider] -
[2024-03-09] MEDS: LORATADINE 10 MG TABLET PO (14:41)
[2024-03-09] MEDS: FAMOTIDINE 20 MG/2 ML VIAL IV (14:43)
[2024-03-09 15:26] LABS: Add Manual Diff / Slide Review NO; Basophils Absolute Auto 0 /uL (0-100); Basophils Percent Auto 0.3 % (0-2); Eosinophils Absolute Auto 100 /uL (0-450); Eosinophils Percent Auto 0.9 % (2-4); Hemoglobin 13.1 g/dL (12.0-16.0); Lymphocytes Absolute Auto 1300 /uL (1100-4500); Lymphocytes Percent Auto 19.1 % (25-40); Mean Corpuscular HGB Conc 34.6 % (30-36); Mean Corpuscular Hemoglobin 30.3 PG (26-34); Mean Corpuscular Volume 87.5 fL (80-100); Monocytes Absolute Auto 300 /uL (0-900); Monocytes Percent Auto 4.7 % (3-14); Neutrophils Absolute Auto 5000 /uL (1500-7000); Platelet Count 200 X10^3/uL (150-400); Red Blood Cell Count 4.34 X10^6/uL (4.0-5.2); Red Cell Distribution Width 13.2 % (11.6-14.8); White Blood Cell Count 6.7 X10^3/uL (4.5-11.0)
[2024-03-09 15:44] LABS: BUN Creatinine Ratio 16.2 (6-22); Blood Urea Nitrogen 11 mg/dL (7-17); Calcium 8.8 mg/dL (8.4-10.2); Carbon Dioxide 24 mmol/L (22-32); Chloride 105 mmol/L (98-107); Estimated Glomerular Filt Rate > 60 mL/min (>60); Glucose 112 mg/dL (70-100); HEMOLYSIS < 15 (0-50); Potassium 3.9 mmol/L (3.4-5.1); Sodium 138 mmol/L (137-145)
== END 2024-03-09 16:29 | disposition home or self-care (01) ==
PROVIDERS: Emergency Provider Student in an Organized Health Care Education/Training Program; Family Provider Family Medicine; PCP Family Medicine
DX: L50.9 Urticaria, unspecified (principal); T78.40XA Allergy, unspecified, initial encounter
CPT/HCPCS: 36415; 80048; 85025; 96374; 99284

== ENCOUNTER 2024-04-16 18:43 | Emergency (ER) | payer OTHER, SELFPAY ==
[2023-11-06 10:26] VITALS: BMI 40.8
[2024-04-16 18:46] VITALS: BP 129/83; PULSE 106; RESP 14; TEMP 36.3; O2SAT 100; BMI 43.0
--- NOTE | 2024-04-16 21:44 | ED_ITS ---
HPI - Wound/Laceration General Chief Complaint: Wound/Laceration Stated Complaint: sliced R thumb on mandolin Time Seen by Provider: 04/16/24 21:44 Source: patient Mode of arrival: Ambulatory History of Present Illness HPI narrative: Patient is a 38-year-old female who presents to the ED for evaluation of laceration to her thumb, states she was using a mandoline cutter prior to arrival cut the palmar aspect of her right thumb, not on any blood thinners not actively bleeding up-to-date on tetanus, not complaining of any other pain or injury. At time of evaluation bleeding controlled. Superficial that does not involve the bone, neurovascularly intact Related Data Home Medications Medication Instructions Recorded Confirmed hydroxychloroquine 200 mg tablet 400 mg PO DAILY ##0 02/28/17 12/03/23 (Plaquenil) epinephrine 0.3 mg/0.3 mL 1 dose IM PRN PRN Allergic Reaction 03/20/18 12/03/23 injection, auto-injector melatonin 5 mg tablet 5 mg PO BEDTIME PRN Sleep 03/20/18 12/03/23 buspirone 10 mg tablet 10 mg PO BID 12/03/23 12/03/23 cyclobenzaprine 5 mg tablet 5 mg PO BID 12/03/23 12/03/23 Previous Rx's Medication Instructions Recorded albuterol sulfate 2.5 mg/3 mL 2.5 mg (3 mL) inhalation Q4-6H PRN 03/20/18 (0.083 %) solution for nebulization wheezing #75 mL Hibiclens swab See Rx Instructions topical 12/03/23 MONTHLY infusion port flush #25 units [facility] PI SLT Surgical Gloves See Rx Instructions .Route 12/03/23 .COMPLEX #1 packet mccain safety needles (disp.) 22 x #50 ea 12/03/23 3/4 lamotrigine 150 mg tablet 150 mg PO DAILY #90 tabs 12/03/23 (Lamictal) lamotrigine 200 mg tablet 200 mg PO .QHS #90 tabs 12/03/23 ondansetron 4 mg disintegrating 4 mg PO Q8H PRN nausea and 12/03/23 tablet vomiting #20 tabs sodium chloride 0.9 % (flush) 20 ml IV DAILY infusion port flush 12/03/23 #240 mL Allergies Allergy/AdvReac Type Severity Reaction Status Date / Time peanut [PEANUT] Allergy Severe Anaphylaxis Verified 04/16/24 18:46 amoxicillin [AMOXICILLIN] Allergy Unknown Verified 04/16/24 18:46 betamethasone [BETAMETHASONE] Allergy Unknown Anaphylaxis Verified 04/16/24 18:46 clarithromycin [From BIAXIN] Allergy Unknown Verified 04/16/24 18:46 coconut [COCONUT] Allergy Unknown Verified 04/16/24 18:46 Iodinated Contrast Media Allergy Unknown Anaphylaxis Verified 04/16/24 18:46 [IODINATED CONTRAST- ORAL AND IV DYE] Penicillins [PENICILLINS] Allergy Unknown Verified 04/16/24 18:46 pineapple [PINEAPPLE] Allergy Unknown Verified 04/16/24 18:46 shellfish derived Allergy Unknown Verified 04/16/24 18:46 [SHELLFISH DERIVED] diphenhydramine AdvReac Verified 04/16/24 18:46 [From Benadryl] Review of Systems Review of Systems Narrative: General: Denies fever, chills, weight loss HEENT: Denies headache, eye drainage, eye irritation, head trauma, sore throat, voice change Cardiovascular: Denies any chest pain, palpitations, shortness of breath, tachycardia Respiratory: Denies any shortness of breath, cough, wheeze, stridor GI/: Denies any abdominal pain, nausea, vomiting, diarrhea, bright red blood per rectum, melanotic stools, urinary frequency, urinary retention, dysuria, hem aturia MSK: Denies any joint pain, muscle pains, swelling Skin: Positive laceration to right thumb Neuro: Denies any headache, lightheadedness, dizziness, fainting, weakness Psych: Denies SI/HI Patient History Medical History (Updated 04/16/24 @ 22:57 by Sanjeev aCrmona DO) Nausea and vomiting Myocardial infarction Chest pain Lupus Palpitations Seizure disorder Migraines Asthma Port-A-Cath in place Surgical History S/P matrixectomy of toe of right foot S/P matrixectomy of toe of left foot Hx of knee surgery Hx of cholecystectomy Social History household members: spouse Smoking Status: Never smoker alcohol intake: never Smoking Status: Never smoker alcohol intake frequency: holidays/special occasions only Substance Use Type: does not use Exam Narrative Exam Narrative: General: Cooperative, comfortable, well-developed, not in acute distress HEENT: Normocephalic, atraumatic, PERRLA, normal sclera, eyelids normal, Neck: Active full range of motion, atraumatic Chest: Normal to inspection, negative crepitus, no overlying erythema ecchymosis Respiratory: Normal respiratory effort, not in acute respiratory distress, clear to auscultation bilaterally negative cough, wheeze, tachypnea, rhonchi, rales Cardiology: Regular rate rhythm negative gallop, murmur, rubs GI/: Normal to inspection, soft, nonrigid, no tenderness to palpation, exam deferred MSK: Full range of active range of motion of all 4 extremities, patient with 0.5 cm laceration noted to the palmar aspect of the right thumb not actively bleeding no foreign body superficial not involving the bone, Skin: No rashes lesions noted Neuro: Alert awake oriented x3, moves all 4 extremities spontaneously, cranial nerves intact, able to answer all questions appropriately follows commands appropriately Psych: Cooperative, negative suicidal or homicidal ideations Initial Vital Signs Initial Vital Signs: Vital Signs Temperature 97.4 F L 04/16/24 18:46 Pulse Rate 106 H 04/16/24 18:46 Respiratory Rate 14 04/16/24 18:46 Blood Pressure 129/83 04/16/24 18:46 Pulse Oximetry 100 04/16/24 18:46 Oxygen Delivery Method Room Air 04/16/24 18:46 Procedures Laceration Repair Laceration 1: Time of procedure: 22:59 Site: other (Thumb) Side (If applicable): right Size (cm): 0.5 Depth: simple, single layer Local Anesthetic: lidocaine 1% Amount of anesthesia used (mL): 1 Skin layer closed with: other (Ethilon) Skin layer suture size: 4-0 Number of sutures: 2 Technique: simple, interrupted Course Orders Ordered: Acetaminophen (Acetaminophen 325 Mg Tablet) 650 mg PO Q4H PRN PRN Reason: Fever/Mild Pain (1-3) Last Admin: 04/16/24 21:51 Dose: 650 mg Documented By: HNG Vital Signs Vital signs: Vital Signs - 8 hr 04/16/24 18:46 Temperature 97.4 F L Pulse Rate 106 H Respiratory Rate 14 Blood Pressure 129/83 Pulse Oximetry 100 Oxygen Delivery Method Room Air MDM - Wound/Laceration Differential Diagnosis Differential diagnosis: Likely laceration and abrasion MDM Narrative Medical decision making narrative: Patient is a 38-year-old female no significant past medical history presents for laceration to the right thumb, was using a mandolin prior to arrival, up-to-date on tetanus. Patient laceration superficial not requiring imaging, neurovascularly intact no involvement of the tendons. Patient was given 1% lidocaine and 2 sutures were placed to the palmar aspect of the laceration. She was given strict return precautions safe for discharge home with outpatient follow up Discharge Plan Departure Patient Disposition: Home Clinical Impression: Finger laceration Activity Restrictions/Additional Instructions: You have 2 sutures that need to be removed in approximately 5-7 days Please read the discharge instructions sheet carefully and bring all papers to all doctor follow-up visits, as it may contain information that your doctor may want to see. Disease processes change and evolve, if your symptoms worsen or if you develop any new symptoms that are concerning to you please return for evaluation. Your evaluation today does not show any evidence of any life- threatening/serious illnesses requiring admission to the hospital or surgery. Please follow-up with your doctor for re-evaluation in approximately 1 day. Seek immediate medical attention for any worrisome symptoms. Prescriptions: No Action buspirone 10 mg tablet 10 mg PO BID [employer] PI SLT Surgical Gloves See Rx Instructions .ROUTE .COMPLEX Qty: 1 0RF Rx Instructions: Use with infusion port flush; (DME) mccain safety needles (disp.) 22 x 3/4 needle See Rx Instructions .Route Qty: 50 0RF Rx Instructions: As directed sodium chloride 0.9 % (flush) Syringe 20 ml IV DAILY Qty: 240 3RF Rx Instructions: administer 20ml monthly for infusion port flush Hibiclens swab See Rx Instructions topical MONTHLY Qty: 25 3RF Rx Instructions: 1 swab topically monthly; cyclobenzaprine 5 mg tablet 5 mg PO BID lamotrigine [Lamictal] 150 mg tablet 150 mg PO DAILY Qty: 90 1RF lamotrigine 200 mg tablet 200 mg PO .QHS Qty: 90 1RF ondansetron 4 mg tablet,disintegrating 4 mg PO Q8H PRN (Reason: nausea and vomiting) Qty: 20 2RF hydroxychloroquine [Plaquenil] 200 MG tablet 400 mg PO DAILY Qty: 0 epinephrine 0.3 mg/0.3 mL auto-injector 1 dose IM PRN PRN (Reason: Allergic Reaction) melatonin 5 mg Tablet 5 mg PO BEDTIME PRN (Reason: Sleep) albuterol sulfate 2.5 mg /3 mL (0.083 %) solution for nebulization 2.5 mg INHALATION Q4-6H PRN (Reason: wheezing ) Qty: 75 0RF Referrals: Patrick Sawyer MD [Primary Care Provider] - Stand Alone Forms: Patient Portal/API/Survey
[2024-04-16] MEDS: ACETAMINOPHEN 325 MG TABLET 650 MG PO (21:51)
[2024-04-16 23:12] VITALS: BP 142/96; PULSE 92; RESP 14; O2SAT 99
== END 2024-04-16 23:13 | disposition home or self-care (01) ==
PROVIDERS: Emergency Provider Student in an Organized Health Care Education/Training Program; Family Provider Family Medicine; PCP Family Medicine
DX: S61.011A Laceration without foreign body of right thumb without damage to nail, initial encounter (principal); W26.0XXA Contact with knife, initial encounter
CPT/HCPCS: 12001; 99283